=== PATIENT | male | born 1965 | race Caucasian/White ===

== ENCOUNTER 2019-02-03 20:39 | Emergency (ER) | payer BC ==
[2019-02-03] MEDS ORDERED: Nitroglycerin 2% Ointment 1 INCH/1 GM Packet ONE (21:01)
[2019-02-03] MEDS ORDERED: Aspirin Chewable 81 MG TAB ONE (21:01)
[2019-02-03] MEDS ORDERED: Famotidine/PF 20 mg/2ml Vial ONE (21:13)
[2019-02-03] MEDS ORDERED: Lidocaine Viscous Sol 2% 15 ml UD Cup ONE (21:13)
[2019-02-03] MEDS ORDERED: Mag-Al Plus 1200 MG/1200 MG/120 MG/30 ML UDCUP ONE (21:13)
[2019-02-03 21:15] LABS: #Basophils 0.1 thou/uL (0.0-0.2); #Eosinphils 0.1 thou/uL (0.0-0.7); #Lymphocytes 1.5 thou/uL (1.20-3.40); #Monocytes 0.8 thou/uL (0.11-0.59); #Neutrophils 5.4 thou/uL (1.40-6.50); %Basophils 1.7 % (0.0-1.0); %Eosinophils 1.6 % (0.0-10.0); %Lymphocytes 19.1 % (21.0-51.0); %Neutrophils 67.6 % (42.0-75.0); Hemoglobin 16.1 g/dL (14.0-18.0); Mean Corpuscular HGB CONC 34.8 g/dL (32.0-36.0); Mean Corpuscular Hemoglobin 32.8 pg (27.0-31.0); Mean Corpuscular Volume 94.3 fL (78.0-98.0); Mean Platelet Volume 6.6 fL (7.4-10.4); Platelet Count 243 thou/uL (130-400); RBC Distribution Width 11.1 % (11.5-14.5); Red Blood Cell (RBC) Count 4.91 mill/uL (4.70-6.10)
[2019-02-03 21:20] LABS: ALT (SGPT) 51 U/L (8-55); AST (SGOT) 41 U/L (5-34); Albumin 4.7 g/dL (3.5-5.0); Alkaline Phosphatase 74 U/L (40-150); Anion Gap 14 mmol/L (10-20); BUN (Urea Nitrogen) 12 mg/dL (8.4-25.7); Bilirubin, Total 1.1 mg/dL (0.2-1.2); CK (CPK) 229 U/L (30-200); Calc. Creatinine Clearance 0 mL/min (70-130); Calcium 10.4 mg/dL (7.8-10.44); Carbon Dioxide 29 mmol/L (22-29); Chloride 103 mmol/L (98-107); Estimated GFR-MDRD 87; Globulin 3.6 g/dL (2.4-3.5); Glucose 96 mg/dL (70-105); Potassium 3.6 mmol/L (3.5-5.1); Protein, Total 8.3 g/dL (6.0-8.3); Sodium 142 mmol/L (136-145)
--- NOTE | 2019-02-03 21:49 | RAD ---
EXAM: CHEST ONE VIEW HISTORY: Chest pain and shortness of breath for one day. COMPARISON: 04/11/2015 FINDINGS: Cardiac silhouette and bronchovascular markings are accentuated by shallow depth inspiration and port able technique. There is overlying soft tissue density as well as cardiac silhouette limiting evaluation of each lung base. However, the lungs are grossly clear. Multiple remote left-sided rib fr actures are seen. [place] screws overlie the right humeral head. No other interval change. IMPRESSION: 1. Limited exam due to shallow depth inspiration, but no acute cardiopulmonary process is appreciated . 2. Multiple remote left-sided rib fractures.
[2019-02-04 00:26] LABS: Troponin I 0.018 ng/mL (< 0.028)
== END 2019-02-04 00:30 | disposition home or self-care (01) ==
LOC: SCSER 20:39
DX: R07.89 Other chest pain (principal); I10 Essential (primary) hypertension
CPT/HCPCS: 71045; 80053; 82550; 84484; 85025; 85379; 93005; 96374; S0028

== ENCOUNTER 2019-06-22 09:40 | Inpatient (IN) | payer BC ==
[2019-06-22 10:16] LABS: Actual Bicarbonate (HCO3a) 15.1 mEq/L (22-28); Analyzer IN Cardio ER; Base Excess (BEa) -9.6 mEq/L (-2.0 to +3.0); Calcium, Ionized 0.69 mmol/L (1.12-1.30); Hemoglobin (Hb) 14.5 g/dL (14.0-18.0); O2 Tension (PaO2) 82.6 mmHg (80.0-100.0); Potassium - ABG Lab 3.47 mmol/L (3.70-5.30); pH, Arterial 7.32 (7.35-7.45)
[2019-06-22 10:18] LABS: Puncture Site RRA
[2019-06-22 10:21] LABS: Hemoglobin 14.7 g/dL (14.0-18.0); Mean Corpuscular HGB CONC 33.5 g/dL (32.0-36.0); Mean Corpuscular Hemoglobin 33.9 pg (27.0-31.0); Mean Platelet Volume 7.4 fL (7.4-10.4); Platelet Count 215 thou/uL (130-400); RBC Distribution Width 12.8 % (11.5-14.5); Red Blood Cell (RBC) Count 4.34 mill/uL (4.70-6.10); White Blood Cell (WBC) Count 16.4 thou/uL (4.8-10.8)
[2019-06-22 10:32] LABS: ALT (SGPT) 21 U/L (8-55); AST (SGOT) 28 U/L (5-34); Albumin 3.1 g/dL (3.5-5.0); Alkaline Phosphatase 48 U/L (40-110); Anion Gap 22 mmol/L (10-20); BUN (Urea Nitrogen) 76 mg/dL (8.4-25.7); Bilirubin, Total 1.1 mg/dL (0.2-1.2); CK (CPK) 447 U/L (30-200); Calc. Creatinine Clearance 0 mL/min (70-130); Carbon Dioxide 12 mmol/L (22-29); Chloride 102 mmol/L (98-107); Estimated GFR-MDRD 10; Globulin 3.5 g/dL (2.4-3.5); Glucose 104 mg/dL (70-105); Lipase 157 U/L (8-78); Potassium 3.6 mmol/L (3.5-5.1); Protein, Total 6.6 g/dL (6.0-8.3); Sodium 132 mmol/L (136-145)
[2019-06-22 10:47] LABS: Band 12 % (5-11); Lymphocytes 8 % (21-51); MDiff Complete? YES; Metamyelocyte 2 % (0-0); Monocytes 17 % (0-10); Neutrophil 61 % (42-75); Platelet Morphology Comment Appears Adequate
[2019-06-22] MEDS ORDERED: Calcium Gluconate 100 MG/ML 10 ML IVPB STA (15:19)
[2019-06-22] MEDS ORDERED: Calcium Gluconate 13.8 MEQ, Admixture Fee 1 EACH in Sodium Chloride 0.9% 100 ML IVPB SCH ×2 (15:30→15:45)
[2019-06-22] MEDS ORDERED: Morphine 2 MG/ML SYRINGE SLOW IVP PRN (15:54)
[2019-06-22] MEDS ORDERED: Lactated Ringer's 1,000 ML IV SCH ×2 (16:00→17:00)
[2019-06-22] MEDS ORDERED: Pantoprazole 40 MG VIAL IVP SCH (16:00)
[2019-06-22] MEDS ORDERED: Morphine 4 MG/ML VIAL SLOW IVP PRN (16:16)
--- NOTE | 2019-06-22 16:26 | HP ---
PRIMARY CARE PHYSICIAN: Alexis Jimenez MD CHIEF COMPLAINT: Worsening abdominal pain, intractable nausea, vomiting, and diarrhea. HISTORY OF PRESENT ILLNESS: A 54-year-old male with past medical history significant for gastroesophageal reflux disease and hypertension, who presents to the ER with worsening abdominal pain and distention as well as frequent loose stools. The patient had initially presented to the [facility], from where he was transferred over here. The patient reportedly developed nausea, vomiting, and frequent loose stools four days ago after a meal of shrimp soup as well as a hamburger. He has had multiple episodes of emesis with last one being two days ago. He has been having frequent loose stools about uncountable times every day since onset of symptoms with last BM being earlier on before my visit. The patient later developed abdominal distention as well as abdominal pain, for which he has taken multiple tablets of Aleve, totaling about 16 tablets since onset of symptoms. The patient also took about six tablets of ibuprofen PM due to insomnia. Of note, the patient is on lisinopril and hydrochlorothiazide, and he has continued to be on these medications since onset of symptoms. He reported generalized weakness as well as dizziness, but denied hematemesis, melena, or hematochezia. Of note, the patient reported that his last urine was 2 days ago and he has not made any urine since Sunday. Due to worsening symptoms, he presented to [facility], where an evaluation with CT scan of the abdomen showed edema of the pancreas consistent with acute pancreatitis. The patient also was found to have acute renal failure as well as severe hypocalcemia with serum calcium of 5.0. The patient was treated with IV fluid and calcium gluconate and had an NG tube inserted and was subsequently transferred over here. Despite treatment with IV fluid, the patient has not made any urine. In the ER here, the patient received normal saline and is being admitted for further evaluation and treatment. There is no history of fever, chills, leg swelling, chest pain, change in mental status, or headache. The patient also denied any fall. Prior to anuria, he denied dysuria. The patient reported that due to the frequency of diarrhea, nausea, and vomiting, he had poor oral intake and was only able to drink some water in the last few days since the vomiting subsided, but he, however, continued to have multiple episodes of frequent loose stools. PAST MEDICAL HISTORY: 1. Hypertension. 2. Gastroesophageal reflux disease. PAST SURGICAL HISTORY: Orthopedic surgery of left lower extremity and ankle. FAMILY HISTORY: Noncontributory. Reviewed. SOCIAL HISTORY: The patient is a former smoker. Last smoking was about 20 years ago. He, however, drinks daily with about 1 to 3 drinks. Denied prior withdrawal symptoms. Denied recreational drug use. ALLERGIES: NO KNOWN DRUG ALLERGY REPORTED. HOME MEDICATIONS: 1. Lisinopril/hydrochlorothiazide 10/12.5 one tablet p.o. daily. 2. Protonix 20 mg p.o. daily. REVIEW OF SYSTEMS: A 12-point review of system performed was negative other than pertinent positives and negatives included in the history of present illness. PHYSICAL EXAMINATION: VITAL SIGNS: Current vitals showed BP of 106/87, pulse 101, respiratory rate 30, SpO2 of 100% on room air. Of note, on presentation to [facility], initial vitals showed BP of 72/45, pulse of 120, respiratory rate of 28, temperature of 97.5, SpO2 of 99% on room air. GENERAL: Male patient, in mild distress. Afebrile. Anicteric. Acyanotic. HEENT: Normocephalic, atraumatic. Oral mucosa is dry. NECK: Supple and nontender with good range of motion. No obvious masses or lymphadenopathy appreciated. CARDIOVASCULAR: Regular rhythm and rate with normal heart sounds 1 and 2. Tachycardic. No obvious murmur was appreciated. RESPIRATORY: Good air entry bilaterally with no obvious crackle, rhonchi, or use of accessory muscles. GASTROINTESTINAL: Abdomen is distended and tympanitic. Bowel sound is noted, but seems hypoactive. Mild diffuse tenderness is appreciated. EXTREMITIES: Grossly normal, looking atraumatic with no obvious edema or erythema. SKIN: No obvious rash appreciated. CENTRAL NERVOUS SYSTEM: Conscious, alert, and oriented x3 with appropriate mental status. Cranial nerves 2 through 12 are grossly intact. The patient moves all extremities. LABORATORY DATA: Initial CBC performed today at [facility] showed WBC count of 16.3, hemoglobin of 15.3, MCV of 94.0, platelets of 223. Initial CMP performed at [facility] showed sodium 135, potassium 3.5, chloride 100, CO2 of 16, anion gap 23, BUN 80, creatinine 6.73, glucose 123, calcium 5.9, magnesium 2.9, total bilirubin 1.2, AST 28, ALT 25, alkaline phosphatase 66, total protein 7.5, albumin 3.7, globulin 3.8. Repeat CMP here 3 hours later showed sodium 132, potassium 3.6, chloride 102, CO2 of 12, anion gap 22, BUN 76, creatinine 5.96, glucose 104, calcium 5.0, total bilirubin 1.0, AST 28, ALT 21, alkaline phosphatase 48, total protein 6.6, albumin 3.1, globulin 3.5. Troponin x2 has been unremarkable. BNP is less than 10. CK is 447. Lipase is 175. Blood gas performed here showed pH of 7.32, pCO2 of 30, pO2 of 82.6, ionized calcium of 0.69. Plasma alcohol level was less than 10. Chest x-ray performed at [facility] showed no airspace density, pulmonary edema or pneumothorax. CT scan of the abdomen and pelvis without contrast showed somewhat severe retroperitoneal edema, evidence of acute pancreatitis as well as fluid collection within mckeon, broadly abutting the undersurface of the stomach. EKG showed sinus tachycardia with rate of 101. ASSESSMENT: 1. Acute pancreatitis with possible pseudocyst formation. 2. Acute severe gastroenteritis. 3. Hypovolemic shock from acute gastroenteritis and pancreatitis. 4. Acute renal failure: Due to hemodynamic factors related to volume depletion, lisinopril use as well as nonsteroidal anti-inflammatory drugs. Superimposed acute tubular necrosis cannot be ruled out. 5. Severe hypocalcemia: This is most likely due to acute pancreatitis. 6. Nonsteroidal anti-inflammatory drug abuse. 7. High anion gap metabolic acidosis. 8. Hyponatremia. 9. History of hypertension: Now hypotensive. 10. Gastroesophageal reflux disease. 11. Presumed food poisoning. 12. Frequent loose stools: Thought to be due to food poisoning and infectious acute gastroenteritis. 13. Nausea and vomiting: Subsided. 14. Abdominal distention. PLAN: 1. We will continue IV resuscitation with bicarb containing fluids and monitor vitals as well as urine output. 2. We will replete serum calcium level. 3. We will start the patient on broad-spectrum antibiotic therapy. 4. We will continue NG tube decompression. 5. We will consult GI. 6. We will monitor electrolytes closely and replete as needed. 7. N.p.o. for now to continue. 8. We will start the patient on Protonix for GI bleeding prophylaxis. 9. DVT prophylaxis with SCDs will be provided. 10. We will hold antihypertensives for now. 11. The patient will be admitted to IM as he is critically ill with guarded prognosis. 12. Further treatment to follow depending on hospital course. Job ID: [id number]
[2019-06-22 16:28] LABS: Albumin 3.2 g/dL (3.5-5.0); BUN (Urea Nitrogen) 77 mg/dL (8.4-25.7); BUN/Creatinine Ratio 12.73; Calc. Creatinine Clearance 0 mL/min (70-130); Chloride 105 mmol/L (98-107); Estimated GFR-MDRD 10; Glucose 104 mg/dL (70-105); Potassium 3.7 mmol/L (3.5-5.1); Sodium 136 mmol/L (136-145)
[2019-06-22 16:47] LABS: Calcium 5.2 mg/dL (7.8-10.44); Carbon Dioxide Less than 8 mmol/L (22-29); Phosphorus 1.8 mg/dL (2.3-4.7)
[2019-06-22] MEDS: Sodium Bicarbonate 150 MEQ in Dextrose 5% in Water 1,000 ML IV SCH ×2 (19:30→23:09)
[2019-06-22 19:37] LABS: Albumin 3.1 g/dL (3.5-5.0); Anion Gap 19 mmol/L (10-20); BUN (Urea Nitrogen) 82 mg/dL (8.4-25.7); BUN/Creatinine Ratio 14.44; Calc. Creatinine Clearance 21 mL/min (70-130); Calcium 4.7 mg/dL (7.8-10.44); Carbon Dioxide 20 mmol/L (22-29); Chloride 98 mmol/L (98-107); Estimated GFR-MDRD 10; Glucose 81 mg/dL (70-105); Phosphorus 3.3 mg/dL (2.3-4.7); Sodium 134 mmol/L (136-145)
--- NOTE | 2019-06-22 21:55 | CON ---
DATE OF CONSULTATION: 06/22/2019 REASON FOR CONSULTATION: Acute pancreatitis. CONSULTING PROVIDER: Dr. Jersey Nance. HISTORY OF PRESENT ILLNESS: The patient is a 54-year-old male with past medical history of GERD, hypertension, and alcohol abuse presenting with complaints of abdominal pain. He states that he was in his usual state of health until approximately 3 days ago when he experienced increased nausea and vomiting characterized as 12 discrete episodes over the course of 24 hours with nonbloody emesis. However, the following day, this resolved into more of a queasy like sensations throughout his entire body in addition to diarrhea, having approximately 4-5 liquid dark brown bowel movements over the last couple days. He did have some darker colored almost black stools, but this was associated with the ingestion of Pepto-Bismol at the same time. However, approximately 2 days ago, he began having increased periumbilical abdominal pain characterized as a pressure/sharp type sensation. It would radiate to the lower abdominal quadrants and right and left flanks. It was intermittent where it would occur for every 30 to 60 minutes and would last for seconds in duration and then resolve. The pain did not have any clear alleviating or exacerbating factors, although he did notice that his pain would sometimes get worse with bending over. This was associated with increased abdominal distention, subjective fevers and chills. However, he denies any hematemesis, melena, hematochezia, dysphagia, odynophagia. With worsening of his symptoms and worsening of his pain, it prompted him to seek healthcare assistance at [facility]. While in the ER, he was noted to have acute kidney injury in addition to CT findings consistent with acute pancreatitis. He was subsequently transferred to [facility] for further evaluation and management. REVIEW OF SYSTEMS: A 10-category review of systems was obtained with all responses negative except for the pertinent positives as listed in HPI. PAST MEDICAL HISTORY: As per HPI. PAST SURGICAL HISTORY: Left lower extremity fracture with internal fixation. FAMILY HISTORY: Denies any GI malignancies. SOCIAL HISTORY: Former tobacco use, but quit 20 years ago. Drinks approximately a six-pack daily along with vodka and water daily. Denies any illicit drug use. OUTPATIENT MEDICATIONS: 1. Lisinopril/hydrochlorothiazide 10/12.5 mg tablet daily. 2. Protonix 20 mg daily. ALLERGIES: NO KNOWN DRUG ALLERGIES. PHYSICAL EXAMINATION: VITAL SIGNS: Temperature 97.6, pulse 101, blood pressure 106/87, respiratory rate 30, saturating 100% on room air. GENERAL: The patient was lying in bed, in no acute distress. Alert and oriented x4. HEENT: Normocephalic, atraumatic. NECK: Supple. No JVD or scleral icterus noted. CARDIOVASCULAR: Tachycardic rate, but regular rhythm. No discernible murmurs, gallops, or rubs. RESPIRATORY: Clear to auscultation bilaterally with no discernible wheezes or rales. ABDOMEN: Hypoactive bowel sounds. Soft. Mild abdominal distention that is tympanic to percussion. Increased tenderness to palpation in the right flank, periumbilical, left flank and suprapubic regions. EXTREMITIES: No cyanosis, clubbing, or edema. LABORATORY DATA: CBC with a white blood cell count of 16.4, hemoglobin 14.7, hematocrit 43.9, platelets 215. Chemistry with a sodium of 132, potassium 3.6, chloride 102, CO2 12, BUN 76, creatinine 5.96, glucose 104, AST 28, ALT 21, alkaline phosphatase 48, total bilirubin 1.1, albumin 3.1, lipase 157, calcium 5. IMAGING DATA: CT of the abdomen and pelvis was obtained on June 22, 2019, which showed severe fat stranding surrounding the entire pancreas and spleen. The spleen did note an irregular contour and shape with indeterminate significance, heterogeneous features were seen in the liver consistent with fatty liver. However, there was also an increased amount of retroperitoneal edema and a 10 x 4 x 4 cm fluid collection abutting the caudal surface of the stomach consistent with a pseudocyst. ASSESSMENT AND PLAN: The patient is a 54-year-old male with past medical history of gastroesophageal reflux disease, hypertension, and alcohol abuse, presenting with acute pancreatitis. Acute pancreatitis. The patient is presenting with acute onset of nausea, vomiting, diarrhea, and periumbilical abdominal pain that has been progressively worsening over the last 3 or 4 days. Upon entry into the [facility], he was noted to have an elevated white blood cell count in addition to elevated BUN and creatinine concerning for acute kidney injury. However, CT scan also showed severe fat stranding surrounding the entire pancreas as well as a mildly elevated lipase consistent with acute pancreatitis. He is also exhibiting severe hypocalcemia most likely due to the onset of pancreatitis and has received 2 g of calcium gluconate thus far at the [facility]. At this time, I would characterize his pancreatitis as moderately severe with the formation of the pancreatic pseudocyst. At this time, he would benefit from aggressive IV fluid resuscitation in addition to n.p.o. and pain control. RECOMMENDATIONS: 1. We would start the patient on goal-directed therapy with aggressive IV fluid resuscitation with either normal saline or lactated Ringer's at approximately 3 mL/kg per hour. Given the patient's tenuous kidney function, he may have sustained acute tubular necrosis as result of increased NSAID use, so careful attention will need to be on his volume status to avoid hypervolemia. 2. Pain control per primary team. 3. We will keep the patient n.p.o. for now in light of acute pancreatitis. There was some concern about a possible small bowel obstruction, but based on imaging seems more of an ileus. Continuation of the NG tube to low intermittent wall suction is fine. 4. With aggressive IV fluid resuscitation, again careful attention should be paid to hypervolemia and may need serial bladder pressures in order to monitor for possible abdominal compartment syndrome. 5. We will continue to monitor electrolytes, specifically magnesium and calcium and replacement as needed. 6. We will continue to follow. Please call with any questions. Job ID: [id number]
[2019-06-22] MEDS: Lactated Ringer's 1,000 ML IV SCH (23:17)
[2019-06-23] MEDS: Lactated Ringer's 1,000 ML IV SCH ×8 (03:01→21:50)
--- NOTE | 2019-06-23 03:37 | CON ---
DATE OF CONSULTATION: 06/22/2019 CONSULTING PHYSICIAN: Dr. Nance from ER. REASON FOR CONSULT: Acute kidney injury. REASON FOR ADMISSION: Nausea, vomiting, and diarrhea. HISTORY OF PRESENT ILLNESS: A 54-year-old male with history of hypertension, GERD, alcohol use, came to the hospital with abdominal pain, nausea, vomiting. The patient was found to have elevated creatinine. His creatinine was found to be 6.05 with a bicarb of 8 and Nephrology consulted. The patient is feeling better. He was on IV fluids and is currently seen in IM. Denies any chest pain or palpitation. No fever or chills. PAST MEDICAL HISTORY: Positive for hypertension, GERD, and alcohol use. PAST SURGICAL HISTORY: Orthopedic surgery. HOME MEDICATIONS: Lisinopril, hydrochlorothiazide, Protonix. ALLERGIES: NO KNOWN DRUG ALLERGIES. SOCIAL HISTORY: He is a former smoker and drinks vodka daily. FAMILY HISTORY: No history of kidney disease. REVIEW OF SYSTEMS: CONSTITUTIONAL: Negative for weight loss or gain, ability to conduct usual activities. SKIN: Negative for rash, itching. EYES: Negative for double vision, pain. ENT/MOUTH: Negative for nose bleeding, neck stiffness, pain, tenderness. CARDIOVASCULAR: Negative for palpitations, dyspnea on exertion, orthopnea. RESPIRATORY: Negative for shortness of breath, wheezing, cough, hemoptysis, fever or night sweats. GASTROINTESTINAL: Negative for poor appetite, abdominal pain, heartburn, nausea, vomiting, constipation, or diarrhea. GENITOURINARY: Negative for urgency, frequency, dysuria, nocturia. MUSCULOSKELETAL: Negative for pain, swelling. NEUROLOGIC/PSYCHIATRIC: Negative for anxiety, depression. ALLERGY/IMMUNOLOGIC: Negative for skin rash, bleeding tendency. PHYSICAL EXAMINATION: GENERAL: Reveals a well-built male, in no apparent distress. VITAL SIGNS: Temperature 97.5, pulse 101, respiratory rate 28, blood pressure 106/87. HEENT: Atraumatic, normocephalic. Oral mucosa is moist. NECK: Supple. CV: S1, S2 heard. Rate and rhythm regular. RESPIRATORY: Clear to auscultation. GASTROINTESTINAL: Abdomen is soft. MUSCULOSKELETAL: 1+ edema. DERMATOLOGIC: No skin rash. NEUROLOGIC: Alert and awake. PSYCHOLOGIC: Mood and affect normal. LABORATORY DATA: Potassium 3.0, BUN is 82, creatinine is 5.6. ASSESSMENT AND PLAN: 1. Acute kidney injury, most likely from volume depletion. Agree with hydration. 2. Hypokalemia. Currently on LR. Monitor. 3. Metabolic acidosis. Bicarb level is better. 4. Hypocalcemia, on calcium supplement. 5. Hypoalbuminemia. 6. Leukocytosis and pancreatitis. 7. Continue supportive care and hold nephrotoxins including lisinopril, and avoid nephrotoxins. Renally dose medications. We will continue to follow. Thank you for the consult. Job ID: [id number]
[2019-06-23 05:25] LABS: ALT (SGPT) 19 U/L (8-55); AST (SGOT) 25 U/L (5-34); Albumin 2.9 g/dL (3.5-5.0); Alkaline Phosphatase 53 U/L (40-110); Anion Gap 18 mmol/L (10-20); BUN (Urea Nitrogen) 80 mg/dL (8.4-25.7); Bilirubin, Total 0.9 mg/dL (0.2-1.2); Calc. Creatinine Clearance 26 mL/min (70-130); Carbon Dioxide 20 mmol/L (22-29); Chloride 101 mmol/L (98-107); Estimated GFR-MDRD 13; Globulin 3.4 g/dL (2.4-3.5); Glucose 98 mg/dL (70-105); Potassium 3.6 mmol/L (3.5-5.1); Protein, Total 6.3 g/dL (6.0-8.3); Sodium 135 mmol/L (136-145)
[2019-06-23 05:29] LABS: Calcium 5.3 mg/dL (7.8-10.44)
[2019-06-23 05:32] LABS: Band 26 % (5-11); Eosinophils 1 % (0-10); Hemoglobin 12.8 g/dL (14.0-18.0); Hypochromia SLIGHT = 6-15 cells (100X) (0-5/hpf); Lymphocytes 6 % (21-51); MDiff Complete? YES; Mean Corpuscular HGB CONC 34.8 g/dL (32.0-36.0); Mean Corpuscular Hemoglobin 34.4 pg (27.0-31.0); Mean Corpuscular Volume 98.8 fL (78.0-98.0); Mean Platelet Volume 6.8 fL (7.4-10.4); Metamyelocyte 2 % (0-0); Monocytes 15 % (0-10); Neutrophil 50 % (42-75); Platelet Count 204 thou/uL (130-400); Platelet Morphology Comment Appears Adequate; RBC Distribution Width 12.5 % (11.5-14.5); Red Blood Cell (RBC) Count 3.73 mill/uL (4.70-6.10)
[2019-06-23] MEDS ORDERED: Calcium Gluconate 13.8 MEQ in Sodium Chloride 0.9% 100 ML IVPB SCH (07:00)
[2019-06-23] MEDS ORDERED: FLU VACC QS2019-20(6MOS UP)/PF 60 MCG/0.5 ML SYRINGE IM ONE (09:00)
[2019-06-23] MEDS: Pantoprazole 40 MG VIAL IVP SCH (10:07)
--- NOTE | 2019-06-23 10:26 | PRG ---
DATE OF SERVICE: 06/23/2019 SUBJECTIVE: This is a 54-year-old male being seen for acute kidney injury. The patient denied nausea, vomiting, or chest pain. OBJECTIVE: See above. The patient is awake and alert, in no acute distress. VITAL SIGNS: Pulse 80, breathing , blood pressure 128/84. GENERAL APPEARANCE AND MENTAL STATUS: Fair. HEAD/NECK: Normocephalic. Atraumatic. EYES: EOMI. No deformity. EARS: Clear. No ulcers. NOSE: Intact. No lesions. MOUTH: Clear. No discharge. THROAT: Clear. No exudate. LUNGS: Clear. No crackles. CARDIAC: S1, S2. No rub. ABDOMEN: Benign. Bowel sounds positive. GENITALIA/RECTUM: Clark absent. BACK/EXTREMITIES: Edema 0+. NEUROLOGICAL: Alert and motor intact. SKIN: LYMPHATICS: LABORATORY DATA: Labs reviewed. ASSESSMENT AND PLAN: 1. Stage 5 chronic kidney disease. No indication for dialysis. 2. Hypertension, stable. 3. Anemia, stable. Continue hydration. No indication for dialysis. 4. Hypocalcemia. Would recommend aggressive calcium replacement with vitamin D. Job ID: [id number]
[2019-06-23 13:41] LABS: Albumin 3.1 g/dL (3.5-5.0); Anion Gap 17 mmol/L (10-20); BUN (Urea Nitrogen) 71 mg/dL (8.4-25.7); BUN/Creatinine Ratio 19.35; Calc. Creatinine Clearance 34 mL/min (70-130); Carbon Dioxide 21 mmol/L (22-29); Chloride 102 mmol/L (98-107); Estimated GFR-MDRD 17; Glucose 87 mg/dL (70-105); Phosphorus 3.4 mg/dL (2.3-4.7); Sodium 137 mmol/L (136-145)
[2019-06-23 13:49] LABS: Calcium 5.8 mg/dL (7.8-10.44); Potassium 2.8 mmol/L (3.5-5.1)
[2019-06-23 14:45] VITALS: BMI 32.1
[2019-06-23 14:54] LABS: Bacteria/HPF None Seen HPF (None Seen); Bilirubin Negative (Negative); Blood, Urine 2+ (Negative); Clarity Clear (Clear); Glucose, Urine (Dipstick) Normal (Negative); Leukocyte Negative Leu/uL (Negative); Nitrite Negative (Negative); Protein, Urine (Dipstick) 50 mg/dL (Neg-Trace); RBC/HPF 0-3 HPF (0-3); Squamous Epithelial None Seen HPF (0-3); Urobilinogen Normal mg/dL (Less than 2); WBC/HPF 0-3 HPF (0-3)
--- NOTE | 2019-06-23 15:03 | PDOC.HOSPP ---
- Subjective Encounter Date: 06/23/19 Encounter Time: 15:03 Subjective: 54 y/o male with GERD and HTN admitted with worsening abdominal pain and distension associated with nausea, vomiting and diarrhea. Ct showed features of acute pancreatitis. patient also has acute renal failure associated with metabolic acidosis and severe hypocalcemia. feeling better but abdominal distension persists. No fever. Nausea and vomiting has subsided. Still having some loose stools though frequency has decreased - Objective Vital Signs & Weight: Vital Signs (12 hours) Temp Pulse Ox 06/23/19 11:22 97.8 F 06/23/19 08:00 100 06/23/19 07:13 98.2 F 06/23/19 03:47 98.4 F Weight Admit Weight 220 lb Weight 230 lb 12.8 oz Most Recent Monitor Data Heart Rate from ECG 100 NIBP 142/79 NIBP BP-Mean 100 Respiration from ECG 26 SpO2 100 I&O: 06/22/19 06/23/19 06/24/19 06:59 06:59 06:59 Intake Total 2692 Output Total 1000 500 Balance -1000 2192 Result Diagrams: 06/23/19 04:32 06/23/19 12:55 Hospitalist ROS - Medication Medications: Active Medications Generic Name Dose Route Start Last Admin Trade Name Freq PRN Reason Stop Dose Admin Lactated Ringer's 1,000 mls @ 300 mls/hr 06/23/19 11:32 06/23/19 12:05 Lactated Ringer's IV 1,000 mls .[id number] ARCHIE Administration Pantoprazole Sodium 40 mg 06/23/19 09:00 06/23/19 10:07 Protonix IVP 40 mg DAILY ARCHIE Administration Sodium Chloride 10 ml 06/22/19 21:00 06/23/19 10:07 Flush - Normal Saline IVF 10 ml Q12HR ARCHIE Administration - Exam General Appearance: awake alert Eye: PERRL, anicteric sclera ENT: normocephalic atraumatic Neck: supple, symmetric, no JVD Heart: RRR Heart - other findings: tachycardic Respiratory: no wheezes, no rales, no ronchi Respiratory - other findings: fair air entry bilaterally Gastrointestinal: tender to palpation, distended, diminished bowl sounds Extremities: no cyanosis, no edema Neurological: cranial nerve grossly intact, no focal deficits Musculoskeletal: normal tone, no muscle wasting Psychiatric: normal affect, A&O x 3 Hosp A/P (1) Acute pancreatitis Code(s): K85.90 - ACUTE PANCREATITIS WITHOUT NECROSIS OR INFECTION, UNSP Status: Acute (2) Acute renal failure Status: Acute (3) Adynamic ileus Code(s): K56.0 - PARALYTIC ILEUS Status: Acute (4) Metabolic acidosis Code(s): E87.2 - ACIDOSIS Status: Acute (5) Hypocalcemia Code(s): E83.51 - HYPOCALCEMIA Status: Acute (6) Hypokalemia Code(s): E87.6 - HYPOKALEMIA Status: Acute (7) Abdominal distension Code(s): R14.0 - ABDOMINAL DISTENSION (GASEOUS) Status: Acute (8) Acute infective gastroenteritis Code(s): A09 - INFECTIOUS GASTROENTERITIS AND COLITIS, UNSPECIFIED Status: Acute (9) Volume depletion Code(s): E86.9 - VOLUME DEPLETION, UNSPECIFIED Status: Acute (10) Shock circulatory Code(s): R57.9 - SHOCK, UNSPECIFIED Status: Acute - Plan Increase LR to 300 cc/hr. monitor closely for fluid overload. follow electrolytes and replete. patient has severe hypocalcemia from saponification. Will 19.4 meq of calcium gluconate as well as 40 meq of KCL. Continue NG decompression and NPO. Will place PICC to facilitate electrolyte correction. parenteral nutrition is contemplated in the next few days unless ileus resolves. Monitor for abdominal compartment syndrom. monitor renal function. Analgesic as needed. Appreciate GI and nephrology input
[2019-06-23] MEDS ORDERED: Potassium Chloride 40 MEQ in Sodium Chloride 0.9% 250 ML 250 ML IVPB SCH ×2 (15:45→21:30)
[2019-06-23 20:23] LABS: Albumin 3.3 g/dL (3.5-5.0); Anion Gap 16 mmol/L (10-20); BUN (Urea Nitrogen) 64 mg/dL (8.4-25.7); BUN/Creatinine Ratio 21.62; Calc. Creatinine Clearance 42 mL/min (70-130); Calcium 6.5 mg/dL (7.8-10.44); Carbon Dioxide 22 mmol/L (22-29); Chloride 105 mmol/L (98-107); Estimated GFR-MDRD 22; Glucose 78 mg/dL (70-105); Potassium 3.1 mmol/L (3.5-5.1); Sodium 140 mmol/L (136-145)
--- NOTE | 2019-06-23 20:25 | CON ---
DATE OF CONSULTATION: HISTORY OF PRESENT ILLNESS: Jersey Herbert is a very pleasant 54-year-old male, who has been experiencing abdominal discomfort, nausea, vomiting, and diarrhea for 4 to 5 days. He thinks he got food poisoning from a dive in [place]. Subsequently, he has been admitted here. He has an NG tube in place and says he feels much better. Never had a similar episode in the past. Not a daily drinker. PAST MEDICAL HISTORY: Remarkable for getting his right lower extremity trapped in farming hardware. It was so embedded in the hardware. They had to get cutting torch and cut a piece off the hardware behind the tractor to get his leg out to take him to the hospital. Apparently, he had a tendon translocation and a prolonged surgery to get his foot reattached. He then went to the [facility] in [place], spent 2-1/2 years in the hospital. He has had left lower extremity fracture when he was dancing with his daughter the night before the wedding. This required surgical repair with Dr. Ortega. FAMILY HISTORY: Negative for lung disease in early age. SOCIAL HISTORY: He quit smoking 20 years ago. He drinks on a daily basis, but denies heavy alcohol intake. 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 OUTPATIENT MEDICATIONS: 1. Lisinopril. 2. Hydrochlorothiazide. 3. Protonix. ALLERGIES: HE HAS NO DRUG ALLERGIES. REVIEW OF SYSTEMS: Otherwise, negative. He has never been told he had liver disease or pancreatitis in the past. PHYSICAL EXAMINATION: VITAL SIGNS: He is afebrile. Systolic blood pressure is in the 100 range, respiratory rates in the teens. GENERAL: He is comfortable, in no distress. HEENT: Pupils are equal. Sclerae anicteric. His NG tube with green liquid in the NG tube. NECK: Supple. No lymphadenopathy. LUNGS: Clear. HEART: Regular rhythm. S1 and S2 are normal. ABDOMEN: Nontender. EXTREMITIES: Without clubbing, cyanosis, or edema. NEUROLOGICAL: Nonfocal. LABORATORY DATA: White count 11, hemoglobin 12.8, platelets 204. Sodium 135, potassium 3.6, chloride 101, bicarb 20, BUN 80, creatinine 4.7, creatinine 6.05 when he arrived. AST and ALT are normal. Alkaline phosphatase is normal. Albumin was 2.9. Blood gas 7.32, CO2 30, pO2 82. IMPRESSION: Enteritis symptoms. He had fat stranding around his pancreas, but a minimal elevation of the lipase. On CT scanning, probably has fatty liver and probably does drink more than he admits to. Based on my review of the CT, I suspect he had pancreatitis that is resolving prior to his admission. We will continue with aggressive volume resuscitation per Gastroenterology. At this point in time, he appears to be clinically improving and he says he feels 100% better than he did on admission. TIME SPENT: This is a 70-minute consult, 50% of time spent on the unit coordinating care. Job ID: [id number]
--- NOTE | 2019-06-23 23:50 | PRG ---
DATE OF SERVICE: 06/23/2019 SUBJECTIVE: Mr. Herbert has been feeling better today. He has no significant abdominal pain. No nausea or vomiting. OBJECTIVE: VITAL SIGNS: Temperature 98.3, pulse 107, oxygen saturation 100%. GENERAL: He is in no acute distress. Alert and oriented x3. LUNGS: Clear to auscultation bilaterally. HEART: Regular rate and rhythm without murmur. ABDOMEN: Soft, nontender, nondistended. Bowel sounds are present. EXTREMITIES: No lower extremity edema. LABORATORY DATA: White blood cell count 11.0, hemoglobin is 12.8, down from 14.7 yesterday, platelets 204. Sodium 140, potassium 3.1, BUN 64, creatinine 2.96, calcium 6.5, albumin 3.3. IMPRESSION: 1. Severe acute pancreatitis complicated by acute renal failure. He has hypocalcemia concerning for saponification. He has a significant fluid collection adjacent to the stomach, which is not a mature pseudocyst at this point. RECOMMENDATIONS: 1. IV fluids. His creatinine is improving. His hemoglobin is decreased indicating rehydration. 2. Continue IV fluids. 3. Continue to follow the trend of his labs and clinical status. 4. Replace calcium as needed. Job ID: [id number]
[2019-06-24 04:12] LABS: Band 20 % (5-11); Hemoglobin 12.3 g/dL (14.0-18.0); Lymphocytes 7 % (21-51); MDiff Complete? YES; Mean Corpuscular HGB CONC 34.9 g/dL (32.0-36.0); Mean Corpuscular Hemoglobin 34.2 pg (27.0-31.0); Mean Corpuscular Volume 97.9 fL (78.0-98.0); Mean Platelet Volume 6.5 fL (7.4-10.4); Metamyelocyte 1 % (0-0); Monocytes 20 % (0-10); Neutrophil 52 % (42-75); Platelet Count 200 thou/uL (130-400); Platelet Morphology Comment Appears Adequate; RBC Distribution Width 12.6 % (11.5-14.5); White Blood Cell (WBC) Count 13.7 thou/uL (4.8-10.8)
[2019-06-24 04:17] LABS: ALT (SGPT) 19 U/L (8-55); AST (SGOT) 25 U/L (5-34); Albumin 2.9 g/dL (3.5-5.0); Alkaline Phosphatase 62 U/L (40-110); Anion Gap 17 mmol/L (10-20); BUN (Urea Nitrogen) 54 mg/dL (8.4-25.7); Calc. Creatinine Clearance 52 mL/min (70-130); Calcium 6.7 mg/dL (7.8-10.44); Carbon Dioxide 20 mmol/L (22-29); Chloride 108 mmol/L (98-107); Estimated GFR-MDRD 29; Globulin 3.2 g/dL (2.4-3.5); Glucose 94 mg/dL (70-105); Magnesium 2.2 mg/dL (1.6-2.6); Phosphorus 3.2 mg/dL (2.3-4.7); Potassium 3.2 mmol/L (3.5-5.1); Protein, Total 6.1 g/dL (6.0-8.3); Sodium 142 mmol/L (136-145)
[2019-06-24] MEDS: Lactated Ringer's 1,000 ML IV SCH ×7 (04:30→23:50)
[2019-06-24] MEDS ORDERED: Calcium Gluconate 13.8 MEQ in Sodium Chloride 0.9% 100 ML IVPB SCH (06:00)
[2019-06-24] MEDS: Pantoprazole 40 MG VIAL IVP SCH (10:13)
--- NOTE | 2019-06-24 10:44 | PRG ---
DATE OF SERVICE: 06/24/2019 SUBJECTIVE: This is a 54-year-old gentleman, being seen for acute kidney injury. The patient denied nausea, vomiting, or chest pain. OBJECTIVE: CONSTITUTIONAL: The patient is awake and alert. VITAL SIGNS: Pulse 100, breathing 16, blood pressure 150/95. GENERAL APPEARANCE AND MENTAL STATUS: Fair. HEAD/NECK: Normocephalic. Atraumatic. EYES: EOMI. No deformity. EARS: Clear. No ulcers. NOSE: Intact. No lesions. MOUTH: Clear. No discharge. THROAT: Clear. No exudate. LUNGS: Clear. No crackles. CARDIAC: S1, S2. No rub. ABDOMEN: Benign. Bowel sounds positive. GENITALIA/RECTUM: Clark absent. BACK/EXTREMITIES: Edema 0+. NEUROLOGICAL: Alert and motor intact. SKIN: LYMPHATICS: LABORATORY DATA: Reviewed. ASSESSMENT AND PLAN: 1. Acute kidney injury, improved. Acute tubular necrosis, improved. 2. Hypertension, stable. 3. Anemia, stable. 4. Medication based on GFR, appropriate. 5. Hypokalemia, recommend high potassium diet. 6. Hypocalcemia, continue aggressive replacement. No indication for dialysis. Job ID: [id number]
[2019-06-24] MEDS ORDERED: Lorazepam 2 MG/ML VIAL SLOW IVP PRN (11:04)
[2019-06-24] MEDS ORDERED: Potassium Chloride 40 MEQ in Sodium Chloride 0.9% 250 ML 250 ML IVPB SCH (11:30)
--- NOTE | 2019-06-24 15:16 | PDOC.HOSPP ---
- Subjective Encounter Date: 06/24/19 Encounter Time: 12:16 Subjective: 54 y/o male with GERD and HTN admitted with worsening abdominal pain and distension associated with nausea, vomiting and diarrhea. Ct showed features of acute pancreatitis. patient also has acute renal failure associated with metabolic acidosis and severe hypocalcemia. feeling better but abdominal distension persists. No fever. Nausea and vomiting has subsided. Still having frequent stools though consistency is improving. - Objective Vital Signs & Weight: Vital Signs (12 hours) Temp Pulse Ox 06/24/19 07:24 100 06/24/19 03:38 98.5 F Weight Admit Weight 220 lb Weight 230 lb 12.8 oz Most Recent Monitor Data Heart Rate from ECG 103 NIBP 162/106 NIBP BP-Mean 124 Respiration from ECG 30 SpO2 97 I&O: 06/23/19 06/24/19 06/25/19 06:59 06:59 06:59 Intake Total 9929 Output Total 1000 4475 Balance -1000 5454 Result Diagrams: 06/24/19 03:27 06/24/19 03:27 Hospitalist ROS - Medication Medications: Active Medications Generic Name Dose Route Start Last Admin Trade Name Freq PRN Reason Stop Dose Admin Lactated Ringer's 1,000 mls @ 300 mls/hr 06/23/19 11:32 06/24/19 10:12 Lactated Ringer's IV 1,000 mls .[id number] ARCHIE Administration Calcium Gluconate 18.4 meq/ 400 mls @ 100 mls/hr 06/24/19 15:30 06/23/19 17: 38 Sodium Chloride IVPB 06/24/19 19:29 400 mls 1530 ARCHIE Administration Pantoprazole Sodium 40 mg 06/23/19 09:00 06/24/19 10:13 Protonix IVP 40 mg DAILY ARCHIE Administration Sodium Chloride 10 ml 06/22/19 21:00 06/24/19 10:12 Flush - Normal Saline IVF 10 ml Q12HR ARCHIE Administration - Exam General Appearance: awake alert Eye: PERRL, anicteric sclera ENT: normocephalic atraumatic, moist mucosa Neck: supple, symmetric, no JVD Heart: RRR Heart - other findings: tachycardic Respiratory: no wheezes, no rales, no ronchi Respiratory - other findings: fair air entry bilaterally with no obvious crackles or rhonchi Gastrointestinal: non-tender, distended Gastrointestinal - other findings: bowel sound present Extremities: no cyanosis, no edema Neurological: cranial nerve grossly intact, no focal deficits Psychiatric: normal affect, A&O x 3 Hosp A/P (1) Acute pancreatitis Code(s): K85.90 - ACUTE PANCREATITIS WITHOUT NECROSIS OR INFECTION, UNSP Status: Acute (2) Acute renal failure Status: Acute (3) Adynamic ileus Code(s): K56.0 - PARALYTIC ILEUS Status: Acute (4) Metabolic acidosis Code(s): E87.2 - ACIDOSIS Status: Acute (5) Hypocalcemia Code(s): E83.51 - HYPOCALCEMIA Status: Acute (6) Hypokalemia Code(s): E87.6 - HYPOKALEMIA Status: Acute (7) Abdominal distension Code(s): R14.0 - ABDOMINAL DISTENSION (GASEOUS) Status: Acute (8) Acute infective gastroenteritis Code(s): A09 - INFECTIOUS GASTROENTERITIS AND COLITIS, UNSPECIFIED Status: Acute (9) Volume depletion Code(s): E86.9 - VOLUME DEPLETION, UNSPECIFIED Status: Acute (10) Shock circulatory Code(s): R57.9 - SHOCK, UNSPECIFIED Status: Acute - Plan Continue LR at 300 cc/hr. monitor closely for fluid overload. Replete serum potassium and calcium with calcium gluconate and potassium chloride Follow electrolytes and replete as needed. Start clear liquid diet Monitor for abdominal compartment syndrom. monitor renal function. Analgesic as needed. Appreciate GI and nephrology input
[2019-06-24] MEDS ORDERED: CALCIUM GLUCONATE IVPB SCH (15:30)
[2019-06-24] MEDS ORDERED: SODIUM CHLORIDE 0.9% IVPB SCH (15:30)
--- NOTE | 2019-06-24 16:53 | PRG ---
DATE OF SERVICE: 06/24/2019 SUBJECTIVE: Mr. Herbert is feeling better. His intake and output positive 5454. He had 9929 in. His NG output is actually not recorded. The nurse tells me it is about 100 mL over the last 24 hours. He is eating ice and says he has had a bowel movement. OBJECTIVE: Lungs: Clear. HEART: Regular rhythm. ABDOMEN: Nontender. EXTREMITIES: Without edema. LABORATORY DATA: White count 13.7, hemoglobin 12.3, and platelets 200. Sodium 142, potassium 3.2, chloride 108, bicarb 20, BUN 54, and creatinine 2.38. IMPRESSION: 1. Severe intravascular volume depletion, improving with improving renal function. 2. Pancreatitis, based mostly on clinical presentation and CT findings. PLAN: Continue supportive care. He is ready for the NG tube come out, I will defer to Gastroenterology. Job ID: [id number]
--- NOTE | 2019-06-24 20:02 | PRG ---
DATE OF SERVICE: 06/24/2019 SUBJECTIVE: Mr. Herbert is tolerating clear liquids well. He has no abdominal pain or nausea or vomiting. OBJECTIVE: VITAL SIGNS: Temperature is 99.1, pulse has been in the 100 teens, blood pressure 187/108. GENERAL: He is in no acute distress. Alert and oriented x3. LUNGS: Clear to auscultation bilaterally. HEART: Tachycardic. S1 and S2. ABDOMEN: Soft, nontender, nondistended. Bowel sounds are present. EXTREMITIES: No lower extremity edema. LABORATORY DATA: White blood cell count 13.7, hemoglobin 12.3, platelets 200. Potassium 3.2, BUN 54, creatinine 2.38, albumin 2.9. IMPRESSION: 1. Severe acute alcoholic pancreatitis. Complicated by acute renal failure and hypocalcemia and peripancreatic fluid collection. He treated himself at home prior to admission with nonsteroidal anti-inflammatory drugs and hydrocodone, which likely resulted in his lower lipase at the time of admission; however, he became severely dehydrated by the time he presented, and came in with acute tubular necrosis. 2. Acute renal failure. RECOMMENDATIONS: 1. He is clinically improving. Tolerating clear liquids well. We will advance his diet to a low fat diet as he tolerates. The NG tube has been discontinued. 2. Replace calcium as needed. 3. IV fluids. 4. Follow trend of the creatinine. Job ID: [id number]
[2019-06-24] MEDS ORDERED: Lidocaine Patch Removal 1 EACH TOP SCH (23:59)
[2019-06-25] MEDS ORDERED: hydrALAZINE 20 MG/ML VIAL SLOW IVP PRN (02:21)
--- NOTE | 2019-06-25 03:19 | PDOC.EVN ---
Event Note - Event Note Event Note: Nurse called, pt sob oxygen 96%RA but pt has rhonchi all over and mild exp wheezing. will give him a neb and decrease his rate to 150ml/hr and get cxr.
[2019-06-25] MEDS ORDERED: Ipratropium Bromide 2.5 ml Neb NEB SCH ×2 (03:30→06:30)
[2019-06-25] MEDS ORDERED: Lactated Ringer's 1,000 ML IV SCH (04:39)
[2019-06-25] MEDS ORDERED: Lorazepam 2 MG/ML VIAL SLOW IVP SCH ×2 (04:45→06:00)
[2019-06-25] MEDS ORDERED: Lorazepam 2 MG/ML VIAL SLOW IVP PRN (05:27)
[2019-06-25] MEDS ORDERED: Labetalol HCl 100 MG/20 ML VIAL SLOW IVP SCH (05:30)
[2019-06-25 05:40] LABS: Actual Bicarbonate (HCO3a) 23.9 mEq/L (22-28); Base Excess (BEa) 0.5 mEq/L (-2.0 to +3.0); CO2 Tension 34.8 mmHg (35.0-45.0); Calcium, Ionized 1.01 mmol/L (1.12-1.30); Carboxyhemoglobin (COHb) 0.9 gm% (0.0-3.0); Hemoglobin (Hb) 12.9 g/dL (14.0-18.0); O2 Tension (PaO2) 71.6 mmHg (80.0-100.0); Potassium - ABG Lab 2.76 mmol/L (3.70-5.30); pH, Arterial 7.46 (7.35-7.45)
[2019-06-25 05:42] LABS: Puncture Site RRADIAL
[2019-06-25] MEDS ORDERED: Furosemide 40 MG/4 ML VIAL SLOW IVP SCH (06:00)
[2019-06-25 06:33] VITALS: BP 183/93
[2019-06-25] MEDS: Lactated Ringer's 1,000 ML IV SCH (06:34)
[2019-06-25 07:22] VITALS: TEMP 98.6
--- NOTE | 2019-06-25 08:47 | PRG ---
DATE OF SERVICE: 06/25/2019 SUBJECTIVE: A 54-year-old gentleman being seen for acute kidney injury. The patient denied nausea, vomiting, or chest pain. OBJECTIVE: CONSTITUTIONAL: The patient is awake and alert. VITAL SIGNS: Afebrile, pulse 128, breathing 16, and blood pressure 187/91. GENERAL APPEARANCE AND MENTAL STATUS: Fair. HEAD/NECK: Normocephalic. Atraumatic. EYES: EOMI. No deformity. EARS: Clear. No ulcers. NOSE: Intact. No lesions. MOUTH: Clear. No discharge. THROAT: Clear. No exudate. LUNGS: Clear. No crackles. CARDIAC: S1, S2. No rub. ABDOMEN: Benign. Bowel sounds positive. GENITALIA/RECTUM: Clark absent. BACK/EXTREMITIES: Edema 0+. NEUROLOGICAL: Alert and motor intact. SKIN: LYMPHATICS: LABORATORY DATA: Labs reviewed show creatinine 2.3. ASSESSMENT AND PLAN: Acute kidney injury, improved. Chronic kidney disease stage 4, stable. Hypokalemia, recommend aggressive potassium replacement. Hypocalcemia, improved. I would recommend stopping IV fluids. Tachycardia management per primary team. Job ID: [id number]
--- NOTE | 2019-06-25 09:14 | RAD ---
SINGLE VIEW CHEST: HISTORY: Shortness of breath. COMPARISON: 06/22/2019 FINDINGS: Single view of the chest show normal sized cardiomediastinal silhouette. There is no evidence of cons olidation, mass, or pleural effusion. The bones are unremarkable. IMPRESSION: No evidence of acute cardiopulmonary disease. POS: C
[2019-06-25] MEDS ORDERED: Lidocaine 5% Patch TD SCH (12:00)
--- NOTE | 2019-06-26 14:33 | DIS ---
DATE OF ADMISSION: 06/22/2019 DATE OF DISCHARGE: 06/25/2019 PRIMARY CARE PHYSICIAN: Alexis Jimenez MD DISCHARGE DIAGNOSES: 1. Acute severe pancreatitis with pseudocyst. 2. Acute renal failure. 3. Adynamic ileus. 4. Metabolic acidosis. 5. Severe persistent hypocalcemia. 6. Hypokalemia. 7. Abdominal distention. 8. Suspected acute infective gastroenteritis. 9. Volume depletion. 10. Circulatory shock. 11. Chronic alcohol abuse. 12. Possible alcohol withdrawal. 13. Tachyarrhythmia. 14. Fluid overload. CONSULTS: 1. Gastroenterology. 2. Nephrology. 3. Pulmonary and Critical Care. HOSPITAL COURSE: A 54-year-old male patient with known history of gastroesophageal reflux disease, hypertension, and chronic alcohol use, admitted with worsening abdominal pain and distention associated with nausea, vomiting, and diarrhea. CT scan showed features of acute pancreatitis. The patient also was found to have acute renal failure associated with metabolic acidosis and severe hypocalcemia. The patient was admitted to the [facility] and started on aggressive IV fluid therapy with improvement in renal function. The patient also was started on NG decompression. Severe electrolyte derangements including persistent hypocalcemia and hypokalemia. We addressed. The patient was improving and was started on clear liquid diet. He however decided to leave against medical advice and subsequently went home with . Job ID: [id number]
== END 2019-06-25 09:10 | disposition left against medical advice (07) | DRG 438 ==
LOC: ERS 09:40 → ERHOLD 12:10 → IMCU/EMU 16:53
PROVIDERS: ADMIT Internal Medicine Nephrology; ATTEND Internal Medicine Nephrology
DX: K85.20 Alcohol induced acute pancreatitis without necrosis or infection (principal); R57.8 Other shock; N17.0 Acute kidney failure with tubular necrosis; E87.2 Acidosis; N18.5 Chronic kidney disease, stage 5; I12.0 Hypertensive chronic kidney disease with stage 5 chronic kidney disease or end stage renal disease; K56.0 Paralytic ileus; A09 Infectious gastroenteritis and colitis, unspecified; K86.3 Pseudocyst of pancreas; F10.188 Alcohol abuse with other alcohol-induced disorder; E87.1 Hypo-osmolality and hyponatremia; Z23 Encounter for immunization; K21.9 Gastro-esophageal reflux disease without esophagitis; E83.51 Hypocalcemia; E87.6 Hypokalemia; D72.829 Elevated white blood cell count, unspecified; E87.70 Fluid overload, unspecified; D63.1 Anemia in chronic kidney disease; Z79.899 Other long term (current) drug therapy; Z87.891 Personal history of nicotine dependence; F55.8 Abuse of other non-psychoactive substances
CPT/HCPCS: 36415; 71045; 80053; 81001; 82550; 82805; 83630; 83690; 83735; 84100; 85025; 86140; 87015; 87045; 87046; 87206; 87427; 87449; 90471; 90686; 93005; 94640; 96360; 96361; C9113; G0008; J0360; J1940; J2060; J3480; J3490; J7050; J7070

== ENCOUNTER 2019-06-28 04:48 | Inpatient (IN) | payer BC ==
[2019-06-28 05:36] LABS: Hemoglobin 13.6 g/dL (14.0-18.0); Mean Corpuscular HGB CONC 34.4 g/dL (32.0-36.0); Mean Corpuscular Hemoglobin 33.8 pg (27.0-31.0); Mean Corpuscular Volume 98.2 fL (78.0-98.0); Mean Platelet Volume 6.7 fL (7.4-10.4); Platelet Count 330 thou/uL (130-400); RBC Distribution Width 12.6 % (11.5-14.5); Red Blood Cell (RBC) Count 4.04 mill/uL (4.70-6.10); White Blood Cell (WBC) Count 23.5 thou/uL (4.8-10.8)
[2019-06-28 05:47] LABS: Anion Gap 13 mmol/L (10-20); BUN (Urea Nitrogen) 11 mg/dL (8.4-25.7); Calc. Creatinine Clearance 0 mL/min (70-130); Carbon Dioxide 31 mmol/L (22-29); Chloride 93 mmol/L (98-107); Estimated GFR-MDRD 90; Sodium 134 mmol/L (136-145)
[2019-06-28 05:48] LABS: ALT (SGPT) 17 U/L (8-55); AST (SGOT) 23 U/L (5-34); Albumin 3.1 g/dL (3.5-5.0); Alkaline Phosphatase 114 U/L (40-110); Bilirubin, Total 1.3 mg/dL (0.2-1.2); Calcium 8.3 mg/dL (7.8-10.44); Globulin 4.1 g/dL (2.4-3.5); Glucose 115 mg/dL (70-105); Lipase 9 U/L (8-78); Protein, Total 7.2 g/dL (6.0-8.3)
[2019-06-28 05:53] LABS: Potassium 2.6 mmol/L (3.5-5.1)
[2019-06-28 05:54] LABS: Band 7 % (5-11); Lymphocytes 8 % (21-51); MDiff Complete? YES; Monocytes 7 % (0-10); Neutrophil 78 % (42-75); Platelet Morphology Comment Appears Adequate; Toxic Granulation SLIGHT
[2019-06-28] MEDS ORDERED: Fentanyl 100 MCG/2 ML VIAL ONE (06:35)
[2019-06-28] MEDS ORDERED: cefTRIAXone\\ROCEPHIN 1 GM VIAL ONE (06:40)
[2019-06-28] MEDS ORDERED: Potassium Chloride 10 MEQ in Premix Bag 1 BAG IVPB SCH (07:30)
[2019-06-28 07:49] VITALS: BMI 30.7
--- NOTE | 2019-06-28 08:43 | RAD ---
Portable frontal chest radiograph: 06/28/2019 COMPARISON: 06/25/2019 HISTORY: Shortness of breath FINDINGS: Heart and mediastinal contours are stable. Mild increased linear density in the medial left lung base noted suggesting mild volume loss. No lobar consolidation or alveolar edema. Old left-sided rib fractures are present IMPRESSION: No acute findings.
[2019-06-28] MEDS: Sodium Chloride 0.9% 1,000 ML IV SCH ×2 (09:38→20:25)
--- NOTE | 2019-06-28 09:42 | CT ---
PRELIMINARY REPORT/[facility]/EMERGENCY AFTER HOURS PROCEDURE: PROCEDURE INFORMATION: Exam: CT Abdomen And Pelvis Without Contrast Exam date and time: 06/28/2019 5:32 AM Clinical history: 54 years old, male; Abdominal pain; Generalized; Patient HX: 54m presents for evalu ation of shortness of breath which has been ongoing since he left the hospital this past Sunday ag ainst medical advice. PT says he feels like there is excess fluid on his body. Was admitted to [facility] last week for pancreatitis and says he became scared and left because he couldn't br eathe TECHNIQUE: Imaging protocol: Computed tomography of the abdomen and pelvis without contrast. COMPARISON: No relevant prior studies available. FINDINGS: Lungs: Dependent subsegmental pulmonary atelectasis. Liver: Normal. No mass. Gallbladder and bile ducts: Normal. No calcified stones. No ductal dilation. Pancreas: Swollen pancreas with peripancreatic fluid and stranding. Spleen: Small amount of perisplenic fluid and calcification. Adrenals: Normal. No mass. Kidneys and ureters: Normal. No hydronephrosis. Stomach and bowel: Area of fluid below the stomach measures 13 cm. Focal thickening of the mid ascend ing colon, recommend GI followup to exclude mucosal neoplasm. Appendix: No evidence of appendicitis. Intraperitoneal space: Fluid in the paracolic gutters. Diffuse omental and mesenteric mild nodularity and stranding. Nodularity within the omentum and mesentery, uncertain if it is secondary to pancreati tis, or could represent peritoneal carcinomatosis, recommend followup. Vasculature: Unremarkable. No abdominal aortic aneurysm. Lymph nodes: Unremarkable. No enlarged lymph nodes. Bladder: Unremarkable as visualized. Reproductive: Prostate calcification. Bones/joints: Unremarkable. No acute fracture. Soft tissues: Right inguinal fat protruding hernia. Right inguinal fat protruding hernia. Small left inguinal hernia. Small fat protruding umbilical hernia. IMPRESSION: 1. Acute pancreatitis with inflammatory changes, free fluid, and loculated areas of fluid. 2. Swollen pancreas with peripancreatic fluid and stranding. Area of fluid below the stomach measures 13 cm. Fluid in the paracolic gutters. 3. Nodularity within the omentum and mesentery, uncertain if it is secondary to pancreatitis, or coul d represent peritoneal carcinomatosis, recommend followup. 4. Focal thickening of the mid ascending colon, recommend GI followup to exclude mucosal neoplasm. Thank you for allowing us to participate in the care of your patient. Dictated and Authenticated by: Dillon Watts MD 06/28/2019 6:19 AM Central Time ([place] & [place]) FINAL REPORT CT ABDOMEN AND PELVIS WITHOUT CONTRAST: I agree with the preliminary report given by [place]. The fluid collection is larger compared to the exam of 06/22/19. POS: [facility]
[2019-06-28] MEDS ORDERED: Ondansetron ODT 4 MG TAB PO PRN (09:53)
[2019-06-28] MEDS ORDERED: HYDROcodone/Acetaminophen 5/325 mg Tablet PO PRN (09:53)
[2019-06-28] MEDS ORDERED: HYDROcodone/Acetaminophen 7.5/325 mg Tablet PO PRN (09:53)
[2019-06-28] MEDS ORDERED: Ondansetron PF 4 MG/2 ML Vial IVP PRN (09:53)
[2019-06-28] MEDS ORDERED: Morphine 2 MG/ML SYRINGE SLOW IVP PRN (09:56)
[2019-06-28] MEDS ORDERED: Labetalol HCl 100 MG/20 ML VIAL SLOW IVP PRN (09:56)
[2019-06-28] MEDS ORDERED: diphenhydrAMINE 25 MG CAP PO PRN (09:56)
[2019-06-28] MEDS ORDERED: cefTRIAXone\\ROCEPHIN 2 GM in Sodium Chloride 0.9% 100 ML IVPB SCH (10:00)
[2019-06-28] MEDS ORDERED: Benzonatate 100 MG CAP PO PRN (10:00)
[2019-06-28] MEDS ORDERED: traMADol HCl 50 MG TAB PO PRN (10:29)
[2019-06-28] MEDS ORDERED: Nadolol 40 MG TAB PO SCH (11:00)
[2019-06-28] MEDS: hydrOXYzine 25 MG TAB PO PRN ×2 (11:11→20:25)
[2019-06-28] MEDS: Heparin 5,000 UNITS/ML VIAL SC SCH ×2 (15:03→20:25)
--- NOTE | 2019-06-28 15:26 | PDOC.HHP ---
Hospitalist HPI - History of Present Illness Abdominal distention and shortness of breath History of Present Illness: 54-year-old gentleman with past medical history of heavy alcohol abuse who has quit roughly one week ago presents with worsening abdominal distention and shortness of breath. Patient was recently admitted to [facility] for complications of alcohol use including acute renal failure and pancreatitis. Patient had maximal medical therapy from intensive care unit physician, nephrology, and internal medicine physician before he decided he was going to leave against medical advice. Patient on prior visit did have renal failure with creatinine as high as six, however this normalized with maximal medical therapy. Since patient left against medical advice he has been trying to stay hydrated and been drinking Gatorade and Pedialyte. Patient states that he has not had even a drop of alcohol since his last admission. Patient denies nausea, vomiting, or diarrhea. Patient is having no abdominal pain. Patient denies any black or blood in stool. Patient was CT scan of the abdomen demonstrating acute pancreatitis in addition to ascites and other changes please see full report for details. Gastroenterology consultation requested for further recommendations. Extensive counseling was had with the patient on not leaving against medical advice on this admission and the critical nature of his condition with family at bedside. All questions answered in detail. Hospitalist ROS - Review of Systems All other systems reviewed; all pertinent +/- noted in HPI/Subj - Medication Medications: Active Medications Generic Name Dose Route Start Last Admin Trade Name Freq PRN Reason Stop Dose Admin Albuterol/Ipratropium 3 ml 06/28/19 11:00 06/28/19 14:20 Duoneb IPPB 3 ml [id number] ARCHIE Administration Heparin Sodium (Porcine) 5,000 units 06/28/19 15:00 06/28/19 15:03 Heparin SC 5,000 units TID ARCHIE Administration Hydroxyzine HCl 25 mg 06/28/19 10:27 06/28/19 11:11 Atarax PO 25 mg Q4HR PRN Administration Anxiety Sodium Chloride 1,000 mls @ 100 mls/hr 06/28/19 09:45 06/28/19 09:38 Normal Saline 0.9% IV 1,000 mls .Q10H ARCHIE Administration Sertraline HCl 25 mg 06/28/19 09:00 06/28/19 11:11 Zoloft PO 25 mg DAILY ARCHIE Administration Hospitalist History - Past Medical History Source: patient, family - Social History Smoking Status: Former smoker Tobacco Type: cigarettes Alcohol: reports: Heavy Drugs: reports: none Living Situation: With Family Domestic Violence: Negative Activity level: independent ambulation - Exam General Appearance: NAD, awake alert Eye: PERRL, anicteric sclera ENT: normocephalic atraumatic, moist mucosa Neck: supple, symmetric, no lymphadenopathy Heart: no murmur, no gallops, no rubs Heart - other findings: Rapid regular rate Respiratory: no rales, normal chest expansion, no tachypnea, rhonchi, wheezes Gastrointestinal: soft, non-distended, normal bowel sounds, no palpable masses, no guarding, no rigidity, distended Extremities: 1+ LE edema Skin: no lesions, no rashes Neurological: cranial nerve grossly intact, no focal deficits Musculoskeletal: normal strength, no muscle wasting Psychiatric: normal affect, A&O x 3 Hospitalist Results - Labs Result Diagrams: 06/28/19 05:14 06/28/19 05:14 Lab results: WBC 23.5 thou/uL (4.8-10.8) H 06/28/19 05:14 Hgb 13.6 g/dL (14.0-18.0) L 06/28/19 05:14 Hct 39.7 % (42.0-52.0) L 06/28/19 05:14 MCV 98.2 fL (78.0-98.0) H 06/28/19 05:14 Plt Count 330 thou/uL (130-400) 06/28/19 05:14 Band Neuts % (Manual) 7 % (5-11) 06/28/19 05:14 Sodium 134 mmol/L (136-145) L 06/28/19 05:14 Potassium 2.6 mmol/L (3.5-5.1) L* 06/28/19 05:14 Chloride 93 mmol/L (98-107) L 06/28/19 05:14 Carbon Dioxide 31 mmol/L (22-29) H 06/28/19 05:14 BUN 11 mg/dL (8.4-25.7) 06/28/19 05:14 Creatinine 0.88 mg/dL (0.7-1.3) 06/28/19 05:14 Glucose 115 mg/dL (70-105) H 06/28/19 05:14 Calcium 8.3 mg/dL (7.8-10.44) 06/28/19 05:14 Total Bilirubin 1.3 mg/dL (0.2-1.2) H 06/28/19 05:14 AST 23 U/L (5-34) 06/28/19 05:14 ALT 17 U/L (8-55) 06/28/19 05:14 Alkaline Phosphatase 114 U/L (40-110) H 06/28/19 05:14 B-Natriuretic Peptide 58.3 pg/mL (0-100) 06/28/19 05:14 Serum Total Protein 7.2 g/dL (6.0-8.3) 06/28/19 05:14 Albumin 3.1 g/dL (3.5-5.0) L 06/28/19 05:14 Lipase 9 U/L (8-78) 06/28/19 05:14 - Radiology Interpretation CT scan - abdomen Status: image reviewed by wa Hospitalist H&P A/P - Problem (1) Alcoholism Code(s): F10.20 - ALCOHOL DEPENDENCE, UNCOMPLICATED Status: Acute (2) Spontaneous bacterial peritonitis Code(s): K65.2 - SPONTANEOUS BACTERIAL PERITONITIS Status: Acute (3) Sepsis Code(s): A41.9 - SEPSIS, UNSPECIFIED ORGANISM Status: Acute (4) Tachycardia Code(s): R00.0 - TACHYCARDIA, UNSPECIFIED Status: Acute (5) Abdominal distension Code(s): R14.0 - ABDOMINAL DISTENSION (GASEOUS) Status: Acute (6) Acute pancreatitis Code(s): K85.90 - ACUTE PANCREATITIS WITHOUT NECROSIS OR INFECTION, UNSP Status: Acute - Plan Plan: Plan: Admit to medical unit Gastroenterology consultation, recommendations appreciated GI related: -IV third-generation cephalosporin for coverage for spontaneous bacterial peritonitis and community acquired pneumonia -patient with ascites, consider paracentesis per GI - would be diagnostic and therapeutic -start nonspecific beta mitch nadolol to decrease portal hypertension -patient will need diuretic therapy with a combination of Lasix and spironolactone for volume overload, though he has acute pancreatitis now and IV fluids started -with acute pancreatitis continue IV fluids at this time -NPO except for medications -No N,V -No black/ blood in stool Pulmonary related: -sepsis with elevation in WBC count and tachycardia -Small-volume nebulizers scheduled and as needed for shortness of breath -acute respiratory failure requiring supplemental oxygen for hypoxia Psychiatric/ neurologic related: -patient has not had a drink of alcohol in greater than seven days and is no longer at risk for alcohol withdrawal complications -patient does endorse significant anxiety and self medicated with alcohol, will start medications -start Zoloft for long control of anxiety -start hydroxyzine for short acting control of anxiety
[2019-06-28] MEDS: Melatonin 3 MG TAB PO PRN (20:25)
[2019-06-29] MEDS: Sodium Chloride 0.9% 1,000 ML IV SCH (04:09)
[2019-06-29 05:55] LABS: #Eosinphils 0.1 thou/uL (0.0-0.7); #Lymphocytes 1.2 thou/uL (1.20-3.40); #Monocytes 1.2 thou/uL (0.11-0.59); #Neutrophils 14.7 thou/uL (1.40-6.50); %Basophils 0.1 % (0.0-1.0); %Eosinophils 0.5 % (0.0-10.0); %Lymphocytes 6.7 % (21.0-51.0); %Monocytes 6.9 % (0.0-10.0); %Neutrophils 85.8 % (42.0-75.0); Hemoglobin 12.2 g/dL (14.0-18.0); Mean Corpuscular HGB CONC 32.1 g/dL (32.0-36.0); Mean Corpuscular Hemoglobin 31.7 pg (27.0-31.0); Mean Corpuscular Volume 98.8 fL (78.0-98.0); Mean Platelet Volume 6.5 fL (7.4-10.4); Platelet Count 425 thou/uL (130-400); RBC Distribution Width 12.5 % (11.5-14.5); Red Blood Cell (RBC) Count 3.85 mill/uL (4.70-6.10); White Blood Cell (WBC) Count 17.2 thou/uL (4.8-10.8)
[2019-06-29] MEDS: Nadolol 40 MG TAB PO SCH (08:44)
[2019-06-29] MEDS: Heparin 5,000 UNITS/ML VIAL SC SCH ×3 (08:44→21:02)
[2019-06-29] MEDS: Pantoprazole 40 MG GRANULES PACKET PO SCH (08:44)
[2019-06-29] MEDS: cefTRIAXone\\ROCEPHIN 2 GM in Sodium Chloride 0.9% 100 ML IVPB SCH (09:32)
--- NOTE | 2019-06-29 10:10 | PRG ---
DATE OF SERVICE: 06/29/2019 SUBJECTIVE: This is a 54-year-old male with alcohol abuse, pancreatitis. The patient hospitalized because of abdominal distention and tightness and difficulty breathing. He did have some wheezing on physical exam yesterday. He is undergoing treatment. He is on clear liquid diet. He is doing well on clear liquid diet. No abdominal pain. No difficulty breathing. No nausea. No vomiting. PHYSICAL EXAMINATION: GENERAL: Appears very comfortable, in no acute distress. VITAL SIGNS: He is afebrile. Pulse is 95, blood pressure is 164/92. CARDIOVASCULAR: First and second heart sounds heard, normal. LUNGS: Clear to auscultation. ABDOMEN: Distended, but soft. Abdomen is nontender. He does have active bowel sounds. LABORATORY DATA: From today shows WBC dropping down to 17,200, hemoglobin 12.2, hematocrit 38, polymorphs 85, lymphocytes 6. IMPRESSION: 1. Pancreatitis, resolved. 2. Pancreatic cyst and fluid collection. 3. Hypertension. 4. Acid reflux. RECOMMENDATIONS: 1. Advance diet to a low-fat diet. 2. Correction of hypokalemia. 3. If he does well on low-fat diet, may consider discharge home hopefully tomorrow. Job ID: [id number]
[2019-06-29 12:17] LABS: Anion Gap 10 mmol/L (10-20); BUN (Urea Nitrogen) 13 mg/dL (8.4-25.7); Calc. Creatinine Clearance 135 mL/min (70-130); Calcium 8.6 mg/dL (7.8-10.44); Carbon Dioxide 29 mmol/L (22-29); Chloride 100 mmol/L (98-107); Estimated GFR-MDRD Greater than 90; Glucose 121 mg/dL (70-105); Potassium 3.4 mmol/L (3.5-5.1); Sodium 136 mmol/L (136-145)
--- NOTE | 2019-06-29 15:43 | PDOC.HOSPP ---
- Subjective Subjective: Seen and examined. Clinically improving. Tolerating diet. No abdominal pain, nausea, or vomiting. Patient's shortness of breath is significantly proved with breathing treatments and he is no longer wheezing and saturating well on room air. WBC down trending on antibiotics. Discuss case with Gastroenterology who recommended against endoscopic procedures and no paracentesis at this time. - Objective Vital Signs & Weight: Vital Signs (12 hours) Temp Pulse Resp BP Pulse Ox 06/29/19 11:40 98 F 83 16 144/79 H 96 06/29/19 10:28 76 16 97 06/29/19 08:45 96 06/29/19 08:38 98.1 F 95 16 164/92 H 96 06/29/19 07:22 98.1 F 95 16 164/92 H 96 06/29/19 06:59 81 16 97 06/29/19 04:09 98.5 F 92 18 163/93 H 95 Weight Weight 220 lb 1.6 oz I&O: 06/28/19 06/29/19 06/30/19 06:59 06:59 06:59 Intake Total 3050 Balance 3050 Result Diagrams: 06/29/19 05:22 06/29/19 11:46 Hospitalist ROS - Review of Systems All other systems reviewed; all pertinent +/- noted in HPI/Subj - Medication Medications: Active Medications Generic Name Dose Route Start Last Admin Trade Name Freq PRN Reason Stop Dose Admin Heparin Sodium (Porcine) 5,000 units 06/28/19 15:00 06/29/19 08:44 Heparin SC 5,000 units TID ARCHIE Administration Hydroxyzine HCl 25 mg 06/28/19 10:27 06/28/19 20:25 Atarax PO 25 mg Q4HR PRN Administration Anxiety Ceftriaxone Sodium 2 gm/ 100 mls @ 0 mls/hr 06/29/19 10:00 06/29/19 09:32 Sodium Chloride IVPB 100 mls Q24HR ARCHIE Administration Melatonin 3 mg 06/28/19 09:56 06/28/19 20:25 Melatonin PO 3 mg HS PRN Administration Insomnia Nadolol 40 mg 06/29/19 09:00 06/29/19 08:44 Corgard PO 40 mg DAILY ARCHIE Administration Pantoprazole Sodium 40 mg 06/29/19 09:00 06/29/19 08:44 Protonix PO 40 mg DAILY ARCHIE Administration Sertraline HCl 25 mg 06/28/19 09:00 06/29/19 08:44 Zoloft PO 25 mg DAILY ARCHIE Administration - Exam General Appearance: NAD, awake alert Eye: PERRL ENT: normocephalic atraumatic, moist mucosa Neck: supple, symmetric, no lymphadenopathy Heart: RRR, no murmur, no gallops, no rubs Respiratory: CTAB, no wheezes, no rales, no ronchi Gastrointestinal: soft, non-tender, non-distended, no guarding, no rigidity Extremities: 1+ LE edema Skin: no lesions, no rashes Neurological: cranial nerve grossly intact, no weakness Musculoskeletal: no muscle wasting Psychiatric: normal affect, A&O x 3 Hosp A/P (1) Alcoholism Code(s): F10.20 - ALCOHOL DEPENDENCE, UNCOMPLICATED Status: Acute (2) Spontaneous bacterial peritonitis Code(s): K65.2 - SPONTANEOUS BACTERIAL PERITONITIS Status: Acute (3) Sepsis Code(s): A41.9 - SEPSIS, UNSPECIFIED ORGANISM Status: Acute (4) Tachycardia Code(s): R00.0 - TACHYCARDIA, UNSPECIFIED Status: Acute (5) Abdominal distension Code(s): R14.0 - ABDOMINAL DISTENSION (GASEOUS) Status: Acute (6) Acute pancreatitis Code(s): K85.90 - ACUTE PANCREATITIS WITHOUT NECROSIS OR INFECTION, UNSP Status: Acute - Plan Plan: Medical unit with telemetry gastroenterology consultation, recommendations appreciated G.I. related: - continue IV third-generation cephalosporin for coverage of spontaneous bacterial peritonitis and pneumonia - WBC down trending from 23k to 17k on Ceftriaxone - patient with ascites, consider paracentesis per G.I. would be both diagnostic and therapeutic gastroenterology recommending against paracentesis at this time - start diuretic therapy with combination of Lasix and spironolactone - nonspecific beta mitch nadolol to decrease portal hypertension, ascites with significant distention - low-fat diet - no black/blood in stool pulmonary related: - sepsis with elevation in WBC count tachycardia - continue small-volume nebulizers scheduled and as needed for shortness of breath - ceftriaxone will have coverage for pulmonary organisms, patient's wheezing has dramatically improved since admission. Psychiatric/neurologic related: - patient has not had a drink of alcohol greater than seven days and is no longer at risk for alcohol withdrawal complications - patient does endorse significant anxiety and self medicate with alcohol the past - continue Zoloft for long-acting anxiety control - continue hydroxyzine for short acting control of anxiety, having good affect
[2019-06-29] MEDS: hydrOXYzine 25 MG TAB PO PRN (21:00)
[2019-06-29] MEDS: Melatonin 3 MG TAB PO PRN (21:01)
[2019-06-30 06:35] LABS: Hemoglobin 11.5 g/dL (14.0-18.0); Mean Corpuscular HGB CONC 32.2 g/dL (32.0-36.0); Mean Corpuscular Hemoglobin 31.6 pg (27.0-31.0); Mean Platelet Volume 6.4 fL (7.4-10.4); Platelet Count 446 thou/uL (130-400); RBC Distribution Width 12.4 % (11.5-14.5); Red Blood Cell (RBC) Count 3.65 mill/uL (4.70-6.10); White Blood Cell (WBC) Count 16.2 thou/uL (4.8-10.8)
[2019-06-30 07:29] LABS: Band 8 % (5-11); Eosinophils 1 % (0-10); Lymphocytes 6 % (21-51); MDiff Complete? YES; Monocytes 5 % (0-10); Neutrophil 78 % (42-75); Platelet Morphology Comment Appears Increased; Polychromasia SLIGHT = 2-3 cells (100X) (0-2/hpf); Promyelocytes 1 % (0-0)
[2019-06-30] MEDS: Nadolol 40 MG TAB PO SCH (08:01)
[2019-06-30] MEDS: Furosemide 40 MG TAB PO SCH (08:01)
[2019-06-30] MEDS: cefTRIAXone\\ROCEPHIN 2 GM in Sodium Chloride 0.9% 100 ML IVPB SCH (08:02)
[2019-06-30] MEDS: Heparin 5,000 UNITS/ML VIAL SC SCH ×3 (08:02→20:29)
[2019-06-30] MEDS: Spironolactone 25 MG TAB PO SCH (08:02)
[2019-06-30] MEDS: Pantoprazole 40 MG GRANULES PACKET PO SCH (08:02)
[2019-06-30] MEDS ORDERED: Nadolol 40 MG TAB PO SCH ×2 (09:00→09:30)
--- NOTE | 2019-06-30 09:03 | CON ---
DATE OF CONSULTATION: 06/28/2019 REASON FOR CONSULTATION: Abdominal bloating, abdominal swelling, and also history of pancreatitis. HISTORY OF PRESENT ILLNESS: Mr. Jersey Herbert is a very pleasant 54-year-old male with past history of pancreatitis due to alcohol abuse. The patient was hospitalized here in 2017 with abdominal pain, nausea, vomiting, and was found to have evidence of pancreatitis. He had abdominal CAT scan done at that time. This revealed a inflammation and some free fluid in the belly. He was treated with antibiotics, IV fluids, and at that time. The patient drinks alcohol heavily. He was drinking one 6-pack of beer every day and also few shots of vodka. The patient tells me he stopped drinking 6 months after the last episode of pancreatitis in 2017. Then, he started drinking back again. The patient had no problem until probably a week ago. He developed severe diarrhea, multiple watery stools, and he felt dehydrated. He came to [facility] and was given IV fluids. He had lab tests done at that time, his lytes were slightly elevated. However, he tells me he had no abdominal pain whatsoever. The patient , started having some abdominal bloating, and distention and thought the bloating got somewhat better. At rest, he has no problem. When he starts to move around, he starts feeling short of breath. Because of the above reason, he came back to the hospital and hospitalized. The patient has been taking full liquid diet over the last several days. He had no nausea. No vomiting. No complaints of fever. The patient's diarrhea has resolved at the present time. Bowel movements are back to normal. At the time of the consultation, appears very comfortable, in no acute distress. He is not short winded. He states he feels hungry and he will like to eat. No relevant history. MEDICAL ILLNESSES: 1. Hypertension. 2. Chronic acid reflux. 3. Alcohol abuse. 4. History of pancreatitis in 2017. 5. Colonoscopy and polypectomy by Dr. Tj Roberts in 2017. Two rectal polyps. SURGERIES: 1. Left lower extremity fracture surgery. 2. Colonoscopy with polypectomy. MEDICATIONS LIST: Reviewed. FAMILY HISTORY: Maternal uncle had colon cancer. There is strong family history of hypertension, heart disease on the mother's side. SOCIAL HISTORY: The patient quit smoking more than 20 years ago. He drinks alcohol one 6-pack of beer every day. Also couple of shots of vodka. No history of drug abuse. ALLERGIES: NONE. SYSTEM REVIEW: 10-point system reviewed. CONSTITUTIONAL: No history of any fever. No weight loss. Has good energy level. HEENT: Head; no chronic headache. No dizziness. Eyes; no impaired vision or diplopia. Ears; no bleeding, discharge, pain. Nose; no nose bleeding. Throat; no sore throat. No dysphagia. NECK: No stiffness or limitation. LUNGS: He is feeling short winded because of abdominal bloating, and distention. CARDIOVASCULAR SYSTEM: No chest pain. No palpitation, but did have mild dyspnea. No orthopnea or PND. GI: No abdominal pain. No nausea or vomiting. Diarrhea positive 10 days ago, but now the stool was back to normal. abdominal bloating, distention. : No dysuria, hematuria, or frequency of urination. MUSCULOSKELETAL: Unremarkable. NEUROLOGIC: Unremarkable. ENDOCRINE: Unremarkable. HEMATOLOGICAL: Unremarkable. NEUROPSYCHIATRY: Unremarkable. PHYSICAL EXAMINATION: GENERAL: The patient appears very comfortable, in no distress. He is not short winded. Denies abdominal pain. VITAL SIGNS: Very stable. Afebrile, pulse is 90, blood pressure 151/88. HEENT: Conjunctivae clear. NECK: Supple. No adenitis or thyromegaly noted. CARDIOVASCULAR SYSTEM: First and second heart sounds heard. LUNGS: Clear to auscultation. ABDOMEN: Distended, but soft to palpate. Abdomen is actually nontender. Still he has fullness over the abdomen diffusely. There is no rebound or guarding. No organomegaly. Bowel sounds normal. EXTREMITIES: Reveal no edema. LABORATORY DATA: WBC 23,500, hemoglobin is 13.6, hematocrit 39.7, MCV 98.2, platelet count 330,000, polymorphs 78, bands 11, lymphocytes 8. Has normal chemistry panel except low potassium level of 2.6, BUN is 11, creatinine 0.88, glucose is 115, calcium 8.3, bilirubin 1.3, AST 23, ALT 17, alkaline phosphatase 114, albumin 3.1. An abdominal CAT scan done shows peripancreatic edema and fat stranding and also what appears to be large fluid collection, possible pseudocyst. There is also free fluid. CLINICAL IMPRESSION: 1. Pancreatitis completely resolved as his lipase is actually back to normal. 2. Pancreatic fluid collection - cirrhosis causing dyspnea. He also has some wheezing on physical exam. 3. Hypokalemia needs to be addressed. 4. Hypertension. 5. Chronic acid reflux. 6. Past history of pancreatitis. RECOMMENDATION: 1. Clear liquid diet. 2. Potassium supplement. 3. Follow up labs. His diet could be a liquid diet, advance diet to a low-fiber diet hopefully tomorrow. If he does well, hopefully can get to go home. His blood pressure was back to normal. Job ID: [id number]
[2019-06-30] MEDS ORDERED: Temazepam 15 MG CAP PO PRN (14:25)
--- NOTE | 2019-06-30 14:26 | PDOC.HOSPP ---
- Subjective Subjective: Seen and examined. Blood pressure still not controlled. White blood cell count down trending though not normalized. He is feeling well. He does get short of breath at rest and with ambulation, though improved since admission. Patient's abdomen is still very distended, though he does not say to this tender he has not been vomiting and he is not nauseous. - Objective Vital Signs & Weight: Vital Signs (12 hours) Temp Pulse Resp BP BP Pulse Ox 06/30/19 12:50 18 06/30/19 12:47 97.8 F 81 24 H 145/87 H 94 L 06/30/19 10:22 134/86 06/30/19 08:00 99 18 160/87 H 96 06/30/19 07:45 98.3 F 99 20 174/97 H 97 Weight Weight 220 lb 1.6 oz I&O: 06/29/19 06/30/19 07/01/19 06:59 06:59 06:59 Intake Total 3050 1500 Balance 3050 1500 Result Diagrams: 06/30/19 06:09 06/29/19 11:46 Hospitalist ROS - Review of Systems All other systems reviewed; all pertinent +/- noted in HPI/Subj - Medication Medications: Active Medications Generic Name Dose Route Start Last Admin Trade Name Freq PRN Reason Stop Dose Admin Albuterol/Ipratropium 3 ml 06/29/19 19:00 06/30/19 12:41 Duoneb IPPB Not Given [id number] ARCHIE Furosemide 40 mg 06/30/19 07:30 06/30/19 08:01 Lasix PO 40 mg DAILY-AC ARCHIE Administration Heparin Sodium (Porcine) 5,000 units 06/28/19 15:00 06/30/19 08:02 Heparin SC 5,000 units TID ARCHIE Administration Hydroxyzine HCl 25 mg 06/28/19 10:27 06/29/19 21:00 Atarax PO 25 mg Q4HR PRN Administration Anxiety Ceftriaxone Sodium 2 gm/ 100 mls @ 0 mls/hr 06/29/19 10:00 06/30/19 08:02 Sodium Chloride IVPB 100 mls Q24HR ARCHIE Administration Melatonin 3 mg 06/28/19 09:56 06/29/19 21:01 Melatonin PO 3 mg HS PRN Administration Insomnia Pantoprazole Sodium 40 mg 06/29/19 09:00 06/30/19 08:02 Protonix PO 40 mg DAILY ARCHIE Administration Sertraline HCl 25 mg 06/28/19 09:00 06/30/19 08:01 Zoloft PO 25 mg DAILY ARCHIE Administration Spironolactone 25 mg 06/30/19 08:00 06/30/19 08:02 Aldactone PO 25 mg QAM-WM ARCHIE Administration - Exam General Appearance: NAD, awake alert Eye: anicteric sclera ENT: normocephalic atraumatic, moist mucosa Neck: supple, symmetric, no lymphadenopathy Heart: no murmur, no gallops, no rubs Heart - other findings: Rapid regular rate Respiratory: no rales, no ronchi, normal chest expansion, wheezes Gastrointestinal: soft, non-tender, normal bowel sounds, no guarding, no rigidity, distended Extremities: 1+ LE edema Skin: no lesions, no rashes Neurological: cranial nerve grossly intact, no weakness Musculoskeletal: normal tone, normal strength Psychiatric: normal affect, A&O x 3 Hosp A/P (1) Alcoholism Code(s): F10.20 - ALCOHOL DEPENDENCE, UNCOMPLICATED Status: Acute (2) Spontaneous bacterial peritonitis Code(s): K65.2 - SPONTANEOUS BACTERIAL PERITONITIS Status: Acute (3) Sepsis Code(s): A41.9 - SEPSIS, UNSPECIFIED ORGANISM Status: Acute (4) Tachycardia Code(s): R00.0 - TACHYCARDIA, UNSPECIFIED Status: Acute (5) Abdominal distension Code(s): R14.0 - ABDOMINAL DISTENSION (GASEOUS) Status: Acute (6) Acute pancreatitis Code(s): K85.90 - ACUTE PANCREATITIS WITHOUT NECROSIS OR INFECTION, UNSP Status: Acute - Plan Plan: Medical unit with telemetry gastroenterology consultation, recommendations appreciated G.I. related: - continue IV third-generation cephalosporin for coverage of spontaneous bacterial peritonitis and pneumonia - WBC down trending from 23k -> 17k -> 16k on Ceftriaxone - patient with ascites, consider paracentesis per G.I. would be both diagnostic and therapeutic. gastroenterology recommending against paracentesis at this time - Continue diuretic therapy with combination of Lasix and spironolactone - Increase nonspecific beta mitch nadolol to decrease portal hypertension, ascites with significant distention - BP not controlled - low-fat diet - no black/blood in stool pulmonary related: - sepsis with elevation in WBC count tachycardia - continue small-volume nebulizers scheduled and as needed for shortness of breath - ceftriaxone will have coverage for pulmonary organisms, patient's wheezing improved since admission. Psychiatric/neurologic related: - patient has not had a drink of alcohol greater than seven days and is no longer at risk for alcohol withdrawal complications - patient does endorse significant anxiety and self medicate with alcohol the past - continue Zoloft for long-acting anxiety control, increase dose - continue hydroxyzine for short acting control of anxiety, having good affect - Add Temazepam for insomnia
[2019-06-30] MEDS: Docusate 100 MG CAP PO PRN ×2 (15:08→20:31)
[2019-06-30] MEDS: hydrOXYzine 25 MG TAB PO PRN (20:29)
[2019-07-01 05:27] LABS: #Basophils 0.1 thou/uL (0.0-0.2); #Eosinphils 0.1 thou/uL (0.0-0.7); #Lymphocytes 1.4 thou/uL (1.20-3.40); #Monocytes 1.5 thou/uL (0.11-0.59); #Neutrophils 14.3 thou/uL (1.40-6.50); %Basophils 0.3 % (0.0-1.0); %Eosinophils 0.5 % (0.0-10.0); %Lymphocytes 7.9 % (21.0-51.0); %Monocytes 8.6 % (0.0-10.0); %Neutrophils 82.7 % (42.0-75.0); Hemoglobin 11.7 g/dL (14.0-18.0); Mean Corpuscular HGB CONC 32.4 g/dL (32.0-36.0); Mean Corpuscular Volume 98.8 fL (78.0-98.0); Mean Platelet Volume 6.4 fL (7.4-10.4); Platelet Count 517 thou/uL (130-400); RBC Distribution Width 12.3 % (11.5-14.5); Red Blood Cell (RBC) Count 3.65 mill/uL (4.70-6.10); White Blood Cell (WBC) Count 17.3 thou/uL (4.8-10.8)
[2019-07-01 05:54] LABS: Anion Gap 11 mmol/L (10-20); BUN (Urea Nitrogen) 14 mg/dL (8.4-25.7); Calc. Creatinine Clearance 147 mL/min (70-130); Calcium 8.7 mg/dL (7.8-10.44); Carbon Dioxide 29 mmol/L (22-29); Chloride 100 mmol/L (98-107); Estimated GFR-MDRD Greater than 90; Glucose 93 mg/dL (70-105); Potassium 3.3 mmol/L (3.5-5.1); Sodium 137 mmol/L (136-145)
[2019-07-01] MEDS: Heparin 5,000 UNITS/ML VIAL SC SCH (08:17)
[2019-07-01] MEDS: Pantoprazole 40 MG GRANULES PACKET PO SCH (08:17)
[2019-07-01] MEDS: Furosemide 40 MG TAB PO SCH (08:18)
[2019-07-01] MEDS: Spironolactone 25 MG TAB PO SCH (08:18)
[2019-07-01] MEDS: Docusate 100 MG CAP PO PRN (08:28)
[2019-07-01] MEDS ORDERED: Nadolol 40 MG TAB PO SCH (09:00)
[2019-07-01] MEDS: cefTRIAXone\\ROCEPHIN 2 GM in Sodium Chloride 0.9% 100 ML IVPB SCH (10:03)
[2019-07-01] MEDS ORDERED: Glycerin Adult Supp. (12 ct jar) PR SCH (10:15)
[2019-07-01] MEDS ORDERED: Polyethylene Glycol 3350 17 GM Packet PO SCH (10:15)
[2019-07-01 11:26] VITALS: BP 157/93; TEMP 98.1
--- NOTE | 2019-07-02 03:24 | DIS ---
DATE OF ADMISSION: 06/28/2019 DATE OF DISCHARGE: 07/01/2019 REASON FOR HOSPITALIZATION: Abdominal distention. SIGNIFICANT FINDINGS: The patient found to have acute on chronic pancreatitis with abdominal distention in addition to sepsis. PROCEDURES PERFORMED/TREATMENTS RENDERED: The patient was admitted to medical unit. He was seen and evaluated by Gastroenterology and his diet was advanced with his pancreatitis. The patient had IV fluid resuscitation and was recommended no further inpatient workup by Gastroenterology. The patient had starting of antibiotic therapy and diuretic therapy to aid in abdominal distention. CONDITION ON DISCHARGE: Stable. SPECIFIC INSTRUCTIONS FOR THE PATIENT/FAMILY: 1. The patient is recommended to take all medications as directed, to be re-evaluated by primary care physician and Gastroenterology in the next 1 to 2 weeks. 2. The patient is recommended to follow up with primary care physician in the next 5 to 7 days. 3. The patient is recommended to follow up with Gastroenterology in the next 1 to 2 weeks. 4. The patient is recommended to have blood work including a CBC and a basic metabolic panel in the next 1 week by his primary care physician. 5. The patient is recommended to return to acute care hospital if he has any of the following symptoms or any new symptoms: Worsening abdominal pain, abdominal distention, diarrhea, fever, chills, shortness of breath, or any other new symptoms. DISCHARGE MEDICATIONS: 1. Atarax 25 mg one tablet p.o. q.4 hours p.r.n. anxiety. 2. Spironolactone 25 mg one tablet p.o. daily. 3. Sertraline 50 mg one tablet p.o. daily. 4. Protonix 40 mg one tablet p.o. daily. 5. Nadolol 80 mg one tablet p.o. daily. 6. Furosemide 40 mg one tablet p.o. daily. 7. Docusate 100 mg one tablet p.o. b.i.d. p.r.n. constipation. 8. Cefpodoxime 200 mg one tablet p.o. q.12 hours for an additional 7 days, 14 tablets. 9. Albuterol sulfate 2 puffs p.o. q.4 hours p.r.n. shortness of breath. HOSPITAL COURSE: Mr. Herbert is a very pleasant 54-year-old gentleman who presents to the [facility] 06/28/2019, with worsening abdominal distention. The patient was recently admitted to [facility] on 06/22/2019, with renal failure and he was found to have acute on chronic pancreatitis from alcoholism. Please see full admission H and P, discharge summary, and progress notes for details. The patient was recommended to stay and cooperate with his care; however, after maximum efforts by nursing staff, the patient could not be convinced to stay and participate with his care on the hospitalization. I went through extensive counseling and discussed with the patient not leaving against medical advice on this hospitalization and the patient was willing to stay and cooperate with care. The patient had aggressive IV fluid resuscitation on last admission and this resulted in his renal function stabilizing and normalizing. When I evaluated the patient on 06/28/2019, I requested gastroenterology consultation, please see full consultation and progress notes for details. Gastroenterology recommended no further acute inpatient workup or treatment and they recommended against endoscopic procedures and abdominal paracentesis for this patient. The patient with significant abdominal distention and CT scan and imaging suggestive of loculated pockets of fluid versus possible infection and the patient was started on 3rd generation cephalosporin for the possibility of spontaneous bacterial peritonitis by myself. The patient had improvement of his white blood cell count and downtrending from 23,000 down to a level of 17,000 on day of discharge. The patient is breathing well. He has been afebrile since admission. The patient was advanced on his diet by Gastroenterology and he tolerated this without complications. The patient has no abdominal pain. The patient's abdominal distention did not significantly change throughout his hospitalization and I started him on diuretic therapy. The patient was also started on nonspecific beta-mitch therapy to decrease portal hypertension. I explicitly went over the results of the patient's CAT scan with the patient and his and daughter in the room. I gave extra time for questions and all questions were answered in detail. I explicitly informed the patient and family that he must have further outpatient treatment by a edge worker. The patient with fluid accumulation around the pancreas that is possibility for pseudocyst versus infection will need to be monitored over time. The patient also with omental thickening with nodular appearance that is concerning for malignancy, I told the patient that this will need followup and he should have a CT scan of his abdomen performed at the discretion of Gastroenterology and primary care physician, but likely in the next 1 to 2 months. I also informed the patient that there is a focal thickening in the mid ascending colon and this may need to be further evaluated with direct visualization from endoscopy. The patient understands all of these conditions and he states that he will follow up with primary care physician and Gastroenterology in the outpatient setting. The patient tolerating diet, breathing well on room air and having been cleared for discharge by Gastroenterology was recommended safe for discharge with close followup in the outpatient setting. I sent the patient's medications to his preferred pharmacy to ensure compliance. I explicitly informed the patient to follow up with primary care physician and Gastroenterology in the next 1 to 2 weeks. I explicitly informed the patient that he must take all medications as directed, or return to acute care hospital immediately. If the patient is unable to be seen by primary care physician or Gastroenterology within the next 1 to 2 weeks, he is to return to acute care hospital immediately for re-evaluation. I explicitly informed the patient that if any new symptoms or original symptoms return including, but not limited to abdominal pain, abdominal distention, nausea, vomiting, diarrhea, shortness of breath, chest pain, or any other new symptoms, he is to return to acute care hospital immediately for re-evaluation. Greater than 45 minutes spent coordinating care and discharge process for this patient. Job ID: [id number]
== END 2019-07-01 14:32 | disposition home or self-care (01) | DRG 871 ==
LOC: ERS 04:48 → T4-A 07:44
PROVIDERS: ADMIT Internal Medicine; ATTEND Internal Medicine
DX: A41.9 Sepsis, unspecified organism (principal); K85.20 Alcohol induced acute pancreatitis without necrosis or infection; J96.01 Acute respiratory failure with hypoxia; K65.2 Spontaneous bacterial peritonitis; F10.288 Alcohol dependence with other alcohol-induced disorder; K86.2 Cyst of pancreas; R18.8 Other ascites; K86.0 Alcohol-induced chronic pancreatitis; K21.9 Gastro-esophageal reflux disease without esophagitis; I10 Essential (primary) hypertension; E87.6 Hypokalemia; Z87.891 Personal history of nicotine dependence; Z79.899 Other long term (current) drug therapy
CPT/HCPCS: 36415; 71045; 74176; 80048; 80053; 83690; 83880; 84443; 85025; 93005; 94640; J0696; J1644; J3010; J3480; J3490; J7620

== ENCOUNTER 2019-07-15 04:46 | Inpatient (IN) | payer BC ==
[2019-07-15 05:31] LABS: Hemoglobin 11.8 g/dL (14.0-18.0); Mean Corpuscular HGB CONC 33.3 g/dL (32.0-36.0); Mean Corpuscular Hemoglobin 31.9 pg (27.0-31.0); Mean Corpuscular Volume 95.9 fL (78.0-98.0); Mean Platelet Volume 5.6 fL (7.4-10.4); Platelet Count 744 thou/uL (130-400); RBC Distribution Width 12.8 % (11.5-14.5); White Blood Cell (WBC) Count 29.6 thou/uL (4.8-10.8)
[2019-07-15 05:49] LABS: ALT (SGPT) 19 U/L (8-55); AST (SGOT) 26 U/L (5-34); Albumin 3.3 g/dL (3.5-5.0); Alkaline Phosphatase 103 U/L (40-110); Anion Gap 17 mmol/L (10-20); BUN (Urea Nitrogen) 15 mg/dL (8.4-25.7); Bilirubin, Total 0.9 mg/dL (0.2-1.2); Calc. Creatinine Clearance 0 mL/min (70-130); Calcium 9.7 mg/dL (7.8-10.44); Carbon Dioxide 24 mmol/L (22-29); Chloride 98 mmol/L (98-107); Estimated GFR-MDRD 77; Globulin 5.4 g/dL (2.4-3.5); Glucose 120 mg/dL (70-105); Potassium 4.4 mmol/L (3.5-5.1); Protein, Total 8.7 g/dL (6.0-8.3); Sodium 135 mmol/L (136-145)
[2019-07-15 05:58] LABS: Band 7 % (5-11); Lymphocytes 4 % (21-51); MDiff Complete? YES; Monocytes 7 % (0-10); Neutrophil 82 % (42-75); Platelet Morphology Comment Appears Increased
[2019-07-15 07:40] LABS: Bilirubin Negative (Negative); Blood, Urine Negative (Negative); Clarity Clear (Clear); Glucose, Urine (Dipstick) Normal (Negative); Leukocyte Negative Leu/uL (Negative); Nitrite Negative (Negative); Protein, Urine (Dipstick) Negative (Neg-Trace); Urobilinogen Normal mg/dL (Less than 2)
[2019-07-15] MEDS ORDERED: Ondansetron PF 4 MG/2 ML Vial ONE (07:47)
[2019-07-15] MEDS ORDERED: Morphine 4 MG/ML VIAL ONE (07:47)
--- NOTE | 2019-07-15 08:11 | CT ---
PRELIMINARY REPORT/[facility]/EMERGENCY AFTER HOURS PROCEDURE: PROCEDURE INFORMATION: Exam: CT Abdomen And Pelvis With Contrast Exam date and time: 07/15/2019 6:07 AM Clinical history: 54 years old, male; Abdominal tenderness; Patient HX: [id number] presents to ED for left g roin pain. PT reports initially having constant diffuse abdominal pain that began after hospitalizati on for diverticulitis last month, resolved on Sunday. PT then woke suddenly Sunday night with pain, f elt like he pulled a groin muscle. Different pain than before. Reports pain has gotten progressively worse, migrated up and to left side, left testicle. Unable to walk now due to pain severity. No HX of similar SX, no HX of kidney stones or UTI. Denies n/v/d, pain or difficulty w urination, or any other complaints. Reports he has been drinking plenty of fluids TECHNIQUE: Imaging protocol: Computed tomography of the abdomen and pelvis with intravenous contrast. Radiation optimization: All CT scans at this facility use at least one of these dose optimization kris hniques: automated exposure control; mA and/or kV adjustment per patient size (includes targeted exam s where dose is matched to clinical indication); or iterative reconstruction. Contrast material: ISOVUE 370; Contrast volume: 100 ml; Contrast route: IV; COMPARISON: CT Abdomen Pelvis WO Con 06/28/2019 5:32 AM FINDINGS: Lungs: The visualized portions of the lung bases are normal. Liver: There is nonspecific hypoattenuation within the gallbladder fossa possibly fatty infiltration. Liver is otherwise unremarkable Gallbladder and bile ducts: The gallbladder is normal. There is no evidence of biliary ductal dilatio n. Pancreas: There is marked abdominal fluid collection anterior to the pancreas which measures at least 24 x 10 x 16 cm compatible with pancreatic pseudocyst which appears larger from prior. Given the nod ularity at the periphery mucinous mass is also a consideration. There appears to be compression of the subjacent pancreas which is increased from prior. Spleen: Fluid is seen surrounding the spleen which is somewhat lobulated. Adrenals: The adrenal glands are normal. Kidneys and ureters: The kidneys appear normal. No hydronephrosis. Stomach and bowel: Unremarkable. No obstruction. No mucosal thickening. Appendix: No evidence of appendicitis. Intraperitoneal space: See pancreas finding. Retroperitoneal space: There is hyperdense collection involving the LEFT iliopsoas muscle with surrou nding stranding which measures about 8.4 x 4.8 x 13 cm which is suspicious for retroperitoneal hemato ma. Vasculature: Unremarkable. No abdominal aortic aneurysm. Lymph nodes: Unremarkable. No enlarged lymph nodes. Bladder: Unremarkable as visualized. Reproductive: Unremarkable as visualized. Bones/joints: There are old healed fractures of the ninth and 10th posterior LEFT ribs. There is a melissa cency seen on the coronal views involving the lateral aspect of L5 vertebral body/transverse process which is probably unit support representative of a nutrient foramen and is stable from prior. Soft tissues: Fat-containing RIGHT inguinal hernia is noted. IMPRESSION: 1. Large pancreatic pseudocyst versus mucinous mass as above, increase from prior. 2. New LEFT iliopsoas retroperitoneal hematoma. COMMENT: THIS REPORT CONTAINS FINDINGS THAT MAY BE CRITICAL TO PATIENT CARE. The findings were verbally commun icated via telephone conference with Dr. Perry at 7:11 AM COMMUNICATION COORDINATOR on 07/15/2019. The findings were acknowledged and understood. Thank you for allowing us to participate in the care of your patient. Dictated and Authenticated by: Dillon Gan MD 07/15/2019 7:16 AM Central Time ([place] & [place]) FINAL REPORT EMERGENT AFTER HOURS CT OF THE ABDOMEN AND PELVIS WITH CONTRAST: FINDINGS/IMPRESSION: I agree with the findings given in the preliminary report per [facility] physician. However, I disagree w ith one of the impression comments. 1. There is a large fluid collection surrounding the pancreas which represents developing pseudocyst and phlegmonous change. 2. The preliminary report mentions an iliopsoas hematoma. I disagree with this impression. There i s enlargement of the left iliopsoas muscle, but this likely represents inflammatory change secondary to an inflammatory change surrounding the pancreas extending down towards the left iliopsoas muscle. POS: [facility]
[2019-07-15] MEDS ORDERED: cefTRIAXone\\ROCEPHIN 2 GM VIAL ONE (08:19)
[2019-07-15 08:46] LABS: INR-International Normal Ratio 1.3; PTT 35.3 SEC (22.9-36.1)
[2019-07-15 10:15] VITALS: BMI 27.6
[2019-07-15] MEDS ORDERED: Morphine 4 MG/ML VIAL SLOW IVP PRN (12:15)
[2019-07-15] MEDS ORDERED: Iopamidol-370 76% 500 ML 1 ML ONE (13:16)
[2019-07-15] MEDS ORDERED: Ondansetron PF 4 MG/2 ML Vial IVP PRN ×2 (14:03→14:15)
[2019-07-15] MEDS ORDERED: Ondansetron ODT 4 MG TAB SL PRN (14:15)
[2019-07-15] MEDS: Sodium Chloride 0.9% 1,000 ML IV SCH ×2 (15:09→19:40)
[2019-07-15] MEDS ORDERED: Heparin 1,000 UNITS/ML VIAL ONE (16:27)
--- NOTE | 2019-07-15 17:44 | CON ---
DATE OF CONSULTATION: 07/15/2019 CHIEF COMPLAINT: Pain in the left groin. HISTORY OF PRESENT ILLNESS: Mr. Herbert is a 54-year-old man, who was recently admitted on 06/22/2019 with severe acute pancreatitis complicated by hypocalcemia and acute tubular necrosis. He developed pancreatic fluid collection associated with that. He was discharged on 06/26 and then readmitted on 06/28 with ongoing recurrent pain and elevated white blood cell count. He was started on antibiotics and discharged with a course of cefpodoxime 200 mg q.12 hours for 7 days. He finished that course of antibiotics about a week ago. Two days ago, he had sudden onset of sharp pain in the left groin, left inner thigh around the left testicle in the left lower quadrant of his abdomen. Hard to walk. He ultimately came to the emergency room last night and had a CT scan of the abdomen and pelvis performed. This showed new inflammatory changes tracking down the iliopsoas muscles all the way down to the left hip. His white count was noted to be elevated at 29,000. He has had no nausea or vomiting. He has no abdominal pain above the level of his umbilicus. He does have early satiety and feels full after eating only a small amount. He has had no diarrhea or constipation or blood in the stool. No fever. PAST MEDICAL HISTORY: Recent severe acute alcoholic pancreatitis with past history of alcoholic pancreatitis prior to that. Recent acute tubular necrosis, which resolved. He has a history of hypertension and gastroesophageal reflux disease. PAST SURGICAL HISTORY: Colonoscopy and orthopedic surgery. SOCIAL HISTORY: He had a prior history of heavy alcohol abuse. He quit alcohol for quite some time and then started drinking again. Since his last hospitalization on 06/22/2019, he has had no alcohol. He quit smoking 20 years ago. No drugs. FAMILY HISTORY: Negative for GI malignancy. ALLERGIES: NO KNOWN DRUG ALLERGIES. MEDICATIONS: Prior to admission: 1. Spironolactone 25 mg daily. 2. Sertraline. 3. Pantoprazole 40 mg daily. 4. Atarax. 5. daily. 6. Furosemide 40 mg daily. 7. Docusate. 8. Albuterol. REVIEW OF SYSTEMS: Negative x10 systems reviewed, except as stated in the history of present illness. PHYSICAL EXAMINATION: VITAL SIGNS: Temperature 99.7, pulse 90, and blood pressure 121/84. GENERAL: He is in no acute distress. Alert and oriented x3. HEENT: Eyes have no scleral icterus. Oropharynx is clear without lesions. No cervical or supraclavicular lymphadenopathy. LUNGS: Clear to auscultation bilaterally. HEART: Regular rate and rhythm without murmur. ABDOMEN: Soft and nontender in the upper abdomen. He has significant tenderness in the left lower quadrant. Bowel sounds are present. EXTREMITIES: No lower extremity edema. LABORATORY DATA: White blood cell count 29.6, hemoglobin 11.8, platelets 744. INR 1.3. Creatinine 1.01. Bilirubin 0.9, AST 26, ALT 19, alkaline phosphatase 103, albumin 3.3, and lipase 11. IMPRESSION: 1. Recent acute severe pancreatitis complicated by renal failure and hypocalcemia secondary to alcohol abuse. This acute pancreatitis is since resolved, but he has had a progressively enlarging pseudocyst which is in the process of developing a , but is still only 3 to 4 weeks old and not ready for endoscopic cyst gastrostomy. He has symptoms from this with early satiety, but it is not causing pain for him. Eventually, this will need to be addressed with endoscopic ultrasound and likely cyst gastrostomy via EUS. The pseudocyst wall will have to mature for 4 to 6 weeks prior to that procedure being possible. 2. Inflammatory process of the iliopsoas muscle causing severe pain in the left groin and left lower quadrant, requiring IV morphine. This is really the primary issue for which he is admitted now. He has associated leukocytosis, which could indicate that this is an infectious process. It is also possible that this pseudocyst could be infected or he could have infected pancreatic necrosis that he does not appear septic and he appears very comfortable. He has no epigastric discomfort. Primarily, his only symptom is pain in the left groin and left lower quadrant. His white count is significantly elevated at 29,000. Primary treatment at this point will be antibiotics and allowing this process time to develop. I do not know that fine-needle aspiration would really change over at this point as he has already been on Zosyn and prior to that was on cephalosporin. If he starts showing significant signs of worsening infectious process, then radiologically guided FNA can be performed for purpose of culture from either the pancreatic pseudocyst or if this psoas process develops further, then that may also need to be sampled. I would be interested here in my opinion from Infectious Disease regarding this as well and Dr. Ortiz has been consulted. RECOMMENDATIONS: 1. Zosyn. 2. We will need to allow time for this pseudocyst to mature, so that he can be referred for endoscopic ultrasound and if this pseudocyst remains symptomatic, he will likely require cyst gastrostomy. 3. Infectious disease opinion. 4. Alcohol abstinence. Job ID: [id number]
--- NOTE | 2019-07-15 17:46 | HP ---
CHIEF COMPLAINT: Left groin pain. HISTORY OF PRESENT ILLNESS: The patient is a very pleasant 54-year-old male with past medical history of hypertension and pancreatitis x2, who presents to the hospital with complaints of left groin pain. The patient stated that on Sunday, he started noticing significant sudden onset pain to his left groin radiating to his left testicle. The patient denies any fevers or chills, however. The patient stated that his pain improved a little bit with some [id number] medications with Tylenol. Then, his pain improved from around his testicle and started trending upwards to his left inguinal area and left lower abdomen. The patient also states that he has been feeling very full and has been feeling early satiety. He has not been able to eat very much. He denies any nausea, vomiting, or diarrhea. He stated that, initially, he did have some loose stools, but that was because he was taking a stool softener, which he has stopped. He denies any recent significant weight loss. He states that he has been taking his diuretics. He denies any recent alcohol use either. His initial admission was in 06/22. He was in the ICU for pancreatitis. However, after getting out of the ICU, on the floor, the patient stated that he felt so swollen all over, just wanted to go home and take a break, so he actually left against medical advice, this was on 06/26. He came back to the hospital on 06/28 for pancreatitis and at this time, he was seen again by GI and was found to have leukocytosis and was treated with antibiotics on discharge. At that time, he did have a CT of abdomen and pelvis, which had mentioned that he did have acute pancreatitis with inflammatory changes and also a loculated area of fluid. This was mentioned during his previous pancreatitis. The patient states that he was supposed to follow up with GI on this coming up . PAST MEDICAL HISTORY: 1. GERD. 2. Hypertension. 3. Pancreatitis. PAST SURGICAL HISTORY: He has had a right rotator cuff repair and left lower extremity ankle repair. ALLERGIES: HE HAS NO KNOWN DRUG ALLERGIES. MEDICATIONS: He takes, 1. Pantoprazole 20 mg q.a.m. 2. Spironolactone 25 mg daily. 3. Nadolol 80 mg daily. 4. Lasix 40 mg daily. 5. daily. SOCIAL HISTORY: He was a former alcohol drinker, however, has not been drinking since his last admission, which was in June. No smoking history. No recreational drug use. He is a full code. Lives with his . REVIEW OF SYSTEMS: All negative except for the ones mentioned above in the HPI. PHYSICAL EXAMINATION: VITAL SIGNS: Temperature of 97.9, pulse 92, respiratory rate 20, oxygen saturation 96% on room air, and blood pressure 120/84. GENERAL: He is awake, alert, oriented x3, and does not appear in distress. HEENT: Normocephalic, atraumatic. No lymphadenopathy noted. Pupils equal and reactive to light. CV: S1 and S2 present. No murmurs, rubs, or gallops. ABDOMEN: Soft. Bowel sounds are present x2. He does have pain upon palpation to his left lower groin area. SKIN: No cuts, lesions, or bruises noted. : Left testicle does not appear to have any redness or pain upon palpation. NEUROVASCULAR: No focal deficits noted. LABORATORY RESULTS: WBCs of 29.6, hemoglobin of 11.8, hematocrit of 35.5, and platelets of 744. His chemistry; sodium of 135, potassium of 4.4, BUN of 15, creatinine of 1.01, glucose of 120, and lactic acid of 1.3. Lipase of 11. He did have a CT of abdomen and pelvis, which indicated a large fluid collection surrounding the pancreas, which representing developing pseudocyst and a phlegmonous change, also enlargement of the left iliopsoas, but this most likely is inflammatory changes due to the inflammatory changes around the pancreas, which is extending down toward the iliopsoas muscle. ASSESSMENT AND PLAN: The patient is a very pleasant 54-year-old male, who presents to the hospital with complaints of left inguinal pain. 1. Left inguinal pain, most likely from the pseudocyst with phlegmonous changes and also causing inflammatory changes to his iliopsoas muscle. I will get GI and also Infectious Disease. The patient does have a significant white count, however, he does not have any fevers or chills and his vitals have been stable. Blood cultures have been drawn. I will start him on prophylactic antibiotic. He did have a CAT scan done about a couple of weeks ago that did show that he did have a pseudocyst, however, this has currently increased in size and also the patient has a very profound leukocytosis. I also spoke with IR, however, given the organ of the pancreas, it is a little bit concerning if this needs to be aspirated versus conservative treatment, and I will wait for GI's input on this. 2. Leukocytosis, most likely secondary to his pseudocyst. We will continue to monitor. We will start antibiotics and watch him. 3. Recurrent pancreatitis. His lipase is normal, however, he does not have any abdominal pain or nausea or vomiting. He does feel full. 4. Early satiety. I did speak with Radiology, who stated that due to his pseudocyst which is pushing against his stomach, which most likely is causing him to have early satiety. 5. Hypertension. We will continue his home medications. 6. Deep venous thrombosis prophylaxis. We will put the patient on subcu heparin and/or SCDs. Job ID: [id number]
[2019-07-15] MEDS: Piperacillin/Tazobactam 3.375 GM in Sodium Chloride 0.9% 100 ML IVPB SCH ×2 (18:18→23:17)
[2019-07-15] MEDS: oxyCODONE 5 MG TAB PO PRN (18:24)
[2019-07-15] MEDS: Famotidine/PF 20 mg/2ml Vial SLOW IVP SCH (19:37)
[2019-07-15] MEDS: Morphine 4 MG/ML VIAL SLOW IVP PRN (23:22)
[2019-07-16] MEDS: Zolpidem Tartrate 5 MG TAB PO PRN (01:44)
[2019-07-16] MEDS: Piperacillin/Tazobactam 3.375 GM in Sodium Chloride 0.9% 100 ML IVPB SCH ×2 (05:51→12:31)
[2019-07-16 07:29] LABS: #Basophils 0.1 thou/uL (0.0-0.2); #Eosinphils 0.1 thou/uL (0.0-0.7); #Lymphocytes 1.8 thou/uL (1.20-3.40); #Monocytes 2.2 thou/uL (0.11-0.59); #Neutrophils 21.5 thou/uL (1.40-6.50); %Basophils 0.3 % (0.0-1.0); %Eosinophils 0.5 % (0.0-10.0); %Monocytes 8.5 % (0.0-10.0); %Neutrophils 83.8 % (42.0-75.0); Hemoglobin 10.4 g/dL (14.0-18.0); Mean Corpuscular Hemoglobin 32.5 pg (27.0-31.0); Mean Corpuscular Volume 98.5 fL (78.0-98.0); Mean Platelet Volume 5.8 fL (7.4-10.4); Platelet Count 642 thou/uL (130-400); RBC Distribution Width 12.7 % (11.5-14.5); Red Blood Cell (RBC) Count 3.19 mill/uL (4.70-6.10); White Blood Cell (WBC) Count 25.6 thou/uL (4.8-10.8)
[2019-07-16 07:43] LABS: Anion Gap 13 mmol/L (10-20); BUN (Urea Nitrogen) 17 mg/dL (8.4-25.7); Calc. Creatinine Clearance 99 mL/min (70-130); Calcium 9.4 mg/dL (7.8-10.44); Carbon Dioxide 28 mmol/L (22-29); Chloride 95 mmol/L (98-107); Estimated GFR-MDRD 72; Glucose 111 mg/dL (70-105); Potassium 4.3 mmol/L (3.5-5.1); Sodium 132 mmol/L (136-145)
[2019-07-16] MEDS: Nadolol 40 MG TAB PO SCH (08:26)
[2019-07-16] MEDS: Famotidine/PF 20 mg/2ml Vial SLOW IVP SCH ×2 (08:26→20:32)
[2019-07-16] MEDS: Enoxaparin Sodium 40 MG/0.4 ML SYRINGE SC SCH (08:26)
[2019-07-16] MEDS: Morphine 4 MG/ML VIAL SLOW IVP PRN ×4 (08:35→21:57)
--- NOTE | 2019-07-16 11:59 | ULT ---
EXAM: Bilateral lower extremity venous Doppler US HISTORY: Left leg pain FINDINGS: Grayscale, color-flow, Doppler evaluation, spectral analysis of the bilateral lower extremities venou s structures is performed with 2-D imaging. The bilateral common femoral, superficial femoral, popliteal, posterior tibial, proximal greater saphenous and profunda femoral veins are imaged. There is normal luminal compressibility, flow, and augmentation in the visualized deep venous structu res of the bilateral lower extremities. IMPRESSION: No evidence of a deep vein thrombosis in either lower extremity.
[2019-07-16] MEDS: Sodium Chloride 0.9% 1,000 ML IV SCH ×2 (12:31→20:32)
[2019-07-16] MEDS: MEROPENEM 1 GM/50 ML 1 GM in Premix Bag 1 BAG IVPB SCH ×2 (14:29→20:32)
--- NOTE | 2019-07-16 14:54 | PDOC.HOSPP ---
- Subjective Encounter Date: 07/16/19 Encounter Time: 10:30 Subjective: pt up in bed still has pain to his left groin area - Objective Vital Signs & Weight: Vital Signs (12 hours) Temp Pulse Resp BP Pulse Ox 07/16/19 08:30 97 07/16/19 07:44 98.8 F 92 16 122/74 97 07/16/19 04:27 98.0 F 93 18 125/82 95 Weight Weight 198 lb 5 oz I&O: 07/15/19 07/16/19 07/17/19 06:59 06:59 06:59 Intake Total 1397 Balance 1397 Result Diagrams: 07/16/19 07:09 07/16/19 07:09 Hospitalist ROS - Review of Systems Respiratory: denies: cough, dry, shortness of breath, hemoptysis, SOB with excertion, pleuritic pain, sputum, wheezing, other Cardiovascular: denies: chest pain, palpitations, orthopnea, paroxysmal noc. dyspnea, edema, light headedness, other Gastrointestinal: reports: abdominal pain - Medication Medications: Active Medications Generic Name Dose Route Start Last Admin Trade Name Freq PRN Reason Stop Dose Admin Enoxaparin Sodium 40 mg 07/16/19 09:00 07/16/19 08:26 Lovenox SC 40 mg 0900 ARCHIE Administration Famotidine 20 mg 07/15/19 21:00 07/16/19 08:26 Pepcid SLOW IVP 20 mg BID ARCHIE Administration Sodium Chloride 1,000 mls @ 50 mls/hr 07/15/19 14:45 07/16/19 12:31 Normal Saline 0.9% IV 1,000 mls .Q20H ARCHIE Administration Meropenem 1 gm/ Device 50 mls @ 100 mls/hr 07/16/19 14:00 07/16/19 14:29 IVPB 50 mls Q8HR ARCHIE Administration Morphine Sulfate 4 mg 07/15/19 14:03 07/16/19 12:33 Morphine SLOW IVP 4 mg Q4H PRN Administration Mild-Moderate Pain (1-5) Nadolol 40 mg 07/16/19 09:00 07/16/19 08:26 Corgard PO 40 mg DAILY ARCHIE Administration Oxycodone HCl 5 mg 07/15/19 14:34 07/15/19 18:24 Oxycodone Ir PO 5 mg Q6H PRN Administration Pain Zolpidem Tartrate 10 mg 07/16/19 01:40 07/16/19 01:44 Ambien PO 10 mg HS PRN Administration Insomnia - Exam Neck: negative: supple, symmetric, no JVD, no thyromegaly, no lymphadenopathy, no carotid bruit, JVD Heart: negative: RRR, no murmur, no gallops, no rubs, normal peripheral pulses, irregular, diminshed peripheral pulses, murmur present, II/IV, III/IV Gastrointestinal: soft Gastrointestinal - other findings: pain on palpation of left lower abd area Hosp A/P (1) Left inguinal pain Code(s): R10.32 - LEFT LOWER QUADRANT PAIN Status: Acute (2) Leukocytosis Code(s): D72.829 - ELEVATED WHITE BLOOD CELL COUNT, UNSPECIFIED Status: Acute (3) Pseudocyst of pancreas Code(s): K86.3 - PSEUDOCYST OF PANCREAS Status: Acute (4) Pancreatitis Code(s): K85.90 - ACUTE PANCREATITIS WITHOUT NECROSIS OR INFECTION, UNSP Status: Acute (5) Alcoholism Code(s): F10.20 - ALCOHOL DEPENDENCE, UNCOMPLICATED Status: Acute - Plan spoke with ID will change abx to meropenam for now. will monitor. may consider getting cx from pseudocyst. will continue iv fluids. He has been eating well.
--- NOTE | 2019-07-16 15:24 | CON ---
DATE OF CONSULTATION: 07/16/2019 REASON FOR CONSULTATION: Groin pain, pancreatic pseudocyst. HISTORY OF PRESENT ILLNESS: The patient is a 54-year-old gentleman who has a history of alcoholism and a recent admission for acute severe pancreatitis with pseudocyst formation. He had multiorgan dysfunction with acute renal failure and other complications. He was given IV fluids. A nasogastric tube was placed. Electrolyte replacement. Unfortunately, he left against medical advice and came back a few days later and was readmitted. This time, he had IV fluid resuscitation, was given antimicrobial therapy for unclear indication. He was discharged on Atarax, spironolactone, sertraline, Protonix, cefpodoxime, albuterol, docusate, furosemide. He had a CT scan which showed possible loculated pockets of fluid versus infection. He was given cephalosporin for the possibility of spontaneous bacterial peritonitis. His white cell count improved down to 17,000. No sampling of peritoneal fluid was accomplished. He had three CT scan done including the one that was done this time and the first one showed severe fat stranding with edema , fluid surrounding the entire pancreas extending into the bilateral anterior pararenal fascia and the paracolic gutters. Some calcifications were noted in the spleen. There was edema in the presacral perirectal space. There was a 10 x 4 x 4 cm fluid collection without mckeon next to the stoma, and there was high-density liquid in the right and left colon and rectosigmoid. The next CT was done on June 28 and it showed again acute pancreatitis, inflammatory changes, loculated areas of fluid, swollen peripancreatic fluid with stranding area fluid below the stomach measuring 13 cm nodularity within the omentum and mesentery, and the radiologist was concerned with the possibility of peritoneal carcinomatosis as a focal thickening of the mid-ascending colon, and they felt it was not needed to rule out malignancy, and now he presents with what he describes as a fairly sudden onset of pain in the left groin and left medial thigh area, which appeared overnight when he was sleeping. Now, the pain is radiating toward the left side of his abdomen. Did not have any fever or chills. No headaches. No vomiting. No dyspnea or cough. No sputum production. No genitourinary symptoms. No diarrhea or bleeding. The CT scan this time demonstrated a large pancreatic pseudocyst, possibility of mucinous mass, and then the left iliopsoas collection. The final reading by the radiologist states that the enlargement of the iliopsoas muscle likely represents inflammatory change secondary to inflammatory process surrounding the pancreas extending down toward the left iliopsoas muscle. Currently, Mr. Herbert is again concerned with the pain. Now, it is not so much in the left medial groin and thigh and toward the abdomen, left lower quadrant flank and upper quadrant, left side. It is quite intense pain and it barely tolerates touching. PAST MEDICAL HISTORY: Includes alcoholism, acute pancreatitis, hypertension, GERD. PAST SURGICAL HISTORY: Rotator cuff repair, ankle repair. ALLERGIES: NONE. CURRENT MEDICATIONS: Include, 1. Lovenox. 2. Pepcid. 3. Meropenem. 4. Morphine. 5. Corgard. 6. Zofran. 7. Oxycodone. 8. Zolpidem. FAMILY HISTORY: Noncontributory. SOCIAL HISTORY: He used to drink, but quit just a month ago approximately. Never smoker. He is , lives with . No other drug use. PHYSICAL EXAMINATION: VITAL SIGNS: Essentially normal temperature. T-max 99.7, blood pressure 120/70 , pulse 92, respirations 16, and O2 saturation 97. SKIN: No areas of skin breakdown. The patient has peripheral IV access. He is voiding in the toilet. No lymphadenopathy. HEENT: Ocular movements conjugate. Oral cavity normal. NECK: Supple. LUNGS: Symmetric. Clear breath sounds. HEART: S1 and S2 regular rate. ABDOMEN: With marked tenderness in the left side with guarding and rebound extending from the upper to the lower quadrant. The tenderness in the groin is still there but less. The medial aspect of the left thigh tenderness has resolved. No genital abnormalities. No joint inflammatory activity. NEUROLOGIC: Nonfocal including cognitive function. LABORATORY DATA: White cell count is up to 29.6, now is 25.6, hemoglobin 11.8, platelets 744, 82% neutrophils, 7% bands. INR 1.3. Sodium 135, creatinine 1.01. Liver profile normal. Albumin 3.3, protein 8.7. Urinalysis was normal. Two sets of blood cultures pending thus far and the imaging studies noted above. ASSESSMENT: Acute pancreatitis secondary to alcoholism with pseudocyst formation and now what appears to be ruptured pseudocyst with peritonitis on the left side and extension into the groin with iliopsoas muscle inflammatory changes. Although bland peritonitis and iliopsoas involvement is possible. I cannot rule out that he has had infection of this pseudocyst by a bacterial pathogen due to translocation and will be going to have to cover this empirically with meropenem until proven otherwise. Looks like radiologist feels it is dangerous to perform percutaneous aspirate, which would be the ideal approach to determine if infection is present or not. Continue monitoring on clinical course. The endpoint will be improvement of pain and resolution of neutrophilia. May monitor C-reactive protein as well. May need follow up imaging studies. Gastrocystostomy might be required down the road depending on the progress and consolidation of the cyst. Job ID: [id number] [facility]
[2019-07-16] MEDS: oxyCODONE 5 MG TAB PO PRN (18:40)
[2019-07-17] MEDS: oxyCODONE 5 MG TAB PO PRN ×3 (00:25→20:39)
[2019-07-17] MEDS: Zolpidem Tartrate 5 MG TAB PO PRN ×2 (01:00→21:39)
[2019-07-17] MEDS: MEROPENEM 1 GM/50 ML 1 GM in Premix Bag 1 BAG IVPB SCH ×3 (05:35→20:38)
[2019-07-17 07:30] LABS: INR-International Normal Ratio 1.3; Prothrombin Time 15.7 SEC (12.0-14.7)
[2019-07-17 07:31] LABS: PTT 36.2 SEC (22.9-36.1)
[2019-07-17] MEDS: Nadolol 40 MG TAB PO SCH (07:49)
[2019-07-17] MEDS: Famotidine/PF 20 mg/2ml Vial SLOW IVP SCH ×2 (07:49→20:38)
[2019-07-17] MEDS: Morphine 4 MG/ML VIAL SLOW IVP PRN ×3 (07:49→17:39)
[2019-07-17] MEDS ORDERED: Sodium Bicarbonate 2.5 MEQ/5 ML VIAL ONE (08:00)
[2019-07-17] MEDS ORDERED: Fentanyl 100 MCG/2 ML VIAL ONE (08:00)
[2019-07-17] MEDS ORDERED: Midazolam HCl 2 mg/2 ml Vial ONE (08:00)
--- NOTE | 2019-07-17 09:29 | CT ---
CT-guided needle aspiration aspiration of a left retroperitoneal pseudocyst INDICATION: Suspected infected retroperitoneal pseudocyst TECHNIQUE: Informed consent was obtained. Preprocedure CT from 07/15/[address] images was performed today for guidance purposes only. Site overlying the large collection within the left anterior pararenal space, posterior to the descending left hemicolon, was localized. Site was prepped and draped in usual sterile fashion. Buffered 1% lidocaine was measured overlying subcutaneous tissues. Under CT fluoroscopic guidance, 18-gauge spinal needle was guided down to the c ollection. 20 cc of a greenish-yellow fluid was removed from the collection. Pressure was held at the sample site until hemostasis was obtained. Patient tolerated the aspiration without difficulty. IMPRESSION: Successful CT-guided aspiration of left retroperitoneal pseudocyst
--- NOTE | 2019-07-17 09:39 | PRG ---
DATE OF SERVICE: 07/16/2019 SUBJECTIVE: Mr. Herbert reports that he is feeling somewhat better today. He ambulated to the bathroom and back. He has not been able to walk further distances. He has pain still in the left groin but it seems to have settled more into the left lower quadrant. Still no upper abdominal pain or nausea or vomiting. OBJECTIVE: VITAL SIGNS: Temperature is 98.2, pulse 98, blood pressure 113/75. GENERAL: He is in no acute distress. Alert and oriented x3. LUNGS: Clear to auscultation bilaterally. HEART: Regular rate and rhythm without murmur. ABDOMEN: Soft. The upper abdomen without guarding. Bowel sounds are present. This is significant tenderness in the left lower quadrant. EXTREMITIES: No lower extremity edema. LABORATORY DATA: White blood cell count 25.6, hemoglobin 11.4, platelets 642. IMPRESSION: 1. Pancreatitis. Acute alcohol-induced pancreatitis presenting in mid June. This was complicated by renal failure. He now has developed a significant pseudocyst that is causing early satiety. 2. Inflammatory process of the iliopsoas muscle. The pseudocyst process related iliopsoas muscle question whether or not this is infectious. He is being covered with antibiotics and has been changed from Zosyn to meropenem. RECOMMENDATIONS: 1. We will plan to follow through with CT-guided fine needle aspiration of the pancreatic pseudocyst to evaluate for Gram stain and culture. 2. . Job ID: [id number]
[2019-07-17 10:01] LABS: Hemoglobin 10.4 g/dL (14.0-18.0); Mean Corpuscular Hemoglobin 32.3 pg (27.0-31.0); Mean Corpuscular Volume 97.8 fL (78.0-98.0); Mean Platelet Volume 5.6 fL (7.4-10.4); Platelet Count 694 thou/uL (130-400); RBC Distribution Width 12.8 % (11.5-14.5); Red Blood Cell (RBC) Count 3.21 mill/uL (4.70-6.10); White Blood Cell (WBC) Count 28.2 thou/uL (4.8-10.8)
[2019-07-17 10:22] LABS: Anion Gap 14 mmol/L (10-20); BUN (Urea Nitrogen) 12 mg/dL (8.4-25.7); Calc. Creatinine Clearance 131 mL/min (70-130); Calcium 9.4 mg/dL (7.8-10.44); Carbon Dioxide 27 mmol/L (22-29); Chloride 97 mmol/L (98-107); Estimated GFR-MDRD Greater than 90; Glucose 102 mg/dL (70-105); Potassium 4.5 mmol/L (3.5-5.1); Sodium 133 mmol/L (136-145)
[2019-07-17 10:41] LABS: Band 3 % (5-11); Lymphocytes 5 % (21-51); MDiff Complete? YES; Metamyelocyte 1 % (0-0); Monocytes 11 % (0-10); Neutrophil 80 % (42-75); Platelet Morphology Comment Appears Increased; Toxic Granulation SLIGHT
[2019-07-17] MEDS: Sodium Chloride 0.9% 1,000 ML IV SCH ×2 (13:44→20:38)
--- NOTE | 2019-07-17 16:30 | PRG ---
DATE OF SERVICE: 07/17/2019 SUBJECTIVE: The patient still with pain in the left groin area in the left side of the abdomen. No vomiting. No shortness of breath. No back pain. No joint symptoms. OBJECTIVE: VITAL SIGNS: T-max 99.9, BP 125/78, pulse 104, respirations 18, and O2 saturation 95%. GENERAL: Does not appear in any acute distress. LUNGS: Clear. ABDOMEN: Tender left abdomen moderately so. No guarding. Left groin is less tender. EXTREMITIES: No joint inflammatory activity. LABORATORY DATA: White cell count is up to 28.2, hemoglobin 10.2, and platelets 694. Sodium 133 and creatinine 0.81. The aspirate was completed by Dr. Mirza and 20 mL of greenish yellow fluid removed from the collection. Gram-positive cocci and clusters have been identified in the Gram-stain. ASSESSMENT AND DISCUSSION: Acute pancreatitis associated with alcoholism, pseudocyst formation, and now superimposed infection of the pseudocyst and maybe rupture or peritonitis and left psoas muscle inflammatory changes. Continue meropenem and vancomycin. Awaiting on the culture results. It may vehicle return associate to be Staphylococcus aureus/methicillin-resistant Staphylococcus aureus, in that case we will simplify regimen. We will likely need PICC line placement and protracted IV antimicrobial therapy administration. Job ID: [id number]
[2019-07-17] MEDS: Vancomycin HCl 1.75 GM in Sodium Chloride 0.9% 500 ML IVPB SCH (17:39)
[2019-07-17] MEDS ORDERED: Vancomycin HCl 1.25 GM in Sodium Chloride 0.9% 250 ML 300 ML IVPB SCH (21:00)
[2019-07-18] MEDS: Morphine 4 MG/ML VIAL SLOW IVP PRN ×2 (00:36→05:43)
[2019-07-18 04:46] LABS: INR-International Normal Ratio 1.3; PTT 36.3 SEC (22.9-36.1); Prothrombin Time 15.7 SEC (12.0-14.7)
[2019-07-18 04:56] LABS: Hemoglobin 9.9 g/dL (14.0-18.0); Mean Corpuscular HGB CONC 33.6 g/dL (32.0-36.0); Mean Corpuscular Hemoglobin 32.3 pg (27.0-31.0); Mean Corpuscular Volume 96.1 fL (78.0-98.0); Mean Platelet Volume 5.6 fL (7.4-10.4); Platelet Count 612 thou/uL (130-400); RBC Distribution Width 12.8 % (11.5-14.5); Red Blood Cell (RBC) Count 3.06 mill/uL (4.70-6.10); White Blood Cell (WBC) Count 29.3 thou/uL (4.8-10.8)
[2019-07-18 04:57] LABS: Band 6 % (5-11); Lymphocytes 5 % (21-51); MDiff Complete? YES; Monocytes 6 % (0-10); Neutrophil 83 % (42-75); Platelet Morphology Comment Appears Increased
[2019-07-18 05:03] LABS: Anion Gap 11 mmol/L (10-20); BUN (Urea Nitrogen) 10 mg/dL (8.4-25.7); Calc. Creatinine Clearance 145 mL/min (70-130); Carbon Dioxide 27 mmol/L (22-29); Chloride 97 mmol/L (98-107); Estimated GFR-MDRD Greater than 90; Glucose 107 mg/dL (70-105); Potassium 3.9 mmol/L (3.5-5.1); Sodium 131 mmol/L (136-145)
[2019-07-18] MEDS: MEROPENEM 1 GM/50 ML 1 GM in Premix Bag 1 BAG IVPB SCH ×3 (05:42→22:45)
[2019-07-18] MEDS: Vancomycin HCl 1.75 GM in Sodium Chloride 0.9% 500 ML IVPB SCH ×2 (06:14→17:18)
[2019-07-18] MEDS: oxyCODONE 5 MG TAB PO PRN ×3 (08:19→22:33)
[2019-07-18] MEDS: Furosemide 40 MG TAB PO SCH (08:21)
[2019-07-18] MEDS: Spironolactone 25 MG TAB PO SCH (08:21)
[2019-07-18] MEDS: Nadolol 40 MG TAB PO SCH (08:21)
[2019-07-18] MEDS: Enoxaparin Sodium 40 MG/0.4 ML SYRINGE SC SCH (08:22)
[2019-07-18] MEDS: Famotidine/PF 20 mg/2ml Vial SLOW IVP SCH ×2 (08:22→20:42)
--- NOTE | 2019-07-18 09:07 | PDOC.HOSPP ---
- Subjective Encounter Date: 07/17/19 Encounter Time: 10:30 Subjective: pt up in bed bed still has pain to his left groin - Objective Vital Signs & Weight: Vital Signs (12 hours) Temp Pulse Resp BP Pulse Ox 07/18/19 07:29 98.4 F 94 22 H 126/78 95 Weight Admit Weight 198 lb 5 oz Weight 198 lb 5 oz I&O: 07/17/19 07/18/19 07/19/19 06:59 06:59 06:59 Intake Total 1873 2297 Balance 1873 2297 Result Diagrams: 07/18/19 04:29 07/18/19 04:29 Hospitalist ROS - Review of Systems Cardiovascular: denies: chest pain, palpitations, orthopnea, paroxysmal noc. dyspnea, edema, light headedness, other Gastrointestinal: denies: nausea, vomiting, abdominal pain, diarrhea, constipation, melena, hematochezia, other Musculoskeletal: reports: other (groin pain) - Medication Medications: Active Medications Generic Name Dose Route Start Last Admin Trade Name Freq PRN Reason Stop Dose Admin Enoxaparin Sodium 40 mg 07/16/19 09:00 07/18/19 08:22 Lovenox SC Not Given 0900 ARCHIE Famotidine 20 mg 07/15/19 21:00 07/18/19 08:22 Pepcid SLOW IVP Not Given BID ARCHIE Furosemide 40 mg 07/18/19 07:30 07/18/19 08:21 Lasix PO 40 mg DAILY-AC ARCHIE Administration Meropenem 1 gm/ Device 50 mls @ 100 mls/hr 07/16/19 14:00 07/18/19 05:42 IVPB 50 mls Q8HR ARCHIE Administration Vancomycin HCl 1.75 gm/ Sodium 500 mls @ 250 mls/hr 07/17/19 17:00 07/18/19 06:14 Chloride IVPB 500 mls 0500,1700 ARCHIE Administration Morphine Sulfate 4 mg 07/15/19 14:03 07/18/19 05:43 Morphine SLOW IVP 4 mg Q4H PRN Administration Mild-Moderate Pain (1-5) Nadolol 40 mg 07/16/19 09:00 07/18/19 08:21 Corgard PO 40 mg DAILY ARCHIE Administration Oxycodone HCl 5 mg 07/15/19 14:34 07/18/19 08:19 Oxycodone Ir PO 5 mg Q6H PRN Administration Pain Spironolactone 25 mg 07/18/19 08:00 07/18/19 08:21 Aldactone PO 25 mg QAM-WM ARCHIE Administration Zolpidem Tartrate 10 mg 07/16/19 01:40 07/17/19 21:39 Ambien PO 10 mg HS PRN Administration Insomnia - Exam Neck: negative: supple, symmetric, no JVD, no thyromegaly, no lymphadenopathy, no carotid bruit, JVD Heart: negative: RRR, no murmur, no gallops, no rubs, normal peripheral pulses, irregular, diminshed peripheral pulses, murmur present, II/IV, III/IV Respiratory: negative: CTAB, no wheezes, no rales, no ronchi, normal chest expansion, no tachypnea, normal percussion, rales, rhonchi, tachypneic, wheezes Hosp A/P (1) Left inguinal pain Code(s): R10.32 - LEFT LOWER QUADRANT PAIN Status: Acute (2) Leukocytosis Code(s): D72.829 - ELEVATED WHITE BLOOD CELL COUNT, UNSPECIFIED Status: Acute (3) Pseudocyst of pancreas Code(s): K86.3 - PSEUDOCYST OF PANCREAS Status: Acute (4) Pancreatitis Code(s): K85.90 - ACUTE PANCREATITIS WITHOUT NECROSIS OR INFECTION, UNSP Status: Acute (5) Alcoholism Code(s): F10.20 - ALCOHOL DEPENDENCE, UNCOMPLICATED Status: Acute - Plan spoke with ID will change abx to meropenam for now. will monitor. may consider getting cx from pseudocyst. will continue iv fluids. He has been eating well. 07/[address] guided draining of pseudocyst. will await cx. he still has leukocytosis. ? need vanco. will add id.
--- NOTE | 2019-07-18 10:44 | PQF ---
JOVITA KAHN, GRESHAM [id number] CLINICAL DOCUMENTATION IMPROVEMENT CLARIFICATION FORM: ICD-10 Updated PLEASE DO AN ADDENDUM TO THE PROGRESS NOTE WITH ANY DOCUMENTATION UPDATES OR ADDITIONS AND CARRY THROUGH TO DC SUMMARY. THANK YOU. DATE: 07/22/19 ATTN: Dr. Godoy Please exercise your independent, professional judgment in responding to the clarification form. Clinical indicators are provided on the bottom of this form for your review Please check appropriate box(es): [ ] Sepsis due to: pseudocyst of pancreas [ ] Sepsis due to pseudocyst with perionitits [x ] Localized infection without sepsis [ ] Other diagnosis [ ] Unable to determine In addition, please specify: Present on Admission (POA): [ x ] Yes [ ] No [ ] Unable to determine For continuity of documentation, please document condition throughout progress notes and discharge summary. Thank You. CLINICAL INDICATORS - SIGNS / SYMPTOMS / LABS / RESULTS AND LOCATION IN MR 07/15 VS: HR 92-102 07/15 WBC 29.6, % NEUTROS 82 per lab RISK FACTORS / RESULTS AND LOCATION IN MR Infection/Bacteremia--> 07/16 ID(Angel): "now what appears to be ruptured pseudocyst with perionitits on the left side and extension into the groin with iliopsoas muscle inflammatory changes" TREATMENTS / RESULTS AND LOCATION IN MR Daily CBC 07/15 orders Blood cultures 07/15 per orders Aspiration cx pseudocyst with culture 07/17 per orders IV antibiotics: 07/15 Rocephin 2gm IV x1; 07/15-07/16 Zosyn 3.375 gm IV G8F--01/ 13 change to 07/16 Meropenem 1gm IV Q8H-to date; 07/17 Vancomycin 1.75 gm Q12H IV fluids--NS at 50 07/15 to date per orders ID Consult 07/15 per orders (This form is maintained as a part of the permanent medical record) 2014 [employer]. All Rights Reserved Angy Felton RN, BSN, CCDS [email or web address]
[2019-07-18] MEDS: Ketorolac Tromethamine 30 MG/ML VIAL IVP SCH ×2 (12:15→20:41)
--- NOTE | 2019-07-18 14:23 | SPC ---
Sonographic guided left upper extremity PICC placement HISTORY: Infection. Need for long-term antibiotics. FINDINGS: After explaining the procedure and answering all questions, the left upper extremity was pr epped and draped in usual sterile fashion. Sterile technique, buffered local anesthesia, sonographic guidance, and a 22-gauge needle were used to carefully access the left basilic vein. Gaudencio dard technique was used to place the tip of a 5 Sudanese single lumen PICC so that the tip lies at the level of the right atrium. Catheter was flushed and secured externally. Patient tolerated the pro cedure well and was returned in unchanged condition. Fluoroscopy time 0 seconds. IMPRESSION: Left upper extremity PICC is ready for use.
--- NOTE | 2019-07-18 14:30 | ULT ---
SCROTAL ULTRASOUND INDICATION: Scrotal swelling, left testicular pain and erythema TECHNIQUE: Grayscale, color Doppler spectral Doppler images were obtained of the scrotum. COMPARISON: CT of the abdomen and pelvis dated 07/15/2019 FINDINGS: Right Testicle: Size: 4.8 x 2.2 x 3.2. Flow: There is normal vascular flow to the right testicle Hydrocele: Small Epididymis: The right epididymis appears within normal limits. Left Testicle: Size: 4.6 x 2.4 x 2.95 cm. Flow: There is normal vascular flow to left testicle. Hydrocele: Moderate sized left-sided hydrocele Epididymis: Enlarged and heterogeneous with increased vascular flow Additional findings: There is a nonvascular mixed echogenicity fluid type collection seen within the posterior left hemiscrotal wall suspicious for abscess.This measures approximately 4.7 x 2.6 cm in size. There is marked wall thickening involving the scrotum suspicious for cellulitis. Impression: 1. Left-sided epididymitis with moderate left hydrocele. 2. Scrotal cellulitis with left posterior hemiscrotal wall abscess measuring 4.7 x 2.6 cm.
--- NOTE | 2019-07-18 17:01 | PDOC.HOSPP ---
- Subjective Encounter Date: 07/18/19 Encounter Time: 11:30 Subjective: pt up in bed complains of pain to his left scrotum. - Objective Vital Signs & Weight: Vital Signs (12 hours) Temp Pulse Resp BP Pulse Ox 07/18/19 15:49 98 F 110 H 18 103/66 95 07/18/19 11:09 97.5 F L 94 18 128/83 96 07/18/19 07:29 98.4 F 94 22 H 126/78 95 Weight Admit Weight 198 lb 5 oz Weight 198 lb 5 oz I&O: 07/17/19 07/18/19 07/19/19 06:59 06:59 06:59 Intake Total 1873 2297 Balance 1873 2297 Result Diagrams: 07/18/19 04:29 07/18/19 04:29 Hospitalist ROS - Review of Systems Cardiovascular: denies: chest pain, palpitations, orthopnea, paroxysmal noc. dyspnea, edema, light headedness, other Gastrointestinal: denies: nausea, vomiting, abdominal pain, diarrhea, constipation, melena, hematochezia, other Genitourinary: reports: other (testicular pain) - Medication Medications: Active Medications Generic Name Dose Route Start Last Admin Trade Name Freq PRN Reason Stop Dose Admin Enoxaparin Sodium 40 mg 07/16/19 09:00 07/18/19 08:22 Lovenox SC Not Given 0900 ARCHIE Famotidine 20 mg 07/15/19 21:00 07/18/19 08:22 Pepcid SLOW IVP Not Given BID ARCHIE Furosemide 40 mg 07/18/19 07:30 07/18/19 08:21 Lasix PO 40 mg DAILY-AC ARCHIE Administration Meropenem 1 gm/ Device 50 mls @ 100 mls/hr 07/16/19 14:00 07/18/19 15:34 IVPB 50 mls Q8HR ARCHIE Administration Vancomycin HCl 1.75 gm/ Sodium 500 mls @ 250 mls/hr 07/17/19 17:00 07/18/19 06:14 Chloride IVPB 500 mls 0500,1700 ARCHIE Administration Ketorolac Tromethamine 15 mg 07/18/19 11:00 07/18/19 12:15 Toradol IVP 07/19/19 03:01 15 mg Q8H ARCHIE Administration Morphine Sulfate 4 mg 07/15/19 14:03 07/18/19 05:43 Morphine SLOW IVP 4 mg Q4H PRN Administration Mild-Moderate Pain (1-5) Nadolol 40 mg 07/16/19 09:00 07/18/19 08:21 Corgard PO 40 mg DAILY ARCHIE Administration Oxycodone HCl 5 mg 07/15/19 14:34 07/18/19 15:33 Oxycodone Ir PO 5 mg Q6H PRN Administration Pain Spironolactone 25 mg 07/18/19 08:00 07/18/19 08:21 Aldactone PO 25 mg QAM-WM ARCHIE Administration Zolpidem Tartrate 10 mg 07/16/19 01:40 07/17/19 21:39 Ambien PO 10 mg HS PRN Administration Insomnia - Exam ENT: negative: normocephalic atraumatic, no oropharyngeal lesions, moist mucosa , dry oral mucosa Neck: negative: supple, symmetric, no JVD, no thyromegaly, no lymphadenopathy, no carotid bruit, JVD Heart: negative: RRR, no murmur, no gallops, no rubs, normal peripheral pulses, irregular, diminshed peripheral pulses, murmur present, II/IV, III/IV Respiratory: negative: CTAB, no wheezes, no rales, no ronchi, normal chest expansion, no tachypnea, normal percussion, rales, rhonchi, tachypneic, wheezes Gastrointestinal: negative: soft, non-tender, non-distended, normal bowel sounds , no palpable masses (mild erythema noted to left testicule and some erythema to suprapubic area which is new from the past couple days.), no hepatomegaly, no splenomegaly, no bruit, no guarding, no rigidity, tender to palpation, distended, diminished bowl sounds, voluntary guarding Hosp A/P (1) Left inguinal pain Code(s): R10.32 - LEFT LOWER QUADRANT PAIN Status: Acute (2) Leukocytosis Code(s): D72.829 - ELEVATED WHITE BLOOD CELL COUNT, UNSPECIFIED Status: Acute (3) Pseudocyst of pancreas Code(s): K86.3 - PSEUDOCYST OF PANCREAS Status: Acute (4) Pancreatitis Code(s): K85.90 - ACUTE PANCREATITIS WITHOUT NECROSIS OR INFECTION, UNSP Status: Acute (5) Alcoholism Code(s): F10.20 - ALCOHOL DEPENDENCE, UNCOMPLICATED Status: Acute (6) Testicle tenderness Code(s): N50.9 - DISORDER OF MALE GENITAL ORGANS, UNSPECIFIED Status: Acute - Plan spoke with ID will change abx to meropenam for now. will monitor. may consider getting cx from pseudocyst. will continue iv fluids. He has been eating well. 07/[address] guided draining of pseudocyst. will await cx. he still has leukocytosis. ? need vanco. will add id. 07/18 will get testicular ultrasound since i have been examining his scrotum for the past couple days and no erythema noted but he has significant erythema.
--- NOTE | 2019-07-18 21:07 | PRG ---
DATE OF SERVICE: 07/18/2019 SUBJECTIVE: Mr. Herbert continues to have pain in the left groin area. Today, he woke up with increased scrotal edema and swelling and redness. This was a new change today compared to yesterday. He states that he is actually tolerating his meals better and having less postprandial fullness and early satiety. OBJECTIVE: VITAL SIGNS: Temperature 97.9, pulse 100, blood pressure 112/69. GENERAL: He is in no acute distress. He is alert and oriented x3. LUNGS: Clear to auscultation bilaterally. HEART: Regular rate and rhythm without murmur. ABDOMEN: Soft. He is completely nontender in the upper abdomen; however, he has significant tenderness in the left lower quadrant. He has scrotal swelling and erythema. LABORATORY DATA: White blood cell count is 29.3, hemoglobin 9.9, platelets 612. INR 1.3. Creatinine 0.73. IMPRESSION: 1. Pancreatic pseudocyst. CT-guided aspiration showed gram positive cocci on the Gram stain; however, the culture has not grown anything as of yet. His antibiotics were adjusted to include vancomycin in addition to the meropenem. 2. Recent severe pancreatitis with acute tubular necrosis, which has since resolved. 3. Iliopsoas inflammation, now scrotal involvement with fluid collection related to the pseudocyst and pancreatitis. RECOMMENDATIONS: 1. Has had a PICC line in place for anticipated need for longer-term antibiotics. 2. I did discuss his case with interventional Gastroenterology at [facility] in [place]. It is possible that his pseudocyst is mature enough at this point to proceed with endoscopic ultrasound with pseudocyst gastrostomy. It is unclear if the iliopsoas process is directly communicating with the pseudocyst, but I suspect that it is. Either way, the large pseudocyst also is causing early satiety and will require drainage. We would want to avoid percutaneous drain as this is likely to introduce high risk for infection to the pseudocyst. 3. At this point with IV antibiotics and fluids and symptomatic support, I think we have reached, although, we can do locally. Given that his white count remains elevated, he is having significant pain and has been unable to walk due to the inflammatory process in the iliopsoas and now apparent worsening with new development of scrotal involvement. I have recommend to transfer on down to [facility] in [place] to proceed with pseudocyst gastrostomy. The patient declined transfer as of yet and would like to wait and see how he does with the change in antibiotics before agrees to transferring down and would rather try to go down and get that procedure done as an outpatient. Ultimately, I think this would be better performed now as an inpatient procedure giving the progressive worsening and failure to improve with the symptoms. Job ID: [id number]
[2019-07-18] MEDS: Zolpidem Tartrate 5 MG TAB PO PRN (23:47)
[2019-07-19] MEDS: Ketorolac Tromethamine 30 MG/ML VIAL IVP SCH (03:31)
[2019-07-19] MEDS: MEROPENEM 1 GM/50 ML 1 GM in Premix Bag 1 BAG IVPB SCH ×3 (05:31→22:23)
[2019-07-19] MEDS: Vancomycin HCl 1.75 GM in Sodium Chloride 0.9% 500 ML IVPB SCH ×2 (06:11→16:14)
[2019-07-19 06:24] LABS: Vancomycin, Trough 17.7 ug/mL
[2019-07-19] MEDS: Enoxaparin Sodium 40 MG/0.4 ML SYRINGE SC SCH (08:15)
[2019-07-19] MEDS: Nadolol 40 MG TAB PO SCH (08:15)
[2019-07-19] MEDS: Furosemide 40 MG TAB PO SCH (08:15)
[2019-07-19] MEDS: Spironolactone 25 MG TAB PO SCH (08:15)
[2019-07-19] MEDS: Famotidine/PF 20 mg/2ml Vial SLOW IVP SCH ×2 (08:16→19:44)
[2019-07-19] MEDS ORDERED: Ondansetron PF 4 MG/2 ML Vial ONE (10:08)
[2019-07-19] MEDS ORDERED: PROPOFOL 200 MG/20 ML VIAL ONE (10:08)
[2019-07-19 10:40] LABS: Hemoglobin 9.8 g/dL (14.0-18.0); Mean Corpuscular HGB CONC 33.6 g/dL (32.0-36.0); Mean Corpuscular Hemoglobin 32.1 pg (27.0-31.0); Mean Corpuscular Volume 95.7 fL (78.0-98.0); Mean Platelet Volume 5.5 fL (7.4-10.4); Platelet Count 645 thou/uL (130-400); RBC Distribution Width 12.9 % (11.5-14.5); Red Blood Cell (RBC) Count 3.04 mill/uL (4.70-6.10)
[2019-07-19 11:02] LABS: Lymphocytes 3 % (21-51); MDiff Complete? YES; Monocytes 6 % (0-10); Neutrophil 91 % (42-75); Platelet Morphology Comment Appears Increased; Small Platelets MODERATE
--- NOTE | 2019-07-19 14:03 | PRG ---
DATE OF SERVICE: 07/19/2019 REASON FOR CONSULTATION: Pancreatitis with complications including pancreatic pseudocyst, iliopsoas inflammation. SUBJECTIVE: The patient states that he was able to tolerate his diet yesterday without any additional problems. He states that his abdominal fullness and early satiety have resolved. However, he still continues to have significant scrotal edema, swelling, and redness that is limiting his ability to move and ambulate effectively. He currently denies any nausea, vomiting, fevers, chills, abdominal pain, dysphagia, odynophagia, or GI bleeding. OBJECTIVE: VITAL SIGNS: Temperature 98.3, pulse 95, blood pressure 129/81, respiratory rate 24, saturating 95% on room air. GENERAL: The patient is lying in bed, in no acute distress. Alert and oriented x4. CARDIOVASCULAR: Regular rate and rhythm. RESPIRATORY: Clear to auscultation bilaterally. ABDOMEN: Normoactive bowel sounds. Soft, nontender, nondistended. Mild tenderness to palpation along the pubic bone. He has increased his scrotal swelling and erythema. LABORATORY DATA: CBC with a white blood cell count of 26, hemoglobin 9.8, hematocrit 29.1, platelets 645. IMAGING DATA: Testicular ultrasound obtained on July 18, 2019, showed normal vascular flow and normal-appearing epididymis in the right side. On the left testicle, there was moderate-sized left-sided hydrocele. There was also a mixed echogenicity fluid type collection seen within the posterior left hemiscrotal wall suspicious for abscess measuring 4.7 x 2.6 cm in size. There was also marked wall thickening involving the scrotum suspicious for associated cellulitis. ASSESSMENT AND PLAN: 1. Pancreatic pseudocyst. The patient is presenting with a fairly large pancreatic pseudocyst extending down into the mid abdomen with possible involvement of the iliopsoas muscle. CT-guided aspiration showed gram-positive cocci in a Gram stain; however, the culture has not grown anything as of yet, raising concern for possible skin contaminant. We will continue current antibiotics. 2. Severe pancreatitis, which has resolved with no further abdominal pain. 3. Iliopsoas inflammation. The patient is presenting with CT findings consistent with possible extension of the pancreatic pseudocyst into the iliopsoas region, but it is unclear if this is contributing to his current abdominal pain/scrotal pain. The initial plan was to transfer the patient to [place] for endoscopic ultrasound and possible cystogastrostomy; however, with the quaker of a possible scrotal abscess, this maybe contributing to the pain in the lower abdomen and maybe amenable to treatment here. We will hold on transferring the patient for EUS with cystogastrostomy for now given improvement of his oral intake. 4. Scrotal abscess. The patient was evaluated by Urology earlier today with diagnosis of a scrotal abscess contributing to possible cellulitis. The patient will possibly be taken to the OR today for irrigation and drainage. We will continue to monitor the patient's pain in the postprocedure period, and if he continues to have lower abdominal pain, we still consider possible transfer to [place] for drainage of this pancreatic pseudocyst. Job ID: [id number]
--- NOTE | 2019-07-19 14:46 | PDOC.HOSPP ---
- Subjective Encounter Date: 07/19/19 Encounter Time: 11:45 Subjective: pt complains of pain on ambulation. According to him his pain has not worsen neither has it improved. - Objective Vital Signs & Weight: Vital Signs (12 hours) Temp Pulse Resp BP BP Pulse Ox 07/19/19 08:00 98.3 F 95 24 H 129/81 95 07/19/19 05:03 98.9 F 98 19 130/82 95 Weight Admit Weight 198 lb 5 oz Weight 198 lb 5 oz I&O: 07/18/19 07/19/19 07/20/19 06:59 06:59 06:59 Intake Total 2297 Balance 2297 Result Diagrams: 07/19/19 10:22 07/18/19 04:29 Hospitalist ROS - Review of Systems Cardiovascular: denies: chest pain, palpitations, orthopnea, paroxysmal noc. dyspnea, edema, light headedness, other Gastrointestinal: denies: nausea, vomiting, abdominal pain, diarrhea, constipation, melena, hematochezia, other Other: left groin pain - Medication Medications: Active Medications Generic Name Dose Route Start Last Admin Trade Name Freq PRN Reason Stop Dose Admin Enoxaparin Sodium 40 mg 07/16/19 09:00 07/19/19 08:15 Lovenox SC 40 mg 0900 ARCHIE Administration Famotidine 20 mg 07/15/19 21:00 07/19/19 08:16 Pepcid SLOW IVP 20 mg BID ARCHIE Administration Furosemide 40 mg 07/18/19 07:30 07/19/19 08:15 Lasix PO 40 mg DAILY-AC ARCHIE Administration Meropenem 1 gm/ Device 50 mls @ 100 mls/hr 07/16/19 14:00 07/19/19 05:31 IVPB 50 mls Q8HR ARCHIE Administration Vancomycin HCl 1.75 gm/ Sodium 500 mls @ 250 mls/hr 07/17/19 17:00 07/19/19 06:11 Chloride IVPB 500 mls 0500,1700 ARCHIE Administration Morphine Sulfate 4 mg 07/15/19 14:03 07/18/19 05:43 Morphine SLOW IVP 4 mg Q4H PRN Administration Mild-Moderate Pain (1-5) Nadolol 40 mg 07/16/19 09:00 07/19/19 08:15 Corgard PO 40 mg DAILY ARCHIE Administration Oxycodone HCl 5 mg 07/15/19 14:34 07/18/19 22:33 Oxycodone Ir PO 5 mg Q6H PRN Administration Pain Spironolactone 25 mg 07/18/19 08:00 07/19/19 08:15 Aldactone PO 25 mg QAM-WM ARCHIE Administration Zolpidem Tartrate 10 mg 07/16/19 01:40 07/18/19 23:47 Ambien PO 10 mg HS PRN Administration Insomnia - Exam Heart: negative: RRR, no murmur, no gallops, no rubs, normal peripheral pulses, irregular, diminshed peripheral pulses, murmur present, II/IV, III/IV Respiratory: negative: CTAB, no wheezes, no rales, no ronchi, normal chest expansion, no tachypnea, normal percussion, rales, rhonchi, tachypneic, wheezes Gastrointestinal: negative: soft, non-tender, non-distended, normal bowel sounds , no palpable masses, no hepatomegaly, no splenomegaly, no bruit (: he has erythema to his pubic area and left testicular area.), no guarding, no rigidity , tender to palpation, distended, diminished bowl sounds, voluntary guarding Hosp A/P (1) Left inguinal pain Code(s): R10.32 - LEFT LOWER QUADRANT PAIN Status: Acute (2) Leukocytosis Code(s): D72.829 - ELEVATED WHITE BLOOD CELL COUNT, UNSPECIFIED Status: Acute (3) Pseudocyst of pancreas Code(s): K86.3 - PSEUDOCYST OF PANCREAS Status: Acute (4) Pancreatitis Code(s): K85.90 - ACUTE PANCREATITIS WITHOUT NECROSIS OR INFECTION, UNSP Status: Acute (5) Alcoholism Code(s): F10.20 - ALCOHOL DEPENDENCE, UNCOMPLICATED Status: Acute (6) Testicle tenderness Code(s): N50.9 - DISORDER OF MALE GENITAL ORGANS, UNSPECIFIED Status: Acute - Plan spoke with ID will change abx to meropenam for now. will monitor. may consider getting cx from pseudocyst. will continue iv fluids. He has been eating well. 07/[address] guided draining of pseudocyst. will await cx. he still has leukocytosis. ? need vanco. will add id. 07/18 will get testicular ultrasound since i have been examining his scrotum for the past couple days and no erythema noted but he has significant erythema. 07/19 spoke with gi and we will see how he does after his procedure. If his wbc does not improve we will transfer him. will continue abx. He did have some hematuria today. will monitor.
[2019-07-19] MEDS: oxyCODONE 5 MG TAB PO PRN ×2 (15:03→19:45)
[2019-07-19] MEDS ORDERED: Bupivacaine 0.25% HCL 30 ML VIAL ONE (15:30)
[2019-07-19] MEDS ORDERED: Fentanyl 100 MCG/2 ML VIAL ONE (16:02)
--- NOTE | 2019-07-19 18:01 | PRG ---
DATE OF SERVICE: 07/19/2019 SUBJECTIVE: The patient developed worsening swelling of the left scrotal sac and is in the OR right now having a drain by Dr. Escobar. They were considering transfer to [place]. OBJECTIVE: VITAL SIGNS: Have been stable. He is afebrile. LABORATORY DATA: The white cell count is at 26,000, hemoglobin 9.8, platelets up to 645, 91% neutrophils. Sodium 131, creatinine 0.73. Cultures with gram-positive cocci in rare growth, subculture in progress from the pseudocyst aspirate. ASSESSMENT AND DISCUSSION: Acute pancreatitis with alcoholism, pseudocyst formation, now superimposed infection, and then extension into the retroperitoneum towards the left psoas muscle all the way to the scrotum along the fascial planes, on meropenem and vancomycin with sluggish improvement. Going for drainage of the scrotum and see if he is going to need transfer or not depending on clinical and laboratory response in next few days. Continue current regimen. Job ID: [id number]
[2019-07-19] MEDS ORDERED: PACU-Morphine 4MG/ML VIAL SLOW IVP PRN (18:10)
[2019-07-19] MEDS ORDERED: Promethazine HCl 25 MG/ML VIAL SLOW IVP PRN (18:10)
[2019-07-19] MEDS ORDERED: HYDROmorphone 2 MG/ML VIAL SLOW IVP PRN (18:10)
[2019-07-19] MEDS ORDERED: Promethazine HCl 25 MG/ML VIAL IM PRN (18:10)
[2019-07-19] MEDS ORDERED: Ondansetron HCl/PF 4 MG/2 ML Vial IVP PRN (18:10)
--- NOTE | 2019-07-19 19:25 | CON ---
DATE OF CONSULTATION: 07/19/2019 REASON FOR CONSULTATION: Left scrotal wall abscess. HISTORY OF PRESENT ILLNESS: Mr. Herbert is a 54-year-old gentleman admitted to the hospital on 07/15/2019 for followup and management of a pancreatic pseudocyst. The patient had been admitted previously in June 2019 for pancreatitis. He was treated in the ICU at that time and left AMA on 06/26/2019. He had followup on 06/28/2019, and a CT scan that demonstrated acute pancreatitis. He was treated as an outpatient and then more recently returned to the hospital on 07/15/2019 with complaints of left groin pain, anorexia with early satiety. Since admission, he has been receiving IV antibiotic therapy and has had repeat imaging demonstrating a large pancreatic pseudocyst, which is not new and some iliopsoas inflammatory changes, which are new. He underwent percutaneous drainage on 07/17/2019 with drainage of 20 mL of greenish yellow fluid from the large collection posterior to the descending left hemicolon. He underwent scrotal ultrasonography yesterday on 07/18/2019. It demonstrated a scrotal wall abscess. The patient says that overall he has improved. He states the swelling and pain and tenderness in the suprapubic and inguinal region have improved since yesterday. He denies any fevers. He has been hemodynamically stable. PAST MEDICAL HISTORY: Hypertension, history of pancreatitis, gastroesophageal reflux disease. PAST SURGICAL HISTORY: Rotator cuff repair, left ankle repair. ALLERGIES: NO KNOWN DRUG ALLERGIES. CHRONIC MEDICATIONS: Include: 1. Pantoprazole. 2. Spironolactone. 3. Nadolol. 4. Lasix. SOCIAL HISTORY: He does have a history of alcohol use. Denies smoking or recreational drug use. He is and lives with his . REVIEW OF SYSTEMS: RESPIRATORY: Denies shortness of breath. CARDIOVASCULAR: Denies chest pain or palpitations. GASTROINTESTINAL: Please see history of present illness. GENITOURINARY: Denies any voiding difficulties or prior urologic history. NEUROLOGIC: Denies any focal neurologic changes. PHYSICAL EXAMINATION: GENERAL: He is awake, alert. He is in no distress at this time. HEENT: Normocephalic, atraumatic. NECK: Supple without masses. CHEST: Clear to auscultation. CARDIOVASCULAR: Regular rate and rhythm. ABDOMEN: Soft, nontender. No palpable masses. No peritoneal signs. Suprapubic region demonstrates some erythema and some mild discomfort on palpation. GENITOURINARY: Scrotum is normal other than posteriorly near the perineum where there is an indurated mass which is tender. LABORATORY DATA: Most recent CBC; white blood cell count 26,000, hemoglobin 9.8, hematocrit 29. Blood cultures negative. Aspiration from CT-guided procedure negative today other than a few gram-positive cocci. IMPRESSION: Mr. Herbert is a 54-year-old gentleman with what appears to be a pancreatic pseudocyst and iliopsoas abscess or inflammation and scrotal abscess. Whether these are related or unrelated, it is unclear. There has been talk of transferring him to [place] for drainage of the abscess in fear that it is the source of his scrotal complaints. It is unclear to me whether there is a communication between the intra-abdominal pathology including pseudocyst and iliopsoas abscess and the scrotal pathology. I have recommended scrotal abscess drainage and reassessment. If things improve after drainage, then perhaps transfer can be avoided. Otherwise, if he does not improve, then he may require transfer for procedure recommended by Gastroenterology. I have discussed this plan with the patient. He is interested in proceeding with scrotal wall abscess drainage and reassessment. I have discussed the procedure, potential limitation, and complications with him. PLAN: Drainage of scrotal abscess. Job ID: [id number]
--- NOTE | 2019-07-19 20:41 | OP ---
DATE OF PROCEDURE: 07/19/2019 PREOPERATIVE DIAGNOSIS: Scrotal abscess. POSTOPERATIVE DIAGNOSIS: Periscrotal abscess. PROCEDURE: Incision and drainage. ANESTHESIA: General. INDICATION: Mr. Herbert is a 54-year-old gentleman who has been having left inguinal pain for approximately the last week. He has additional problems including a large pancreatic pseudocyst and possible iliopsoas abscess. Recent scrotal ultrasound demonstrated a scrotal abscess. Examination reveals the abscess to be periscrotal and not involving the scrotum itself. He is brought to the operating room for incision and drainage. DETAILS OF PROCEDURE: Patient was given general anesthesia and IV antibiotics have been in place since admission to the hospital. He was sterilely prepped and draped in the lithotomy position. An incision was made in the periscrotal region on the left side. Purulent material drained from the incision. The probing incision demonstrated communicated with a left inguinal area. After all purulent material had been drained, copious irrigation was performed of the wound. The wound was then packed. There is no communication noted to be superior to the inguinal region and it did not appear to communicate with any intraabdominal region. COMPLICATION: None. ESTIMATED BLOOD LOSS: Minimal. DISPOSITION: To postanesthesia care unit. PLAN: Wound packing by wound care team until healed. Culture sent to laboratory. Job ID: [id number]
[2019-07-19] MEDS: Zolpidem Tartrate 5 MG TAB PO PRN (22:46)
[2019-07-20] MEDS: oxyCODONE 5 MG TAB PO PRN ×3 (02:05→18:05)
[2019-07-20 05:42] LABS: Anion Gap 11 mmol/L (10-20); BUN (Urea Nitrogen) 11 mg/dL (8.4-25.7); Calc. Creatinine Clearance 128 mL/min (70-130); Calcium 8.8 mg/dL (7.8-10.44); Carbon Dioxide 31 mmol/L (22-29); Chloride 98 mmol/L (98-107); Estimated GFR-MDRD Greater than 90; Glucose 116 mg/dL (70-105); Sodium 136 mmol/L (136-145)
[2019-07-20] MEDS: MEROPENEM 1 GM/50 ML 1 GM in Premix Bag 1 BAG IVPB SCH ×3 (06:08→21:50)
[2019-07-20 06:11] LABS: Band 5 % (5-11); Hemoglobin 9.3 g/dL (14.0-18.0); Lymphocytes 7 % (21-51); MDiff Complete? YES; Mean Corpuscular HGB CONC 33.5 g/dL (32.0-36.0); Mean Corpuscular Hemoglobin 32.3 pg (27.0-31.0); Mean Corpuscular Volume 96.5 fL (78.0-98.0); Mean Platelet Volume 5.7 fL (7.4-10.4); Monocytes 9 % (0-10); Neutrophil 79 % (42-75); Platelet Count 642 thou/uL (130-400); Platelet Morphology Comment Appears Increased; RBC Morphology Normal; Red Blood Cell (RBC) Count 2.88 mill/uL (4.70-6.10); White Blood Cell (WBC) Count 22.8 thou/uL (4.8-10.8)
[2019-07-20] MEDS: Vancomycin HCl 1.75 GM in Sodium Chloride 0.9% 500 ML IVPB SCH (06:22)
[2019-07-20] MEDS: Nadolol 40 MG TAB PO SCH (07:40)
[2019-07-20] MEDS: Enoxaparin Sodium 40 MG/0.4 ML SYRINGE SC SCH (08:19)
[2019-07-20] MEDS: Furosemide 40 MG TAB PO SCH (08:21)
[2019-07-20] MEDS: Spironolactone 25 MG TAB PO SCH (08:22)
[2019-07-20] MEDS: Famotidine/PF 20 mg/2ml Vial SLOW IVP SCH ×2 (08:23→20:09)
[2019-07-20] MEDS: Morphine 4 MG/ML VIAL SLOW IVP PRN (10:38)
--- NOTE | 2019-07-20 11:14 | PDOC.HOSPP ---
- Subjective Encounter Date: 07/20/19 Encounter Time: 10:15 Subjective: pt up in bed no complains - Objective Vital Signs & Weight: Vital Signs (12 hours) Temp Pulse Resp BP BP Pulse Ox 07/20/19 07:39 98.8 F 90 20 110/75 98 07/20/19 04:00 98.0 F 94 18 124/81 94 L 07/20/19 00:00 98.4 F 97 18 119/74 94 L Weight Admit Weight 198 lb 5 oz Weight 198 lb 5 oz I&O: 07/19/19 07/20/19 07/21/19 06:59 06:59 06:59 Intake Total 600 Balance 600 Result Diagrams: 07/20/19 04:51 07/20/19 04:51 Hospitalist ROS - Review of Systems Respiratory: denies: cough, dry, shortness of breath, hemoptysis, SOB with excertion, pleuritic pain, sputum, wheezing, other Cardiovascular: denies: chest pain, palpitations, orthopnea, paroxysmal noc. dyspnea, edema, light headedness, other Gastrointestinal: denies: nausea, vomiting, abdominal pain, diarrhea, constipation, melena, hematochezia, other - Medication Medications: Active Medications Generic Name Dose Route Start Last Admin Trade Name Freq PRN Reason Stop Dose Admin Enoxaparin Sodium 40 mg 07/16/19 09:00 07/20/19 08:19 Lovenox SC Not Given 0900 ARCHIE Famotidine 20 mg 07/15/19 21:00 07/20/19 08:23 Pepcid SLOW IVP 20 mg BID ARCHIE Administration Furosemide 40 mg 07/18/19 07:30 07/20/19 08:21 Lasix PO 40 mg DAILY-AC ARCHIE Administration Meropenem 1 gm/ Device 50 mls @ 100 mls/hr 07/16/19 14:00 07/20/19 06:08 IVPB 50 mls Q8HR ARCHIE Administration Vancomycin HCl 1.75 gm/ Sodium 500 mls @ 250 mls/hr 07/17/19 17:00 07/20/19 06:22 Chloride IVPB 500 mls 0500,1700 ARCHIE Administration Morphine Sulfate 4 mg 07/15/19 14:03 07/20/19 10:38 Morphine SLOW IVP 4 mg Q4H PRN Administration Mild-Moderate Pain (1-5) Nadolol 40 mg 07/16/19 09:00 07/20/19 07:40 Corgard PO Not Given DAILY ARCHIE Oxycodone HCl 5 mg 07/15/19 14:34 07/20/19 08:21 Oxycodone Ir PO 5 mg Q6H PRN Administration Pain Sodium Chloride 10 ml 07/19/19 21:00 07/20/19 07:40 Flush - Normal Saline IVF Not Given Q12HR ARCHIE Spironolactone 25 mg 07/18/19 08:00 07/20/19 08:22 Aldactone PO 25 mg QAM-WM ARCHIE Administration Zolpidem Tartrate 10 mg 07/16/19 01:40 07/19/19 22:46 Ambien PO 10 mg HS PRN Administration Insomnia - Exam Neck: negative: supple, symmetric, no JVD, no thyromegaly, no lymphadenopathy, no carotid bruit, JVD Heart: negative: RRR, no murmur, no gallops, no rubs, normal peripheral pulses, irregular, diminshed peripheral pulses, murmur present, II/IV, III/IV Respiratory: negative: CTAB, no wheezes, no rales, no ronchi, normal chest expansion, no tachypnea, normal percussion, rales, rhonchi, tachypneic, wheezes Hosp A/P (1) Left inguinal pain Code(s): R10.32 - LEFT LOWER QUADRANT PAIN Status: Acute (2) Leukocytosis Code(s): D72.829 - ELEVATED WHITE BLOOD CELL COUNT, UNSPECIFIED Status: Acute (3) Pseudocyst of pancreas Code(s): K86.3 - PSEUDOCYST OF PANCREAS Status: Acute (4) Pancreatitis Code(s): K85.90 - ACUTE PANCREATITIS WITHOUT NECROSIS OR INFECTION, UNSP Status: Acute (5) Alcoholism Code(s): F10.20 - ALCOHOL DEPENDENCE, UNCOMPLICATED Status: Acute (6) Testicle tenderness Code(s): N50.9 - DISORDER OF MALE GENITAL ORGANS, UNSPECIFIED Status: Acute - Plan spoke with ID will change abx to meropenam for now. will monitor. may consider getting cx from pseudocyst. will continue iv fluids. He has been eating well. 07/[address] guided draining of pseudocyst. will await cx. he still has leukocytosis. ? need vanco. will add id. 07/18 will get testicular ultrasound since i have been examining his scrotum for the past couple days and no erythema noted but he has significant erythema. 07/19 spoke with gi and we will see how he does after his procedure. If his wbc does not improve we will transfer him. will continue abx. He did have some hematuria today. will monitor. 07/20 s/p drainage from left testicular abscess. cx pending. wound care consulted for dressing. his wbc have improved.
--- NOTE | 2019-07-20 15:24 | PRG ---
DATE OF SERVICE: 07/20/2019 REASON FOR CONSULTATION: Pancreatitis with complications including pancreatic pseudocyst extending to the iliopsoas muscle. SUBJECTIVE: The patient underwent scrotal abscess irrigation and drainage yesterday and has had a significant improvement in his lower abdominal pain/perineal symptoms. He has been able to get out of bed today and ambulate with some increased pain, but much improved when compared to previous. Otherwise, he states that he is able to tolerate oral intake well with no problems or complaints. He no longer has any symptoms of early satiety as well. Currently, he denies any nausea, vomiting, fevers, chills, abdominal pain, dysphagia, odynophagia, or GI bleeding. OBJECTIVE: VITAL SIGNS: Temperature 98.1, pulse 100, blood pressure 115/74, respiratory rate 16, saturating 96% on room air. GENERAL: The patient was sitting up in bed, in no acute distress. Alert and oriented x4. CARDIOVASCULAR: Regular rate and rhythm. RESPIRATORY: Clear to auscultation bilaterally. ABDOMEN: Normoactive bowel sounds. Soft, nontender, nondistended. Mild tenderness to palpation along the pubic bone. EXTREMITIES: No cyanosis, clubbing, or edema. LABORATORY DATA: CBC with a white blood cell count of 22.8, hemoglobin 9.3, hematocrit 27.8, platelets 642. Chemistry with a sodium of 136, potassium 4, chloride 98, CO2 of 31, BUN 11, creatinine 0.83, glucose 116. IMAGING DATA: The patient underwent periscrotal abscess incision and drainage on July 19, 2019, with purulent material drained from this abscess. Probing incision demonstrated communication with the left inguinal area, but there was no communication noted to be superior to the inguinal region and did not appear to communicate with any intraabdominal region. ASSESSMENT AND PLAN: 1. Pancreatic pseudocyst. The patient is presenting with a recent bout of acute pancreatitis, that was complicated by pseudocyst formation. This seems to be extending down into the mid abdomen with possible involvement of the iliopsoas muscle. Per periscrotal abscess drainage yesterday, the pseudocyst does not appear to be in continuity with the scrotum or inguinal region that would contribute to his perineal symptoms at this time. CT-guided aspiration of the pseudocyst fluid has been positive for coag-negative staph with an extremely low colony count, making the likelihood of skin contamination more likely. 2. Severe pancreatitis, resolved with no further abdominal pain. 3. Iliopsoas inflammation. The patient initially presented with CT findings consistent with inflammation of the iliopsoas muscle secondary to extension of the pancreatic pseudocyst. However, the patient is clinically doing better after drainage of the scrotal abscess with significant symptoms from iliopsoas involvement unclear at this time. I would continue to treat the patient here and would have the patient follow up in the GI Clinic as an outpatient prior to transferring the patient down to [place] for endoscopic ultrasound with cystogastrostomy. 4. Scrotal abscess. The patient underwent incision and drainage of the scrotal abscess yesterday and has had significant improvement in his symptoms with no appearance of continuity with the intraabdominal cavity. At this time, the extension of the pancreatic pseudocyst to the scrotum is highly unlikely and would further lend credence to the fact that the pseudocyst is not currently causing any symptoms. We will sign off at this time. I would recommend having the patient followup in the GI clinic in 2 weeks after discharge for further evaluation of this pancreatic pseudocyst and possible outpatient evaluation with endoscopic ultrasound at that time. Please call with any additional questions. Job ID: [id number]
[2019-07-20 16:20] LABS: Vancomycin, Trough 25.7 ug/mL
--- NOTE | 2019-07-20 18:53 | PRG ---
DATE OF SERVICE: 07/20/2019 SUBJECTIVE: Mr. Herbert is doing well. Wound care changed his dressing this morning. The patient has ambulated some and his dressing actually came out. He was somewhat concerned about this. No fever or chills. Overall, he is feeling better. No complaints. OBJECTIVE: VITAL SIGNS: Temperature is 98.1, pulse 90 to 100, respirations 16, blood pressure 115/74, oxygen saturation 96% on room air. GENERAL: He is awake and alert, in no apparent distress. CARDIOVASCULAR: Regular rate and rhythm. PULMONARY: Breathing unlabored. ABDOMEN: Soft, nontender/nondistended. No masses or organomegaly. No suprapubic tenderness to palpation. No CVA tenderness. GENITOURINARY: Left periscrotal incision, open, with minimal surrounding erythema and induration. No fluctuance. Small amount of purulent drainage from the wound. 1+ penoscrotal edema. LABORATORY DATA: White blood cell count 26.0, hemoglobin 9.8, hematocrit 29.1, platelets 645. Sodium 136, potassium 4.0, chloride 98, bicarb 31, BUN 11, creatinine 0.83. ASSESSMENT: A 54-year-old male, postop day #1, status post incision and drainage of left periscrotal abscess. PLAN: He is doing well. Continue b.i.d. dressing changes. Wound care to perform dressing change in the morning and nursing can perform evening dressing change with gauze packing. The patient will need to be educated on dressing changes to be performed at home. Job ID: [id number]
[2019-07-20] MEDS: Zolpidem Tartrate 5 MG TAB PO PRN (22:25)
[2019-07-21] MEDS: oxyCODONE 5 MG TAB PO PRN ×2 (04:35→20:34)
[2019-07-21] MEDS: MEROPENEM 1 GM/50 ML 1 GM in Premix Bag 1 BAG IVPB SCH ×3 (05:42→21:25)
[2019-07-21] MEDS: Furosemide 40 MG TAB PO SCH (08:42)
[2019-07-21] MEDS: Spironolactone 25 MG TAB PO SCH (08:42)
[2019-07-21] MEDS: Nadolol 40 MG TAB PO SCH (08:43)
[2019-07-21] MEDS: Enoxaparin Sodium 40 MG/0.4 ML SYRINGE SC SCH (08:43)
[2019-07-21] MEDS: Famotidine/PF 20 mg/2ml Vial SLOW IVP SCH ×2 (08:43→20:35)
--- NOTE | 2019-07-21 10:51 | PDOC.HOSPP ---
- Subjective Encounter Date: 07/21/19 Encounter Time: 10:48 - Objective Vital Signs & Weight: Vital Signs (12 hours) Temp Pulse Resp BP Pulse Ox 07/21/19 08:20 95 07/21/19 07:39 98.2 F 95 18 128/85 07/21/19 07:36 98.1 F 83 16 108/73 95 07/21/19 03:47 97.7 F 105 H 16 130/81 93 L 07/21/19 00:00 98.8 F 100 16 110/75 96 Weight Admit Weight 198 lb 5 oz Weight 198 lb 5 oz I&O: 07/20/19 07/21/19 07/22/19 06:59 06:59 06:59 Intake Total 600 2450 Balance 600 2450 Result Diagrams: 07/20/19 04:51 07/20/19 04:51 Additional Labs: much improved, some residual L groin pain Hospitalist ROS - Medication Medications: Active Medications Generic Name Dose Route Start Last Admin Trade Name Freq PRN Reason Stop Dose Admin Enoxaparin Sodium 40 mg 07/16/19 09:00 07/21/19 08:43 Lovenox SC Not Given 0900 ARCHIE Famotidine 20 mg 07/15/19 21:00 07/21/19 08:43 Pepcid SLOW IVP 20 mg BID ARCHIE Administration Furosemide 40 mg 07/18/19 07:30 07/21/19 08:42 Lasix PO 40 mg DAILY-AC ARCHIE Administration Meropenem 1 gm/ Device 50 mls @ 100 mls/hr 07/16/19 14:00 07/21/19 05:42 IVPB 50 mls Q8HR ARCHIE Administration Morphine Sulfate 4 mg 07/15/19 14:03 07/20/19 10:38 Morphine SLOW IVP 4 mg Q4H PRN Administration Mild-Moderate Pain (1-5) Nadolol 40 mg 07/16/19 09:00 07/21/19 08:43 Corgard PO 40 mg DAILY ARCHIE Administration Oxycodone HCl 5 mg 07/15/19 14:34 07/21/19 04:35 Oxycodone Ir PO 5 mg Q6H PRN Administration Pain Sodium Chloride 10 ml 07/19/19 21:00 07/21/19 08:43 Flush - Normal Saline IVF 10 ml Q12HR ARCHIE Administration Spironolactone 25 mg 07/18/19 08:00 07/21/19 08:42 Aldactone PO 25 mg QAM-WM ARCHIE Administration Zolpidem Tartrate 10 mg 07/16/19 01:40 07/20/19 22:25 Ambien PO 10 mg HS PRN Administration Insomnia - Exam General Appearance: awake alert Neck: no JVD Heart: RRR Respiratory: CTAB Gastrointestinal: soft, normal bowel sounds Extremities: no edema Hosp A/P (1) Scrotal abscess Code(s): N49.2 - INFLAMMATORY DISORDERS OF SCROTUM Status: Acute (2) Pseudocyst of pancreas Code(s): K86.3 - PSEUDOCYST OF PANCREAS Status: Acute (3) Alcoholism Code(s): F10.20 - ALCOHOL DEPENDENCE, UNCOMPLICATED Status: Acute - Plan cont wound care cont iv antibx cont analgesics
[2019-07-21 16:41] LABS: Vancomycin, Random 6.9 ug/mL (See Comment)
[2019-07-21] MEDS: Vancomycin HCl 1.25 GM in Sodium Chloride 0.9% 250 ML 250 ML IVPB SCH (18:24)
[2019-07-22] MEDS: Morphine 4 MG/ML VIAL SLOW IVP PRN ×2 (02:11→16:34)
[2019-07-22] MEDS: Vancomycin HCl 1.25 GM in Sodium Chloride 0.9% 250 ML 250 ML IVPB SCH ×2 (04:28→16:30)
[2019-07-22] MEDS: MEROPENEM 1 GM/50 ML 1 GM in Premix Bag 1 BAG IVPB SCH ×3 (06:34→21:34)
[2019-07-22] MEDS: Nadolol 40 MG TAB PO SCH (08:18)
[2019-07-22] MEDS: Spironolactone 25 MG TAB PO SCH (08:18)
[2019-07-22] MEDS: Furosemide 40 MG TAB PO SCH (08:19)
[2019-07-22] MEDS: Famotidine/PF 20 mg/2ml Vial SLOW IVP SCH ×2 (08:20→20:06)
[2019-07-22] MEDS: Enoxaparin Sodium 40 MG/0.4 ML SYRINGE SC SCH (08:25)
--- NOTE | 2019-07-22 09:31 | PDOC.HOSPP ---
- Subjective Encounter Date: 07/22/19 Encounter Time: 09:22 Subjective: no fever, etc - Objective Vital Signs & Weight: Vital Signs (12 hours) Temp Pulse Resp BP Pulse Ox 07/22/19 07:20 97.8 F 83 16 120/78 95 Weight Admit Weight 198 lb 5 oz Weight 198 lb 5 oz I&O: 07/21/19 07/22/19 07/23/19 06:59 06:59 06:59 Intake Total 2450 2970 Balance 2450 2970 Result Diagrams: 07/20/19 04:51 07/20/19 04:51 Hospitalist ROS - Medication Medications: Active Medications Generic Name Dose Route Start Last Admin Trade Name Freq PRN Reason Stop Dose Admin Enoxaparin Sodium 40 mg 07/16/19 09:00 07/22/19 08:25 Lovenox SC Not Given 0900 ARCHIE Famotidine 20 mg 07/15/19 21:00 07/22/19 08:20 Pepcid SLOW IVP 20 mg BID ARCHIE Administration Furosemide 40 mg 07/18/19 07:30 07/22/19 08:19 Lasix PO 40 mg DAILY-AC ARCHIE Administration Meropenem 1 gm/ Device 50 mls @ 100 mls/hr 07/16/19 14:00 07/22/19 06:34 IVPB 50 mls Q8HR ARCHIE Administration Vancomycin HCl 1.25 gm/ Sodium 250 mls @ 166.667 mls/hr 07/21/19 17:00 04:28 Chloride IVPB 250 mls 0500,1700 ARCHIE Administration Morphine Sulfate 4 mg 07/15/19 14:03 07/22/19 02:11 Morphine SLOW IVP 4 mg Q4H PRN Administration Mild-Moderate Pain (1-5) Nadolol 40 mg 07/16/19 09:00 07/22/19 08:18 Corgard PO 40 mg DAILY ARCHIE Administration Oxycodone HCl 5 mg 07/15/19 14:34 07/21/19 20:34 Oxycodone Ir PO 5 mg Q6H PRN Administration Pain Sodium Chloride 10 ml 07/19/19 21:00 07/21/19 20:35 Flush - Normal Saline IVF 10 ml Q12HR ARCHIE Administration Spironolactone 25 mg 07/18/19 08:00 07/22/19 08:18 Aldactone PO 25 mg QAM-WM ARCHIE Administration Zolpidem Tartrate 10 mg 07/16/19 01:40 07/20/19 22:25 Ambien PO 10 mg HS PRN Administration Insomnia - Exam Neck: no JVD Heart: RRR, no murmur Respiratory: CTAB, no wheezes Gastrointestinal: soft, normal bowel sounds Gastrointestinal - other findings: R scrotal incision draining copious pus Extremities: no edema Hosp A/P (1) Scrotal abscess Code(s): N49.2 - INFLAMMATORY DISORDERS OF SCROTUM Status: Acute (2) Pseudocyst of pancreas Code(s): K86.3 - PSEUDOCYST OF PANCREAS Status: Acute (3) Alcoholism Code(s): F10.20 - ALCOHOL DEPENDENCE, UNCOMPLICATED Status: Acute (4) Leukocytosis Code(s): D72.829 - ELEVATED WHITE BLOOD CELL COUNT, UNSPECIFIED Status: Acute - Plan cont wound care, to refer for wound vac cont iv antibx, discuss with ID cont analgesiccbc- path to review
[2019-07-22 10:02] LABS: Hemoglobin 9.9 g/dL (14.0-18.0); Mean Corpuscular HGB CONC 33.4 g/dL (32.0-36.0); Mean Corpuscular Hemoglobin 32.5 pg (27.0-31.0); Mean Corpuscular Volume 97.2 fL (78.0-98.0); Mean Platelet Volume 5.5 fL (7.4-10.4); Platelet Count 741 thou/uL (130-400); Red Blood Cell (RBC) Count 3.04 mill/uL (4.70-6.10); White Blood Cell (WBC) Count 17.7 thou/uL (4.8-10.8)
[2019-07-22 10:48] LABS: Band 6 % (5-11); Eosinophils 1 % (0-10); Lymphocytes 9 % (21-51); MDiff Complete? YES; Monocytes 9 % (0-10); Myelocyte 1 % (0-0); Neutrophil 74 % (42-75); Platelet Morphology Comment Appears Increased; Polychromasia SLIGHT = 2-3 cells (100X) (0-2/hpf)
--- NOTE | 2019-07-22 10:54 | PRG ---
DATE OF SERVICE: 07/22/2019 SUBJECTIVE: Patient overall is doing well. They are performing b.i.d. wet-to-dry dressing changes. No fevers. Minimal pain. He continues to have significant leukocytosis. He has no other complaints. OBJECTIVE: VITAL SIGNS: Temperature is 97.8, pulse 83, respirations 16, oxygen saturation 95% on room air, blood pressure 120/70. GENERAL: He is awake and alert, no apparent distress. CARDIOVASCULAR: Regular rate and rhythm. PULMONARY: Breathing unlabored. ABDOMEN: Soft, nontender/nondistended. No masses or organomegaly. No suprapubic tenderness to palpation. No CVA tenderness. GENITOURINARY: Minimal penoscrotal edema. No erythema/induration/fluctuance. Left periscrotal wound with copious amount of purulent drainage. Examination of the wound with wound packing removal demonstrates a cephalad tracking but no communication with the abdominal cavity. NEUROLOGIC: No focal deficits. EXTREMITIES: Warm and well perfused. No edema. LABORATORY DATA: White blood cell count 17.7, hemoglobin 9.9, hematocrit 29.5, platelets 741. Microbiology, cultures negative other than coag negative Staph from the pancreatic pseudocyst fluid. ASSESSMENT: A 54-year-old male with pancreatic pseudocyst and scrotal abscess status post incision and drainage. PLAN: The patient's dressing was changed today. He continues to have a very large amount of purulent drainage from this wound. This was irrigated out. The wound was examined. It does not appear to communicate. There is complete resolution of erythema and induration surrounding the wound. We will discuss wound VAC with Wound Care as this may be more effective than his current wet-to-dry dressing changes. Job ID: [id number]
[2019-07-22] MEDS: oxyCODONE 5 MG TAB PO PRN ×2 (11:10→20:06)
[2019-07-22] MEDS: Zolpidem Tartrate 5 MG TAB PO PRN (21:40)
[2019-07-23 05:22] LABS: Vancomycin, Trough 14.6 ug/mL
[2019-07-23] MEDS: Vancomycin HCl 1.25 GM in Sodium Chloride 0.9% 250 ML 250 ML IVPB SCH ×2 (05:28→16:39)
[2019-07-23] MEDS: MEROPENEM 1 GM/50 ML 1 GM in Premix Bag 1 BAG IVPB SCH ×3 (07:15→22:05)
[2019-07-23] MEDS: Famotidine/PF 20 mg/2ml Vial SLOW IVP SCH ×2 (08:24→20:19)
[2019-07-23] MEDS: Furosemide 40 MG TAB PO SCH (08:24)
[2019-07-23] MEDS: Nadolol 40 MG TAB PO SCH (08:24)
[2019-07-23] MEDS: Spironolactone 25 MG TAB PO SCH (08:24)
[2019-07-23] MEDS: Enoxaparin Sodium 40 MG/0.4 ML SYRINGE SC SCH (08:25)
[2019-07-23] MEDS: oxyCODONE 5 MG TAB PO PRN ×2 (08:26→16:39)
[2019-07-23] MEDS: Morphine 4 MG/ML VIAL SLOW IVP PRN ×2 (12:09→20:17)
--- NOTE | 2019-07-23 12:21 | PDOC.HOSPP ---
- Subjective Encounter Date: 07/23/19 Encounter Time: 12:19 Subjective: no fever, or significant pain - Objective Vital Signs & Weight: Vital Signs (12 hours) Temp Pulse Resp BP Pulse Ox 07/23/19 08:10 97.9 F 86 20 125/80 95 Weight Admit Weight 198 lb 5 oz Weight 198 lb 5 oz I&O: 07/22/19 07/23/19 07/24/19 06:59 06:59 06:59 Intake Total 2970 3300 Output Total 1000 Balance 2970 2300 Result Diagrams: 07/22/19 09:49 07/20/19 04:51 Hospitalist ROS - Medication Medications: Active Medications Generic Name Dose Route Start Last Admin Trade Name Freq PRN Reason Stop Dose Admin Enoxaparin Sodium 40 mg 07/16/19 09:00 07/23/19 08:25 Lovenox SC Not Given 0900 ARCHIE Famotidine 20 mg 07/15/19 21:00 07/23/19 08:24 Pepcid SLOW IVP 20 mg BID ARCHIE Administration Furosemide 40 mg 07/18/19 07:30 07/23/19 08:24 Lasix PO 40 mg DAILY-AC ARCHIE Administration Meropenem 1 gm/ Device 50 mls @ 100 mls/hr 07/16/19 14:00 07/23/19 07:15 IVPB 50 mls Q8HR ARCHIE Administration Vancomycin HCl 1.25 gm/ Sodium 250 mls @ 166.667 mls/hr 07/21/19 17:00 05:28 Chloride IVPB 250 mls 0500,1700 ARCHIE Administration Morphine Sulfate 4 mg 07/15/19 14:03 07/23/19 12:09 Morphine SLOW IVP 4 mg Q4H PRN Administration Mild-Moderate Pain (1-5) Nadolol 40 mg 07/16/19 09:00 07/23/19 08:24 Corgard PO 40 mg DAILY ARCHIE Administration Oxycodone HCl 5 mg 07/15/19 14:34 07/23/19 08:26 Oxycodone Ir PO 5 mg Q6H PRN Administration Pain Sodium Chloride 10 ml 07/19/19 21:00 07/23/19 08:26 Flush - Normal Saline IVF 10 ml Q12HR ARCHIE Administration Sodium Chloride 10 ml 07/19/19 14:07 07/22/19 11:14 Flush - Normal Saline IVF 10 ml PRN PRN Administration Saline Flush Spironolactone 25 mg 07/18/19 08:00 07/23/19 08:24 Aldactone PO 25 mg QAM-WM ARCHIE Administration Zolpidem Tartrate 10 mg 07/16/19 01:40 07/22/19 21:40 Ambien PO 10 mg HS PRN Administration Insomnia - Exam Neck: no JVD Heart: RRR, no murmur Respiratory: CTAB Gastrointestinal: soft, non-tender, normal bowel sounds Extremities: no edema Hosp A/P (1) Scrotal abscess Code(s): N49.2 - INFLAMMATORY DISORDERS OF SCROTUM Status: Acute (2) Pseudocyst of pancreas Code(s): K86.3 - PSEUDOCYST OF PANCREAS Status: Acute (3) Alcoholism Code(s): F10.20 - ALCOHOL DEPENDENCE, UNCOMPLICATED Status: Acute (4) Leukocytosis Code(s): D72.829 - ELEVATED WHITE BLOOD CELL COUNT, UNSPECIFIED Status: Acute - Plan cont wound care, to refer for wound vac cont iv antibx, discuss with ID cbc- wbc declining arranging outpt care
--- NOTE | 2019-07-23 17:08 | PRG ---
DATE OF SERVICE: 07/23/2019 SUBJECTIVE: The patient had a scrotal I and D and has a negative pressure dressing there. Urologist could not find a communication. He is feeling overall much improved. Particularly, the abdominal pain that was quite intense before now is resolved, and he has not had diarrhea. No respiratory symptoms. He has been afebrile for a long time now. All other vital signs are normal. OBJECTIVE: GENERAL: Awake, alert, oriented. LUNGS: Clear. HEART: S1 and S2. Regular rate. ABDOMEN: Soft, not tender. Negative pressure dressing to the left side of his scrotal sac. No inflammatory changes noted. LABORATORY DATA: White cell count is at 17.7, hemoglobin 9.9, platelets 741. Sodium 136 creatinine 0.83. All the cultures not very remarkable with coagulase-negative Staph and skin yvonne including the culture from the pseudocyst aspirate and scrotal cultures. ASSESSMENT AND DISCUSSION: Acute pancreatitis, alcoholism, pseudocyst formation superimposed infection likely extension to retroperitoneal area and then all the way toward the scrotum. Even though a microscopic communication was not found, that is the likely scenario. Frequently those will not be visible with the naked eye, and a valve mechanism may form that impede demonstration of overt communication with higher levels of the retroperitoneal area. We have organisms that may not be the true pathogen, and my recommendation is to continue the meropenem and vancomycin. He is receiving those since the and the endpoint will be normalization of the white cell count and then follow up the CT scan to make sure that the retroperitoneal collection has resolved as well, specifically the iliopsoas collection. Follow up C-reactive protein as well, probably another 2 to 3 weeks of treatment should suffice, but we will see. Job ID: [id number]
[2019-07-23] MEDS: Zolpidem Tartrate 5 MG TAB PO PRN (22:06)
[2019-07-24] MEDS: Vancomycin HCl 1.25 GM in Sodium Chloride 0.9% 250 ML 250 ML IVPB SCH ×2 (05:11→17:57)
[2019-07-24] MEDS: MEROPENEM 1 GM/50 ML 1 GM in Premix Bag 1 BAG IVPB SCH ×3 (07:18→21:54)
[2019-07-24] MEDS: oxyCODONE 5 MG TAB PO PRN ×2 (07:18→17:57)
[2019-07-24] MEDS: Furosemide 40 MG TAB PO SCH (07:20)
[2019-07-24] MEDS: Spironolactone 25 MG TAB PO SCH (07:20)
--- NOTE | 2019-07-24 07:28 | PRG ---
DATE OF SERVICE: 07/23/2019 SUBJECTIVE: Mr. Herbert overall is doing well. He had a wound VAC placed. The patient is afebrile. White blood cell count has not yet returned today. He has no other complaints. OBJECTIVE: VITAL SIGNS: Temperature is 97.9, pulse 86, respirations 18, oxygen saturation 95% on room air, and blood pressure 125/80. GENERAL: He is awake and alert, in no apparent distress. CARDIOVASCULAR: Regular rate and rhythm. PULMONARY: Breathing unlabored. ABDOMEN: Soft, nontender/nondistended. No masses or organomegaly. No suprapubic tenderness to palpation. No CVA tenderness. GENITOURINARY: Resolved penoscrotal edema. A wound VAC in place over left periscrotal wound. No erythema/fluctuance/induration. EXTREMITIES: Warm and well perfused. No edema. ASSESSMENT: A 54-year-old male with left periscrotal abscess status post incision and drainage. PLAN: Wound VAC is in place. The patient will require home wound VAC and outpatient wound care. Clinically, he has improved. He can follow up with Urology as an outpatient in 2 weeks. Job ID: [id number]
[2019-07-24] MEDS: Nadolol 40 MG TAB PO SCH (09:32)
[2019-07-24] MEDS: Famotidine/PF 20 mg/2ml Vial SLOW IVP SCH ×2 (09:32→20:36)
[2019-07-24] MEDS: Enoxaparin Sodium 40 MG/0.4 ML SYRINGE SC SCH (09:32)
[2019-07-24] MEDS: Morphine 4 MG/ML VIAL SLOW IVP PRN ×2 (10:37→21:02)
--- NOTE | 2019-07-24 10:41 | PDOC.HOSPP ---
- Subjective Encounter Date: 07/24/19 Encounter Time: 10:39 Subjective: doing well - Objective Vital Signs & Weight: Vital Signs (12 hours) Temp Pulse Resp BP Pulse Ox 07/24/19 08:00 94 L 07/24/19 07:27 97.6 F 79 20 130/80 94 L Weight Admit Weight 198 lb 5 oz Weight 198 lb 5 oz I&O: 07/23/19 07/24/19 07/25/19 06:59 06:59 06:59 Intake Total 3300 2750 Output Total 1000 700 Balance 2300 2050 Result Diagrams: 07/22/19 09:49 07/20/19 04:51 Hospitalist ROS - Medication Medications: Active Medications Generic Name Dose Route Start Last Admin Trade Name Freq PRN Reason Stop Dose Admin Enoxaparin Sodium 40 mg 07/16/19 09:00 07/24/19 09:32 Lovenox SC Not Given 0900 ARCHIE Famotidine 20 mg 07/15/19 21:00 07/24/19 09:32 Pepcid SLOW IVP 20 mg BID ARCHIE Administration Furosemide 40 mg 07/18/19 07:30 07/24/19 07:20 Lasix PO 40 mg DAILY-AC ARCHIE Administration Meropenem 1 gm/ Device 50 mls @ 100 mls/hr 07/16/19 14:00 07/24/19 07:18 IVPB 50 mls Q8HR ARCHIE Administration Vancomycin HCl 1.25 gm/ Sodium 250 mls @ 166.667 mls/hr 07/21/19 17:00 05:11 Chloride IVPB 250 mls 0500,1700 ARCHIE Administration Morphine Sulfate 4 mg 07/15/19 14:03 07/23/19 20:17 Morphine SLOW IVP 4 mg Q4H PRN Administration Mild-Moderate Pain (1-5) Nadolol 40 mg 07/16/19 09:00 07/24/19 09:32 Corgard PO 40 mg DAILY ARCHIE Administration Oxycodone HCl 5 mg 07/15/19 14:34 07/24/19 07:18 Oxycodone Ir PO 5 mg Q6H PRN Administration Pain Sodium Chloride 10 ml 07/19/19 21:00 07/24/19 09:43 Flush - Normal Saline IVF 10 ml Q12HR ARCHIE Administration Sodium Chloride 10 ml 07/19/19 14:07 07/22/19 11:14 Flush - Normal Saline IVF 10 ml PRN PRN Administration Saline Flush Spironolactone 25 mg 07/18/19 08:00 07/24/19 07:20 Aldactone PO 25 mg QAM-WM ARCHIE Administration Zolpidem Tartrate 10 mg 07/16/19 01:40 07/23/19 22:06 Ambien PO 10 mg HS PRN Administration Insomnia - Exam Neck: no JVD Heart: RRR, no murmur Respiratory: CTAB Gastrointestinal: soft, normal bowel sounds Extremities: no edema Hosp A/P (1) Scrotal abscess Code(s): N49.2 - INFLAMMATORY DISORDERS OF SCROTUM Status: Acute (2) Pseudocyst of pancreas Code(s): K86.3 - PSEUDOCYST OF PANCREAS Status: Acute (3) Alcoholism Code(s): F10.20 - ALCOHOL DEPENDENCE, UNCOMPLICATED Status: Acute (4) Leukocytosis Code(s): D72.829 - ELEVATED WHITE BLOOD CELL COUNT, UNSPECIFIED Status: Acute - Plan wound vac cont iv antibx 2-3 weeks outpt tx arrangement in progress
[2019-07-24 16:35] LABS: Vancomycin, Trough 16.9 ug/mL
[2019-07-24] MEDS: Zolpidem Tartrate 5 MG TAB PO PRN (21:54)
[2019-07-25] MEDS: Vancomycin HCl 1.25 GM in Sodium Chloride 0.9% 250 ML 250 ML IVPB SCH ×2 (05:49→16:24)
[2019-07-25 07:37] VITALS: BP 126/77; TEMP 97.8
[2019-07-25] MEDS: MEROPENEM 1 GM/50 ML 1 GM in Premix Bag 1 BAG IVPB SCH ×2 (08:02→13:52)
[2019-07-25] MEDS: Nadolol 40 MG TAB PO SCH (08:03)
[2019-07-25] MEDS: Spironolactone 25 MG TAB PO SCH (08:04)
[2019-07-25] MEDS: Famotidine/PF 20 mg/2ml Vial SLOW IVP SCH (08:04)
[2019-07-25] MEDS: Furosemide 40 MG TAB PO SCH (08:04)
[2019-07-25] MEDS: Enoxaparin Sodium 40 MG/0.4 ML SYRINGE SC SCH (08:05)
[2019-07-25] MEDS: oxyCODONE 5 MG TAB PO PRN (08:16)
[2019-07-25 09:59] LABS: #Basophils 0.1 thou/uL (0.0-0.2); #Eosinphils 0.2 thou/uL (0.0-0.7); #Lymphocytes 1.8 thou/uL (1.20-3.40); #Neutrophils 9.8 thou/uL (1.40-6.50); %Basophils 0.7 % (0.0-1.0); %Eosinophils 1.6 % (0.0-10.0); %Lymphocytes 14.1 % (21.0-51.0); %Monocytes 7.5 % (0.0-10.0); %Neutrophils 76.1 % (42.0-75.0); Hemoglobin 10.4 g/dL (14.0-18.0); Mean Corpuscular HGB CONC 32.3 g/dL (32.0-36.0); Mean Corpuscular Volume 96.1 fL (78.0-98.0); Mean Platelet Volume 5.5 fL (7.4-10.4); Platelet Count 798 thou/uL (130-400); RBC Distribution Width 13.2 % (11.5-14.5); Red Blood Cell (RBC) Count 3.36 mill/uL (4.70-6.10); White Blood Cell (WBC) Count 12.8 thou/uL (4.8-10.8)
[2019-07-25 10:15] LABS: Anion Gap 12 mmol/L (10-20); BUN (Urea Nitrogen) 12 mg/dL (8.4-25.7); CRP (Inflammatory) 7.24 mg/dL (= or < 0.5); Calc. Creatinine Clearance 131 mL/min (70-130); Calcium 9.2 mg/dL (7.8-10.44); Carbon Dioxide 35 mmol/L (22-29); Chloride 93 mmol/L (98-107); Estimated GFR-MDRD Greater than 90; Glucose 133 mg/dL (70-105); Potassium 3.6 mmol/L (3.5-5.1); Sodium 136 mmol/L (136-145)
[2019-07-25] MEDS: Morphine 4 MG/ML VIAL SLOW IVP PRN (11:03)
--- NOTE | 2019-07-26 23:34 | DIS ---
DATE OF ADMISSION: 07/15/2019 DATE OF DISCHARGE: 07/25/2019 DISCHARGE DIAGNOSES: As of the following; 1. Left groin pain. 2. Testicular abscess. 3. Leukocytosis. 4. Pseudocyst of the pancreas, possible infectious. 5. History of pancreatitis. 6. History of alcohol abuse. HOSPITAL COURSE: The patient is a 54-year-old male, who initially presented to the hospital with left inguinal pain and was found to have a significant leukocytosis. He had initially no testicular pain. He was started on broad-spectrum antibiotics. Had a CT of abdomen and pelvis, which indicated a large pancreatic pseudocyst a fluid collection around the pancreas and also indicated that inflammatory changes were tracking down all the way to the left iliopsoas muscle. Initially, his pain was attributed to this. However, 2 days of the patient being on antibiotics, he started having significant erythema around his testicular and his pelvic area. At this time, we did a testicular ultrasound which indicated an abscess. He underwent incision and drainage of the periscrotal abscess. This was done by Urology. Prior to that, he also had a CT-guided aspiration of his left retroperitoneal pseudocyst. The left retroperitoneal pseudocyst indicated coagulase-negative Staph. However, his scrotum abscess was negative. No organism was noted. Infectious Disease also continues to follow him. The patient's white count actually improved after draining his scrotal abscess. Initially, the thoughts were that this pseudocyst was infected, which was possible tracking down into the scrotum. However, per the OR note, there was no communication noted from the superior to the inguinal region. However, the scrotum abscess culture was negative; it did not grow any bacteria. However, patient also was on meropenem and vancomycin during this episode. The patient was discharged home. He was applied a wound VAC and he will follow up as outpatient with Urology, also with GI and also with Infectious Disease. HOME MEDICATIONS: 1. Spironolactone 25 mg daily. 2. Pantoprazole 40 mg daily. 3. Nadolol 80 mg daily. 4. Lasix 40 mg daily. 5. Vancomycin 1.25 g twice a day. 6. Florastor 250 mg daily. 7. Meropenem 1 g q.8 hours as scheduled. PHYSICAL EXAMINATION: VITAL SIGNS: 97.8, 79, 20, 95% on room air, 126/77. GENERAL: He is awake, alert, and oriented x3. Does not appear in distress. CV: S1, S2 present. No murmurs, rubs, or gallops. ABDOMEN: Soft and nontender. Bowel sounds are present x2. Again, he will be discharged home. He will follow up with his primary and also Infectious Disease and also GI. TIME SPENT: Greater than 35 minutes was spent doing this discharge summary. Job ID: [id number]
--- NOTE | 2019-07-28 04:39 | PQF ---
S[employer] Land Manager Crystal Reports Winform ViewerPICEDDIE,JOVITA Nicholas ALEJANDROMIGUEL [id number] [facility] [id number] CLINICAL DOCUMENTATION CLARIFICATION FORM: POST DISCHARGE Addendum to original discharge summary date: ____ Late entry note date: __ DATE: 07/28/2019 ATTN:MIGUEL ALLEN Please exercise your independent, professional judgment in responding to the clarification form. Clinical indicators are provided on the bottom of this form for your review Please check appropriate box(s) to clarify if the following diagnosis has been ruled in or ruled out: Iliopsoas abscess (CDI/Coding list diagnosis here) [ ] Ruled in diagnosis [ ] Continue to treat [ ] Resolved [ ] Ruled out diagnosis [ ] Cannot rule out diagnosis [ ] Other diagnosis [x ] Unable to determine In addition, please specify: Present on Admission (POA): [ ] Yes [ ] No [ x] Unable to determine For continuity of documentation, please document condition throughout progress notes and discharge summary. Thank You. CLINICAL INDICATORS - SIGNS / SYMPTOMS / LABS Left groin pain - Documented in H&P on 07/15 by MIGUEL ALLEN Inguinal pain most likely from pseudocyst with phlegmonous changes and also causing inflammatory changes to his iliopsoas muscle - Documented in H&P on by MIGUEL ALLEN CT abdomen and pelvis showed new inflammatory changes tracking down the iliopsoas muscle all the way down th the left hip - Documented in Consultation report on 07/15 by Armando rasmussen Inflammatory process of the iliopsoas muscle causing severe pain in left groin and LLQ - Documented in Consultation report on 07/15 by Armando rasmussen RISK FACTORS Pseudocyst Pancreas - Documented in H&P on 07/15 by MIGUEL ALLEN Recurrent pancreatitis - Documented in H&P on 07/15 by MIGUEL ALLEN Vulva Abscess TREATMENTS he is being covered with antibiotics and has been changed from Zosyn to Meropenem - Documented in PNS on 07/[address] abdomen and pelvis I&D periscrotal abscess (This form is maintained as a part of the permanent medical record) 2014 [employer], [id number]. All Rights Reserved [email or web address] [not provided] MTDD
--- NOTE | 2019-07-28 04:57 | PQF ---
S[employer] Laundry Route Driver Crystal Reports Winform ViewerPICJOVITA MORGAN VALENTINO OLIVEIRA MD [id number] [facility] [id number] CLINICAL DOCUMENTATION CLARIFICATION FORM: POST DISCHARGE Addendum to original discharge summary date: ____ Late entry note date: __ DATE: 07/28/2019 ATTN: VALENTINO OLIVEIRA MD Please exercise your independent, professional judgment in responding to the clarification form. Clinical indicators are provided on the bottom of this form for your review Please check appropriate box(s): Procedure Approach for Scrotal Abscess [ ] I&D scrotal abscess External Approach [ ] I&D scrotal abscess Percutaneous Approach [ x] I&D scrotal abscess Open Approach [ ] Other procedure diagnosis [ ] Unable to determine For continuity of documentation, please document condition throughout progress notes and discharge summary. Thank You. CLINICAL INDICATORS - SIGNS / SYMPTOMS / LABS I&D - Documented in OP note by VALENTINO OLIVEIRA MD Examination revels the abscess to be periscrotal and not involving the scrotum itself - Documented in OP note by VALENTINO OLIVEIRA MD he was sterile prepped and draped in the lithotomy position - Documented in OP note by VALENTINO OLIVEIRA MD An incision was made in the periscrotal region on the left side - Documented in OP note by VALENTINO OLIVEIRA MD RISK FACTORS Purulent material drained from the incision - Documented in OP note by VALENTINO OLIVEIRA MD There is no communication noted to be superior to the inguinal region and it did not appear to communicate with any intraabdominal region - Documented in OP note by VALENTINO OLIVEIRA MD TREATMENTS: Copious irrigation was performed of the wound and wound was then packed - Documented in OP note by VALENTINO OLIVEIRA MD No complication [employer] Laundry Route Driver Crystal Reports Winform Viewer (This form is maintained as a part of the permanent medical record) 2014 [employer], [employer]. All Rights Reserved [email or web address] [not provided] MTDD
--- NOTE | 2019-07-30 22:35 | PQF ---
SAP Patient Portal Representative Crystal Reports Winform ViewerPICONE,MIGUEL CHAPA [id number] [facility] [id number] CLINICAL DOCUMENTATION CLARIFICATION FORM: POST DISCHARGE Addendum to original discharge summary date: ____ Late entry note date: __ DATE: 07/30/2019 ATTN: Kristopher Ortiz MD Please exercise your independent, professional judgment in responding to the clarification form. Clinical indicators are provided on the bottom of this form for your review Please check appropriate box(s) to clarify if the following diagnosis has been ruled in or ruled out: ___Peritonitis (CDI/Coding list diagnosis here) [ ] Ruled in diagnosis [ ] Continue to treat [ ] Resolved [ ] Ruled out diagnosis [ ] Cannot rule out diagnosis [ ] Other diagnosis [ ] Unable to determine In addition, please specify: Present on Admission (POA): [ ] Yes [ ] No [ ] Unable to determine For continuity of documentation, please document condition throughout progress notes and discharge summary. Thank You. CLINICAL INDICATORS - SIGNS / SYMPTOMS / LABS Pseudocyst formation and now appears to be ruptured pseudocyst with peritonitis on left side and extension into groin - Documented in Consult note on 07/17 by Angel Summers Given cephalosporin for possibility ofg spontaneous bacterial peritonitis - Documented in Consult note on 07/17 by Angel Summers Pseudocyst formation and now superimposed infection of the pseudocyst and maybe rupture or peritonitis - Documented in PNs on 07/17 by Angel Summers RISK FACTORS Vulva Abscess - Documented in H&P on 07/15 by MIGUEL ALLEN Recurrent Pancreatitis - Documented in H&P on 07/15 by MIGUEL ALLEN Pseudocyst pancreas - Documented in H&P on 07/15 by MIGUEL ALLEN TREATMENTS He is being covered with antibiotics and has been changed from Zosyn to meropenem - Documented in PNs on 07/[address] abdomen and pelvis (This form is maintained as a part of the permanent medical record) 2014 [employer], [employer]. All Rights Reserved [email or web address] [not provided] MTDD
--- NOTE | 2019-07-31 06:21 | PQF ---
S[employer] Software Crystal Reports Winform ViewerPICJOVITA MORGAN ALEJANDRO MIGUEL [id number] [facility] [id number] CLINICAL DOCUMENTATION CLARIFICATION FORM: POST DISCHARGE Addendum to original discharge summary date: ____ Late entry note date: __ DATE: 07/31/2019 ATTN: MIGUEL ALLEN Please exercise your independent, professional judgment in responding to the clarification form. Clinical indicators are provided on the bottom of this form for your review Please check appropriate box(s): [ ] Pancreatitis [ ] Acute [ ] Chronic [ ] Recurrent [ ] Alcohol induced [ x] Other diagnosis no pancreatitis [ ] Unable to determine In addition, please specify: Present on Admission (POA): [ ] Yes [x ] No [ ] Unable to determine For continuity of documentation, please document condition throughout progress notes and discharge summary. Thank You. CLINICAL INDICATORS - SIGNS / SYMPTOMS / LABS Hx of Pancreatics on 06/28 - Documented in H&P on 07/15 by MIGUEL ALLEN Recurrent pancreatitis his lipase is normal, however he does not have any abdominal pain or nausea or vomiting - Documented in H&P on 07/15 by MIGUEL ALLEN Acute pancreatitis 2/2 alcoholism with pseudocyst preformation - Documented in Consult note on 07/16 by MIGUEL ALLEN Recurrent acute severe pancreatitis complicated by renal failure and hypocalcemia 2/2 alcohol abuse - Documented in Consult note on 07/15 by MIGUEL ALLEN This acute pancreatitis is since resolved but he has had progressively enlarging pseudocyst -Documented in Consult note on 07/15 by MIGUEL ALLEN RISK FACTORS HTN Pseudocyst pancreas TREATMENT: CT abdomen and Pelvis He is being covered with antibiotics has been changed from Zosyn to Meropenem - Documented in PNs on 07/16 by Armando Spencer [employer] Crystal Reports Winform Viewer (This form is maintained as a part of the permanent medical record) 2014 [employer], [employer]. All Rights Reserved [email or web address] [not provided] MTDD
== END 2019-07-25 19:03 | disposition home or self-care (01) | DRG 717 ==
LOC: ERS 04:46 → T4-B 10:12
PROVIDERS: ADMIT Internal Medicine; ATTEND Internal Medicine
PROC: 0W9H3ZZ Drainage of Retroperitoneum, Percutaneous Approach (ICD-10-PCS; principal; 2019-07-17)
PROC: 02H633Z Insertion of Infusion Device into Right Atrium, Percutaneous Approach (ICD-10-PCS; 2019-07-18)
PROC: B548ZZA Ultrasonography of Superior Vena Cava, Guidance (ICD-10-PCS; 2019-07-18)
PROC: 0V950ZZ Drainage of Scrotum, Open Approach (ICD-10-PCS; 2019-07-19)
DX: N49.2 Inflammatory disorders of scrotum (principal); K85.20 Alcohol induced acute pancreatitis without necrosis or infection; K86.3 Pseudocyst of pancreas; L02.214 Cutaneous abscess of groin; K86.1 Other chronic pancreatitis; I10 Essential (primary) hypertension; K21.9 Gastro-esophageal reflux disease without esophagitis; Z98.890 Other specified postprocedural states; Z79.899 Other long term (current) drug therapy; D72.829 Elevated white blood cell count, unspecified; F10.20 Alcohol dependence, uncomplicated; N50.9 Disorder of male genital organs, unspecified; R63.0 Anorexia; Z68.27 Body mass index [BMI] 27.0-27.9, adult
CPT/HCPCS: 36415; 36569; 49020; 74177; 76870; 77012; 80048; 80053; 80202; 81003; 82150; 83605; 83690; 85007; 85025; 85027; 85060; 85610; 85730; 86140; 86850; 86900; 86901; 87040; 87070; 87205; 93970; 93976; 96365; 96375; C1751; J0696; J1644; J1650; J1885; J2185; J2250; J2270; J2405; J2543; J2704; J3010; J3370; J3490; J7050; Q9967; S0020; S0028

== ENCOUNTER 2019-08-22 11:43 | Inpatient (IN) | payer BC ==
[~2019-08-22 11:43] MED LIST: Iopamidol 370 76% 100 ML VIAL ONE; Magnevist 469MG/ML 20 ML VIAL ONE
[2019-08-22 12:49] LABS: #Lymphocytes 1.1 thou/uL (1.20-3.40); #Neutrophils 9.2 thou/uL (1.40-6.50); %Basophils 0.1 % (0.0-1.0); %Eosinophils 0.4 % (0.0-10.0); %Lymphocytes 9.6 % (21.0-51.0); %Monocytes 8.7 % (0.0-10.0); %Neutrophils 81.2 % (42.0-75.0); Hemoglobin 8.7 g/dL (14.0-18.0); Mean Corpuscular Volume 88.1 fL (78.0-98.0); Mean Platelet Volume 5.8 fL (7.4-10.4); Platelet Count 496 thou/uL (130-400); RBC Distribution Width 13.8 % (11.5-14.5); White Blood Cell (WBC) Count 11.3 thou/uL (4.8-10.8)
[2019-08-22] MEDS ORDERED: Morphine 4 MG/ML VIAL ONE (13:06)
[2019-08-22 13:12] LABS: ALT (SGPT) 11 U/L (8-55); AST (SGOT) 11 U/L (5-34); Albumin 3.7 g/dL (3.5-5.0); Alkaline Phosphatase 80 U/L (40-110); Anion Gap 14 mmol/L (10-20); BUN (Urea Nitrogen) 12 mg/dL (8.4-25.7); Bilirubin, Total 0.9 mg/dL (0.2-1.2); Calc. Creatinine Clearance 0 mL/min (70-130); Calcium 9.7 mg/dL (7.8-10.44); Carbon Dioxide 26 mmol/L (22-29); Chloride 101 mmol/L (98-107); Estimated GFR-MDRD 72; Globulin 4.2 g/dL (2.4-3.5); Glucose 105 mg/dL (70-105); Potassium 3.1 mmol/L (3.5-5.1); Protein, Total 7.9 g/dL (6.0-8.3); Sodium 138 mmol/L (136-145)
[2019-08-22] MEDS ORDERED: metroNIDAZOLE 250 MG TAB ONE (13:43)
--- NOTE | 2019-08-22 15:00 | MRI ---
EXAM: MRI Lumbar Spine W WO Con PROVIDED CLINICAL HISTORY: Lumbar pain COMPARISON: CT abdomen and pelvis 08/13/2019 FINDINGS: 5 lumbar vertebral bodies are assumed. Lumbar alignment appears normal. Vertebral body heights appear preserved. Intervertebral disc space heights are preserved. No focal concerning regional marrow signal abnormality is evident. There is no significant central canal or foraminal narrowing apparent throughout. Partially visualized multicystic rim-enhancing fluid collection within the retroperitoneum, as demonstrated on prior CT. The visualized extraspinal soft tissues appear otherwis e unremarkable. IMPRESSION: No significant central canal or foraminal narrowing apparent.
[2019-08-22 15:40] LABS: Bilirubin Negative (Negative); Blood, Urine Negative (Negative); Clarity Clear (Clear); Glucose, Urine (Dipstick) Normal (Negative); Leukocyte Negative Leu/uL (Negative); Nitrite Negative (Negative); Protein, Urine (Dipstick) Negative (Neg-Trace); Urobilinogen Normal mg/dL (Less than 2)
--- NOTE | 2019-08-22 16:14 | CT ---
EXAM: CT Abdomen Pelvis W Con PROVIDED CLINICAL HISTORY: Abdominal pain COMPARISON: CT 08/13/2019 FINDINGS: The visualized lung bases are free of significant opacity. Multiloculated peripancreatic and retroperitoneal fluid collections as previously described are redem onstrated. These appear predominantly not significantly changed. There is interval increase in size of the multiloculated fluid collection associated with the left psoas and iliacus muscles. It now chaka sures approximately 9 x 4.5 cm in greatest transverse dimensions at the level of the iliac wing, as compared to about 8.7 x 2.7 cm in greatest transverse dimensions at the similar level on the prior st udy. The solid abdominal organs demonstrate a stable CT appearance. There is no evidence for bowel obstruc tion. Fat-containing bilateral inguinal hernias right greater than left are redemonstrated. The osseous structures demonstrate no concerning lytic or blastic lesions. IMPRESSION: Multiloculated peripancreatic and retroperitoneal fluid collections are redemonstrated as described.
[2019-08-22] MEDS ORDERED: Ondansetron PF 4 MG/2 ML Vial IVP PRN (16:46)
[2019-08-22] MEDS ORDERED: Bisacodyl 5 MG TAB PO PRN (16:46)
[2019-08-22] MEDS ORDERED: Acetaminophen 325 MG TAB PO PRN (16:46)
[2019-08-22] MEDS ORDERED: Senokot S 8.6-50 MG TAB PO PRN (16:46)
[2019-08-22] MEDS ORDERED: MEROPENEM 1 GM/50 ML 1 GM in Premix Bag 1 BAG IVPB SCH (17:45)
[2019-08-22] MEDS ORDERED: Potassium Chloride 20 MEQ TAB PO SCH (18:30)
[2019-08-22] MEDS ORDERED: Morphine 2 MG/ML SYRINGE SLOW IVP PRN (20:45)
[2019-08-22] MEDS: Morphine 4 MG/ML VIAL SLOW IVP PRN (21:08)
[2019-08-22] MEDS: Famotidine 20 MG TAB PO SCH (21:09)
[2019-08-22 21:59] VITALS: BMI 26.6
[2019-08-22] MEDS ORDERED: Meropenem 1 GM in Sodium Chloride 0.9% 100 ML IVPB SCH (22:00)
--- NOTE | 2019-08-22 22:15 | HP ---
CHIEF COMPLAINT: Left hip pain and neck pain. HISTORY OF PRESENT ILLNESS: The patient is a very pleasant 54-year-old male, who was recently discharged from the hospital on 07/26, with testicular abscess and also pseudocyst of the pancreas and also a left psoas CT-guided aspiration. The patient stated that he finished his IV antibiotics on Sunday. He got his PICC line removed on Sunday. Sunday, he started oral antibiotics. The patient stated that since 08/12, he started noticing some pain around his left groin area which was very subtle initially, however, got more prominent as days went by. The patient denies any fevers or chills, any nausea, vomiting, or diarrhea. The patient states that he has good appetite, he feels well, no dysuria. The patient's wound VAC around his left testicular appears also stable and according to the patient's wound care that it has been healing quite well. PAST MEDICAL HISTORY: He has a history of GERD, hypertension, pancreatitis, also pseudocyst, also testicular abscess. PAST SURGICAL HISTORY: He has had a right rotator cuff repair and left extremity ankle repair. Also has had CT aspirated left psoas abscess and also had an incision and drainage of the periscrotal abscess. ALLERGIES: NO KNOWN DRUG ALLERGIES. MEDICATIONS: 1. Pantoprazole 40 mg daily. 2. Spironolactone 25 mg daily. 3. Nadolol 80 mg daily. 4. Lasix 40 mg daily. He is currently on Levaquin 750 mg daily and Flagyl 500 mg t.i.d. SOCIAL HISTORY: He is a former alcohol drinker. Currently denies any alcohol use. No smoking history. No recreational drug use. He is a full code. Lives with his . REVIEW OF SYSTEMS: All negative except for the ones mentioned above in the HPI. PHYSICAL EXAMINATION: VITAL SIGNS: Temperature of 98.1, respirations 16, pulse 78, blood pressure 127/77, 100% on room air. GENERAL: He is awake, alert, oriented, does not appear in any pain distress. HEENT: Normocephalic, atraumatic. No lymphadenopathy noted. Pupils equal and reactive to light. ABDOMEN: Soft and nontender. Bowel sounds present x2. EXTREMITIES: No edema. Pedal pulses are present x2. NEUROVASCULAR: No focal deficits noted. However, he does have some pain on raising his left lower extremity. He does have some pain on palpation to his lower left hip area. SKIN: He does have a wound VAC to his left testicle, which appears to be stable. LABORATORY RESULTS: Urine appears to be normal. Sodium of 138, potassium 3.1, BUN of 12, creatinine of 1.07. His BUN is 12, creatinine 1.07. CRP is 9.23. WBCs of 11.3, hemoglobin 8.7, hematocrit of 26.4, platelets are 496. He did have his MRI lumbar spine with and without contrast that did not indicate any significant central canal foraminal narrowing. He did have a CT of abdomen and pelvis with contrast which indicated multiloculated peripancreatic and retroperitoneal fluid collection are redemonstrated as described. However, there was an interval increase in the size of the multiloculated fluid collection associated with the left psoas and iliacus muscle, which is much more greater than what it was before. ASSESSMENT AND PLAN: The patient is a very pleasant 54-year-old male, who presents to the hospital with complaints of left groin pain. 1. Left groin pain, most likely secondary to recurrence of possible left psoas muscle abscess. We will start him on some meropenem. I will get blood cultures. I have already spoken with Infectious Disease. We will get a CT-guided aspiration of the abscess. Also, I am not sure if the recurrence of this is possibly the multiloculated peripancreatic fluid, which is the cause of all these fluid collections. We may consider getting GI also involved. The patient currently does not appear to be septic. He appears to be very comfortable and stable. 2. History of testicular abscess. We will consult Wound Care for his wound VAC change. 3. Anemia. We will continue to monitor. Trend his H and H. 4. Hypokalemia. We will replace his potassium. 5. Deep venous thrombosis prophylaxis. We will put the patient on SCDs. Job ID: [id number]
[2019-08-23] MEDS: MEROPENEM 1 GM/50 ML 1 GM in Premix Bag 1 BAG IVPB SCH ×3 (02:07→17:10)
[2019-08-23] MEDS: Morphine 4 MG/ML VIAL SLOW IVP PRN ×3 (02:17→10:49)
[2019-08-23 05:41] LABS: INR-International Normal Ratio 1.4; PTT 40.2 SEC (22.9-36.1); Prothrombin Time 16.7 SEC (12.0-14.7)
[2019-08-23 05:42] LABS: #Eosinphils 0.1 thou/uL (0.0-0.7); #Lymphocytes 1.3 thou/uL (1.20-3.40); #Monocytes 0.9 thou/uL (0.11-0.59); #Neutrophils 7.6 thou/uL (1.40-6.50); %Basophils 0.3 % (0.0-1.0); %Eosinophils 0.5 % (0.0-10.0); %Monocytes 9.2 % (0.0-10.0); %Neutrophils 77.1 % (42.0-75.0); Hemoglobin 8.1 g/dL (14.0-18.0); Mean Corpuscular HGB CONC 33.3 g/dL (32.0-36.0); Mean Corpuscular Hemoglobin 29.2 pg (27.0-31.0); Mean Corpuscular Volume 87.7 fL (78.0-98.0); Mean Platelet Volume 5.7 fL (7.4-10.4); Platelet Count 445 thou/uL (130-400); Red Blood Cell (RBC) Count 2.78 mill/uL (4.70-6.10); White Blood Cell (WBC) Count 9.8 thou/uL (4.8-10.8)
[2019-08-23 05:56] LABS: Anion Gap 11 mmol/L (10-20); BUN (Urea Nitrogen) 10 mg/dL (8.4-25.7); Calc. Creatinine Clearance 110 mL/min (70-130); Calcium 9.2 mg/dL (7.8-10.44); Carbon Dioxide 27 mmol/L (22-29); Chloride 101 mmol/L (98-107); Estimated GFR-MDRD 84; Glucose 107 mg/dL (70-105); Potassium 3.4 mmol/L (3.5-5.1); Sodium 136 mmol/L (136-145)
[2019-08-23] MEDS: Famotidine 20 MG TAB PO SCH ×2 (08:23→21:03)
[2019-08-23] MEDS: Spironolactone 25 MG TAB PO SCH (08:23)
[2019-08-23] MEDS: Saccharomyces boulardii 250 MG CAP PO SCH (08:23)
[2019-08-23] MEDS: Nadolol 40 MG TAB PO SCH (08:23)
[2019-08-23] MEDS ORDERED: Enoxaparin Sodium 40 MG/0.4 ML SYRINGE SC SCH (09:00)
[2019-08-23] MEDS ORDERED: traMADol HCl 50 MG TAB PO PRN (09:23)
[2019-08-23] MEDS ORDERED: Potassium Chloride 20 MEQ TAB PO SCH (09:30)
[2019-08-23] MEDS ORDERED: Midazolam HCl 2 mg/2 ml Vial ONE (09:30)
[2019-08-23] MEDS ORDERED: Fentanyl 100 MCG/2 ML VIAL ONE (09:30)
--- NOTE | 2019-08-23 10:40 | CT ---
CT-guided abscess drainage left retroperitoneum Conscious sedation: At least 30 minutes spent with the patient for conscious sedation. FINDINGS: After explaining the procedure and answering all questions, limited CT imaging was performe d. Sterile technique, buffered local anesthesia, CT guidance, conscious sedation, and a left lateral approach were used to carefully advance a 19-gauge trocar needle into the multiloculated shannan ection in the left retroperitoneum. Position was confirmed with CT. A 0.035 Amplatz placed to hold position. Tract was dilated to 8 Frenc h. An 8 [place] locking loop catheter was then carefully placed into the multiloculated fluid collection, placing as many sideholes as possible along the course of the multiple fluid collections. 2 additional sideholes were previously cut along the distal shaft of the catheter to maximize fluid aspiration and drainage. A total volume of 73 cc of purulence was aspirated. A portion sent to laboratory for analysis. The catheter was secured externally and left draining to gravity. Patient tolerated the procedure wel l and was returned in improved condition. IMPRESSION: Technically successful CT-guided left retroperitoneal abscess drainage. Pathology is pend ing.
--- NOTE | 2019-08-23 14:07 | PDOC.HOSPP ---
- Subjective Encounter Date: 08/23/19 Encounter Time: 11:30 Subjective: pt up in bed feels a lot better after the procedure. - Objective Vital Signs & Weight: Vital Signs (12 hours) Temp Pulse Resp BP BP Pulse Ox 08/23/19 10:40 97.9 F 89 18 110/72 97 08/23/19 08:23 98 08/23/19 07:53 97.8 F 78 17 129/79 98 08/23/19 04:21 97.9 F 83 20 112/72 95 Weight Weight 191 lb 8 oz I&O: 08/22/19 08/23/19 08/24/19 06:59 06:59 06:59 Intake Total 900 Balance 900 Result Diagrams: 08/23/19 05:18 08/23/19 05:18 Hospitalist ROS - Review of Systems Cardiovascular: denies: chest pain, palpitations, orthopnea, paroxysmal noc. dyspnea, edema, light headedness, other Gastrointestinal: denies: nausea, vomiting, abdominal pain, diarrhea, constipation, melena, hematochezia, other Genitourinary: denies: dysuria, frequency, incontinence, hematuria, retention, other - Medication Medications: Active Medications Generic Name Dose Route Start Last Admin Trade Name Freq PRN Reason Stop Dose Admin Famotidine 20 mg 08/22/19 21:00 08/23/19 08:23 Pepcid PO 20 mg BID ARCHIE Administration Meropenem 1 gm/ Device 50 mls @ 100 mls/hr 08/23/19 02:00 08/23/19 11:18 IVPB 50 mls 0200,1000,1800 ARCHIE Administration Morphine Sulfate 4 mg 08/22/19 20:45 08/23/19 10:49 Morphine SLOW IVP 4 mg Q4H PRN Administration Moderate to Severe Pain (6-10) Nadolol 80 mg 08/23/19 09:00 08/23/19 08:23 Corgard PO 80 mg DAILY ARCHIE Administration Saccharomyces Boulardii 250 mg 08/23/19 09:00 08/23/19 08:23 Florastor PO 250 mg DAILY ARCHIE Administration Spironolactone 25 mg 08/23/19 08:00 08/23/19 08:23 Aldactone PO 25 mg QAM-WM ARCHIE Administration - Exam Neck: negative: supple, symmetric, no JVD, no thyromegaly, no lymphadenopathy, no carotid bruit, JVD Heart: negative: RRR, no murmur, no gallops, no rubs, normal peripheral pulses, irregular, diminshed peripheral pulses, murmur present, II/IV, III/IV Respiratory: negative: CTAB, no wheezes, no rales, no ronchi, normal chest expansion, no tachypnea, normal percussion, rales, rhonchi, tachypneic, wheezes Hosp A/P (1) Left hip pain Code(s): M25.552 - PAIN IN LEFT HIP Status: Acute (2) Psoas abscess, left Code(s): K68.12 - PSOAS MUSCLE ABSCESS Status: Acute (3) Pancreatitis Code(s): K85.90 - ACUTE PANCREATITIS WITHOUT NECROSIS OR INFECTION, UNSP Status: Acute - Plan s/p drain of his left psoas muscle. cx sent. pt states he feels much better. will continue current tx.
[2019-08-23] MEDS: Acetaminophen/Codeine 30-300mg Tablet PO PRN ×2 (17:10→21:02)
[2019-08-24] MEDS: Acetaminophen/Codeine 30-300mg Tablet PO PRN ×5 (01:18→21:15)
[2019-08-24] MEDS: MEROPENEM 1 GM/50 ML 1 GM in Premix Bag 1 BAG IVPB SCH ×3 (01:18→17:17)
[2019-08-24] MEDS: Nadolol 40 MG TAB PO SCH (08:29)
[2019-08-24] MEDS: Famotidine 20 MG TAB PO SCH ×2 (08:30→21:15)
[2019-08-24] MEDS: Spironolactone 25 MG TAB PO SCH (08:30)
[2019-08-24] MEDS: Saccharomyces boulardii 250 MG CAP PO SCH (08:30)
--- NOTE | 2019-08-24 13:29 | PDOC.HOSPP ---
- Subjective Encounter Date: 08/24/19 Encounter Time: 11:30 Subjective: pt up in bed no complain of lower back pain. pt's drain fell out. He did have 95ml output from his drain. - Objective Vital Signs & Weight: Vital Signs (12 hours) Temp Pulse Resp BP BP Pulse Ox 08/24/19 11:38 98.4 F 79 18 104/66 95 08/24/19 08:01 97.4 F L 71 18 100/68 96 08/24/19 08:00 96 08/24/19 04:00 98.2 F 77 18 101/64 97 Weight Admit Weight 191 lb 8 oz Weight 191 lb 8 oz I&O: 08/23/19 08/24/19 08/25/19 06:59 06:59 06:59 Intake Total 900 1960 600 Output Total 100 90 Balance 900 1860 510 Result Diagrams: 08/23/19 05:18 08/23/19 05:18 Hospitalist ROS - Review of Systems Cardiovascular: denies: chest pain, palpitations, orthopnea, paroxysmal noc. dyspnea, edema, light headedness, other Gastrointestinal: denies: nausea, vomiting, abdominal pain, diarrhea, constipation, melena, hematochezia, other Genitourinary: denies: dysuria, frequency, incontinence, hematuria, retention, other - Medication Medications: Active Medications Generic Name Dose Route Start Last Admin Trade Name Freq PRN Reason Stop Dose Admin Acetaminophen/Codeine Phosphate 1 tab 08/23/19 09:22 08/24/19 09:22 Tylenol #3 PO 1 tab Q4H PRN Administration Moderate Pain (4-6) Famotidine 20 mg 08/22/19 21:00 08/24/19 08:30 Pepcid PO 20 mg BID ARCHIE Administration Meropenem 1 gm/ Device 50 mls @ 100 mls/hr 08/23/19 02:00 08/24/19 08:30 IVPB 50 mls 0200,1000,1800 ARCHIE Administration Morphine Sulfate 4 mg 08/22/19 20:45 08/23/19 10:49 Morphine SLOW IVP 4 mg Q4H PRN Administration Moderate to Severe Pain (6-10) Nadolol 80 mg 08/23/19 09:00 08/24/19 08:29 Corgard PO 80 mg DAILY ARCHIE Administration Saccharomyces Boulardii 250 mg 08/23/19 09:00 08/24/19 08:30 Florastor PO 250 mg DAILY ARCHIE Administration Spironolactone 25 mg 08/23/19 08:00 08/24/19 08:30 Aldactone PO 25 mg QAM-WM ARCHIE Administration - Exam Heart: negative: RRR, no murmur, no gallops, no rubs, normal peripheral pulses, irregular, diminshed peripheral pulses, murmur present, II/IV, III/IV Respiratory: negative: CTAB, no wheezes, no rales, no ronchi, normal chest expansion, no tachypnea, normal percussion, rales, rhonchi, tachypneic, wheezes Gastrointestinal: negative: soft, non-tender, non-distended, normal bowel sounds , no palpable masses, no hepatomegaly, no splenomegaly, no bruit, no guarding, no rigidity, tender to palpation, distended, diminished bowl sounds, voluntary guarding Hosp A/P (1) Left hip pain Code(s): M25.552 - PAIN IN LEFT HIP Status: Acute (2) Psoas abscess, left Code(s): K68.12 - PSOAS MUSCLE ABSCESS Status: Acute (3) Pancreatitis Code(s): K85.90 - ACUTE PANCREATITIS WITHOUT NECROSIS OR INFECTION, UNSP Status: Acute - Plan s/p drain of his left psoas muscle. cx sent. pt states he feels much better. will continue current tx. 08/24 will continue abx, no fever. will consult gi on sunday. Pt may need to be transferred to a tertiary center for his psudocyts drainage.
--- NOTE | 2019-08-24 22:16 | CON ---
DATE OF CONSULTATION: 08/24/2019 HISTORY OF PRESENT ILLNESS: Mr. Herbert is back with worsening pain in the left retroperitoneal area radiating to the groin due to persistence and worsening of the collections in the psoas muscle. The patient had drainage, CT-guided, and 75 mL of purulent fluid removed. After that, the drain was left in place, which unfortunately came out accidentally. The patient immediately after the withdrawal of the fluid, felt significantly improved, in fact he almost feels as if he was before the whole process started, the first time around. He never had fever or chills. He was taking his oral antimicrobials after having completed a long course of meropenem. No headaches, visual symptoms, sore throat, odynophagia, or dysphagia. No dyspnea or chest pain. No back pain. No genitourinary symptoms. His scrotum is doing alright. No joint symptoms. No neurological symptoms. MEDICAL HISTORY: Alcoholism, pancreatitis, hypertension, pancreatic pseudocyst, left psoas muscle abscess, scrotal drainage, all connected to the retroperitoneal space towards the groin; IV meropenem via PICC line, which has been removed after completion. PAST SURGICAL HISTORY: Rotator cuff repair, ankle repair. ALLERGIES: NONE. FAMILY HISTORY: Noncontributory. SOCIAL HISTORY: Quit drinking alcoholic beverages about a month before. Never smoker. . Lives in [place]. MEDICATIONS: Med list; 1. P.r.n. medications. 2. Pepcid. 3. Meropenem. 4. Morphine. 5. Corgard. 6. Zofran. 7. Florastor. 8. Tramadol. PHYSICAL EXAMINATION: VITAL SIGNS: Temperature has been normal. BP 114/72, pulse 82, respirations 18, O2 sat 96%. SKIN: Shows the area where the catheter had been inserted. The catheter is out now by accident. Peripheral IV access. No lymphadenopathy. HEENT: Ocular movements conjugate. Oral cavity normal. NECK: Supple. LUNGS: Symmetric, clear breath sounds. HEART: S1 and S2, regular rate. No S3 or S4. ABDOMEN: Mildly tender in the left flank area. EXTREMITIES: The scrotal area has much improved. No joint inflammatory activity. Pulses, 1+ in dorsalis pedis. NEUROLOGIC: Nonfocal including cognitive function. LABORATORY STUDIES: White cell count 11.3 down to 9.8, hemoglobin 8.1, platelets 445, 77% neutrophils. Sodium 136, creatinine 0.93. Liver profile normal. Albumin 3.7. CRP 9.23. Urinalysis was normal. The cultures from retroperitoneal aspirate is still negative. Gram stain showed no organisms. Blood culture, no growth in 48 hours. ASSESSMENT: 1. History of alcoholism, in remission presumably. 2. Pancreatitis with pseudocyst. 3. Left psoas muscle abscess with multiple loculated fluid collections, treated previously with broad-spectrum coverage, persistence of the fluid collections and development of worsening pain and mobility impairment due to pain in the left lower extremity. 4. Marked improvement with following removal of fluid from the left psoas muscle collection via CT-guided drainage. 5. Inadvertent removal of the draining catheter that had been left in place. DISCUSSION: At this moment, I would recommend replacement of the catheter. Otherwise, the same problem may recur and may have to be readmitted. At this time, I would request for the catheter to be stitched up to the site to avoid accidental removal. In terms of antimicrobial therapy, if the cultures remain negative, I would go back to the oral antimicrobials that he had been taking before readmission. If something grows out, then we can target with a specific regimen. Job ID: [id number]
[2019-08-25] MEDS: Acetaminophen/Codeine 30-300mg Tablet PO PRN ×3 (01:33→14:17)
[2019-08-25] MEDS: MEROPENEM 1 GM/50 ML 1 GM in Premix Bag 1 BAG IVPB SCH ×2 (01:33→08:46)
[2019-08-25] MEDS: Nadolol 40 MG TAB PO SCH (06:11)
[2019-08-25 08:23] VITALS: TEMP 97.9
[2019-08-25] MEDS: Spironolactone 25 MG TAB PO SCH (08:46)
[2019-08-25] MEDS: Saccharomyces boulardii 250 MG CAP PO SCH (08:46)
[2019-08-25] MEDS: Famotidine 20 MG TAB PO SCH (08:46)
[2019-08-25 12:15] VITALS: BP 114/74
--- NOTE | 2019-08-25 13:06 | CT ---
CT PELVIS WITHOUT CONTRAST: INDICATIONS: Follow up psoas abscess on the left. TECHNIQUE: Axial tomograms obtained through the pelvis without IV enhancement. FINDINGS: A drainage catheter was placed on 08/23/2019. Purulent material was recovered. The drainage catheter inadvertently came out. Dr. Ortiz requested rescan to assess need to reinsert the catheter. The cultu res are negative at this point. Fluid dense collection seen in the mid abdomen, over the anterior aspect of the pancreas, extending i nto the left abdomen laterally is unchanged in size and appearance. Extraaxial gas pockets are seen i n the upper abdomen, along the inferior aspect of this fluid collection and under the left hemidiaphr agm. Tiny gas pockets are also seen within this fluid collection anteriorly, within the larger collec tion in the midline. The size of these collections is unchanged. The psoas collection in the left retroperitoneum has decreased in size and is more dense today. The c atheter has been removed, as per history. IMPRESSION: 1. The para psoas process on the left has more of a phlegmonous density today and is consistent with drainage. This is smaller than on the pre-drainage films. After a discussion with Dr. Ortiz, this col lection will be monitored prior to reinsertion of the catheter. 2. The fluid collections anterior to the pancreas and extending into the left abdomen are unchanged. There are gas pockets within the larger collection, anterior to the pancreas. There are extraluminal gas pockets in the upper abdomen. Bowel perforation or fistulous connection to the collections should be considered. Findings discussed with Dr. Ortiz. CODE CR POS: [facility]
--- NOTE | 2019-08-25 13:51 | PRG ---
DATE OF SERVICE: 08/25/2019 SUBJECTIVE: The patient is feeling well. Pain has resolved. No diarrhea. No respiratory symptoms. OBJECTIVE: VITAL SIGNS: He has been afebrile. Other vital signs are normal. O2 saturations are normal. LUNGS: Clear. ABDOMEN: Mild tenderness at the previous catheter exit site. LABORATORY DATA: White cell count reviewed yesterday. The cultures from the aspirate were negative thus far. ASSESSMENT AND PLAN: I had ordered a repeat procedure to reinsert the drainage catheter but radiologist pointed out to me that the repeat CT shows that the collection has diminished in size there is no fluid consistency within it anymore, seems like it all has been aspirated. We advised withholding an attempt to reinsert the catheter instead following the process and see if he reaccumulates at that point , and then reinsertion would be attempted. The pseudocyst like collection in the pancreas still remains and previous decision had been made not to approach it at this point in time. If the cultures remain negative, then the plan would be to discharge him on previous oral antimicrobials that had been prescribed in the outpatient setting. Job ID: [id number] MTDD
--- NOTE | 2019-08-26 04:23 | DIS ---
DATE OF ADMISSION: 08/22/2019 DATE OF DISCHARGE: 08/25/2019 DISCHARGE DIAGNOSES: 1. Psoas muscle abscess. 2. Pancreatitis, alcohol induced. 3. Pseudocyst complicated. 4. History of alcohol use. HOSPITAL COURSE: The patient is a very pleasant 54-year-old male, who initially presented to the hospital with complaints of lower back pain and groin pain. The patient had a previous hospitalization a month back with similar complaints at this time. He did have a significant and large pseudocyst, tracking all the way down to the psoas muscle. He did have a CT-guided fluid removed, which was minimal. At that time, the fluid grew coagulase-negative Staph, which most likely was thought to be a contaminant. However, he was treated with meropenem initially and then was transitioned to oral antibiotics maybe four days prior to coming into the hospital. The patient at this time on this admission presented with similar symptoms of lower back pain and groin pain. At this time, repeat CT of abdomen and pelvis indicated worsening or largening of the psoas muscle abscess. However, there was also multiloculated peripancreatic and retroperitoneal fluid collection, which appeared to be stable. The patient underwent a CT-guided drain inserted and also initially about 60-70 mL were removed. After the drain was inserted, the patient had greater than 90 mL that was removed. However, the drain fell off. The patient at this time was resent back to CAT scan to get another drain put in. However, there was not enough fluid for the drain to be inserted. At this time, the patient's symptoms resolved dramatically after the initial draining of 75 mL of fluid. So far, the patient's cultures have been negative. Infectious Disease has been consulted. I did speak with them. Recommended to continue Levaquin and Flagyl for the next two weeks and to follow up with a CAT scan in 10 days. I have communicated this with the patient. I also recommended the patient to follow up with GI. The patient might require to go to [facility] for his multiloculated pseudocyst to be drained. Also, I have told the patient if his lower back pain starts to worsen or comes back, he needs to come into the hospital. HOME MEDICATIONS: His home medications will be as of the followin. Levaquin 750 daily. 2. Flagyl 500 mg q.8 hours. 3. Nadolol 80 mg daily. 4. Pantoprazole 40 mg daily. 5. Florastor 250 daily. 6. Ambien 10 mg at bedtime. 7. Lasix 40 mg daily. PHYSICAL EXAMINATION: VITAL SIGNS: As of the following; temperature of 98.6, heart rate of 71, 20, 98% on room air, 114/74. GENERAL: He is awake, alert, and oriented x3. Does not appear in distress. CV: S1, S2 present. No murmurs, rubs, or gallops. ABDOMEN: Soft. He does have a little bit of some tenderness around where the catheter site was on his left flank area. Again, the patient was asked to follow up with his primary care and also with Infectious Disease and GI. Job ID: [id number]
== END 2019-08-25 15:35 | disposition home or self-care (01) | DRG 371 ==
LOC: ERS 11:43 → T4-B 17:21
PROVIDERS: ADMIT Internal Medicine; ATTEND Internal Medicine
PROC: 0W9H3ZZ Drainage of Retroperitoneum, Percutaneous Approach (ICD-10-PCS; principal; 2019-08-23)
DX: K68.12 Psoas muscle abscess (principal); K85.20 Alcohol induced acute pancreatitis without necrosis or infection; K86.3 Pseudocyst of pancreas; F10.188 Alcohol abuse with other alcohol-induced disorder; K21.9 Gastro-esophageal reflux disease without esophagitis; I10 Essential (primary) hypertension; D64.9 Anemia, unspecified; E87.6 Hypokalemia
CPT/HCPCS: 36415; 49060; 72158; 74176; 74177; 77002; 80048; 80053; 81003; 85025; 85610; 85652; 85730; 86140; 87040; 87070; 87205; 96361; 96365; 96366; 96368; 96375; A9579; C1729; J2185; J2250; J2270; J3010; J3370; Q9967

== ENCOUNTER 2019-10-01 19:49 | Inpatient (IN) | payer BC ==
[2019-10-01] MEDS ORDERED: Azithromycin 500 MG VIAL ONE (20:22)
[2019-10-01] MEDS ORDERED: Cefepime 2 GM VIAL ONE (20:22)
--- NOTE | 2019-10-01 20:25 | RAD ---
PORTABLE CHEST: 10/01/19 HISTORY: Shortness of breath. COMPARISON: 06/28/19 study. Heart size appears borderline enlarged for portable technique. Mediastinal structures are unremarkab le. The lungs are clear of infiltrates. There is no signs of failure. IMPRESSION: No active intrathoracic disease. POS: [facility]
[2019-10-01 20:35] LABS: Mean Corpuscular HGB CONC 32.1 g/dL (32.0-36.0); Mean Corpuscular Hemoglobin 28.5 pg (27.0-31.0); Mean Corpuscular Volume 88.8 fL (78.0-98.0); Mean Platelet Volume 7.8 fL (7.4-10.4); Platelet Count 388 thou/uL (130-400); RBC Distribution Width 13.4 % (11.5-14.5); Red Blood Cell (RBC) Count 4.21 mill/uL (4.70-6.10); White Blood Cell (WBC) Count 18.4 thou/uL (4.8-10.8)
[2019-10-01 20:51] LABS: ALT (SGPT) 18 U/L (8-55); AST (SGOT) 12 U/L (5-34); Albumin 3.9 g/dL (3.5-5.0); Alkaline Phosphatase 164 U/L (40-110); Anion Gap 16 mmol/L (10-20); BUN (Urea Nitrogen) 24 mg/dL (8.4-25.7); Bilirubin, Total 1.1 mg/dL (0.2-1.2); Calc. Creatinine Clearance 0 mL/min (70-130); Calcium 11.7 mg/dL (7.8-10.44); Carbon Dioxide 29 mmol/L (22-29); Chloride 93 mmol/L (98-107); Estimated GFR-MDRD 22; Globulin 4.2 g/dL (2.4-3.5); Glucose 72 mg/dL (70-105); Potassium 4.2 mmol/L (3.5-5.1); Protein, Total 8.1 g/dL (6.0-8.3); Sodium 134 mmol/L (136-145)
[2019-10-01 20:56] LABS: Band 18 % (5-11); Hypochromia SLIGHT = 6-15 cells (100X) (0-5/hpf); Lymphocytes 3 % (21-51); MDiff Complete? YES; Monocytes 16 % (0-10); Neutrophil 63 % (42-75); Platelet Morphology Comment Appears Adequate
[2019-10-01] MEDS ORDERED: Vancomycin 1.5 GRAM/300 ML BAG 1.5 GM in Premix Bag 1 BAG IVPB SCH (21:15)
[2019-10-01] MEDS ORDERED: metroNIDAZOLE 500 MG in Premix Bag 1 BAG IVPB SCH (22:00)
[2019-10-01] MEDS ORDERED: Norepinephrine 8 MG/0.9% NS 250 ML IVPB SCH (22:02)
--- NOTE | 2019-10-01 22:55 | RAD ---
XR Chest 1 View Portable HISTORY: Central line placement COMPARISON: Exam done earlier today. FINDINGS: Right-sided central line is been placed. Catheter tip overlying the distal superior vena ca va right atrium junction. No pneumothorax. No other interval change. IMPRESSION: Placement of a right-sided central line, no signs of pneumothorax.
[2019-10-01] MEDS ORDERED: Acetaminophen 650 MG Suppository PR PRN (23:10)
[2019-10-01] MEDS ORDERED: Bisacodyl 5 MG TAB PO PRN (23:10)
[2019-10-01] MEDS ORDERED: Acetaminophen 325 MG TAB PO PRN (23:10)
[2019-10-01] MEDS ORDERED: Bisacodyl 10 MG SUPP PR PRN (23:10)
[2019-10-01] MEDS ORDERED: HYDROcodone/Acetaminophen 5/325 mg Tablet PO PRN ×2 (23:10)
[2019-10-01] MEDS ORDERED: Senokot S 8.6-50 MG TAB PO PRN (23:10)
--- NOTE | 2019-10-01 23:10 | PDOC.HHP ---
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 In ED, lactic acid noted 4.2 on arrival, BPs in 80s/50s and getting lower since then, repeat lactic acid pending, CT A/P performed revealing further inferior extension of the pseudocyst with findings concerning for recurrant infected pseudocyst. I discussed with Dr Orantes who will follow with us, no emergent surgical needs currently. Due to worsening blood pressures and elevated lactic acid despite 30cc/kg bolus patient had IJ central line placed in ED and being admitted to CCU in preparation of vasopressor initation. Patient had admission in August for complicated abscess, psoas abscess, CT guided drain was placed that admission, Dr Ortiz saw patient in hospital and also in clinic, patient on antifungal fluconazole at home. Psoas culture last admission w/ gladys. He had a scrotal abscess drained in July by Dr Cooper, denies problems with the area since then. ED Course: VITAL SIGNS SunOct 01, 2019 22:36 LEONCIO Ramirez Jennifer BP: 83/57 Pulse: 92 Resp: 28 Temp: 97.9 Pain: 2 O2 sat: 97 Time: 10/01/2019 22:36. pantoprazole oral SunOct 01, 2019 20:15 LEONCIO Ramirez Jennifer TABLET, DELAYED RELEASE (ENTERIC COATED) : Strength - 20 mg : ORAL Patient Dose: 40 mg Oral once a day (in the morning). nadolol SunOct 01, 2019 20:15 LEONCIO Ramirez Jennifer TABLET : Strength - 80 mg : ORAL Patient Dose: 80 mg Oral once a day. Lasix oral SunOct 01, 2019 20:15 LEONCIO Ramirez Jennifer TABLET : Strength - 40 mg : ORAL Patient Dose: 40 mg Oral once a day. fluconazole SunOct 01, 2019 20:16 LEONCIO Ramirez Jennifer tablet : Strength - 200 mg : ORAL Patient Dose: 2 tab(s) Oral 2 times a day Hospitalist ROS - Review of Systems Constitutional: reports: fever, chills Eyes: denies: pain, vision change, conjunctivae inflammation, eyelid inflammation, redness, other ENT: reports: throat pain (hoarseness). denies: ear pain, ear discharge, nose pain, nose discharge, nose congestion, mouth pain, mouth swelling, throat swelling, other Respiratory: reports: shortness of breath. denies: cough, dry, hemoptysis, SOB with excertion, pleuritic pain, sputum, wheezing, other Cardiovascular: denies: chest pain, palpitations, orthopnea, paroxysmal noc. dyspnea, edema, light headedness, other Gastrointestinal: denies: nausea, vomiting, abdominal pain, diarrhea, constipation, melena, hematochezia, other Genitourinary: denies: dysuria, frequency, incontinence, hematuria, retention, other Musculoskeletal: denies: neck pain, shoulder pain, arm pain, back pain, hand pain, leg pain, foot pain, other Skin: denies: rash, lesions, win, bruising, other Neurological: denies: weakness, numbness, incoordination, change in speech, confusion, seizures, other All other systems reviewed; all pertinent +/- noted in HPI/Subj Hospitalist History - Past Medical History Other Medical History: pancreatic pseudocyst complicated by infection in 08/2019, alcoholic pancreatitis, psoas abscess, groin abscess in 07/2019 - Past Surgical History Other Surgical History: drainage of panc cyst (IR perc drain) scrotal abscess I&D - Family History Family History: reports: no pertinent history - Social History Alcohol: reports: Heavy (quit in june) Drugs: reports: none - Exam General Appearance: NAD, awake alert Eye: PERRL, anicteric sclera ENT: normocephalic atraumatic, no oropharyngeal lesions, moist mucosa Neck: supple, symmetric, no JVD, no thyromegaly, no lymphadenopathy, no carotid bruit Heart: RRR, no murmur, no gallops, no rubs, normal peripheral pulses Respiratory: CTAB, no wheezes, no rales, no ronchi, normal chest expansion, no tachypnea, normal percussion Gastrointestinal: soft, non-tender, non-distended, normal bowel sounds, no palpable masses, no hepatomegaly, no splenomegaly, no bruit Extremities: no cyanosis, no clubbing, no edema Skin: normal turgor, no lesions, no rashes Neurological: cranial nerve grossly intact, normal sensation to touch, no weakness, no focal deficits, no new deficit Musculoskeletal: normal tone, normal strength, no muscle wasting Psychiatric: normal affect, normal behavior, A&O x 3 Hospitalist Results - Labs Result Diagrams: 10/02/19 04:00 10/02/19 04:00 Lab results: WBC 18.4 thou/uL (4.8-10.8) H 10/01/19 20:16 Hgb 12.0 g/dL (14.0-18.0) L 10/01/19 20:16 Hct 37.3 % (42.0-52.0) L 10/01/19 20:16 MCV 88.8 fL (78.0-98.0) 10/01/19 20:16 Plt Count 388 thou/uL (130-400) 10/01/19 20:16 Band Neuts % (Manual) 18 % (5-11) H 10/01/19 20:16 Sodium 134 mmol/L (136-145) L 10/01/19 20:16 Potassium 4.2 mmol/L (3.5-5.1) 10/01/19 20:16 Chloride 93 mmol/L (98-107) L 10/01/19 20:16 Carbon Dioxide 29 mmol/L (22-29) 10/01/19 20:16 BUN 24 mg/dL (8.4-25.7) 10/01/19 20:16 Creatinine 2.94 mg/dL (0.7-1.3) H 10/01/19 20:16 Glucose 72 mg/dL (70-105) 10/01/19 20:16 Lactic Acid 4.2 mmol/L (0.5-2.2) H* 10/01/19 20:16 Calcium 11.7 mg/dL (7.8-10.44) H 10/01/19 20:16 Total Bilirubin 1.1 mg/dL (0.2-1.2) 10/01/19 20:16 AST 12 U/L (5-34) 10/01/19 20:16 ALT 18 U/L (8-55) 10/01/19 20:16 Alkaline Phosphatase 164 U/L (40-110) H 10/01/19 20:16 Troponin I Less than 0.010 ng/mL (< 0.028) 10/01/19 20:16 B-Natriuretic Peptide 692.0 pg/mL (0-100) H 10/01/19 20:16 Serum Total Protein 8.1 g/dL (6.0-8.3) 10/01/19 20:16 Albumin 3.9 g/dL (3.5-5.0) 10/01/19 20:16 Additional comment: outside CT report reviewed Hospitalist H&P A/P - Plan Plan: Patient is a 54 year old male with PMH pancreatic 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 # septic shock secondary to recurrent infected pancreatic pseudocyst - admit to CCU, norepinephrine ordered and CVC placed in IJ by ED team - discussed with Dr Redding, no surgical needs tonight, will follow with us in AM - initiate vancomycin and merrem, follow cultures, got 30 cc/kg bolus - continue empiric antifungal # thrombocytopenia - worsened overnight, hold heparin, scds for dvt ppx # acute renal failure - likely due to shock/ATN, trend BMP, keep MAP above 65 and consult nephrology if continues to worsen or fails to improve 52 minutes critical care time
[2019-10-01] MEDS ORDERED: Promethazine HCl 12.5 MG in Sodium Chloride 0.9% 50 ML IVPB PRN (23:13)
[2019-10-01] MEDS ORDERED: cloNIDine 0.1 MG TAB PO PRN (23:13)
[2019-10-01] MEDS ORDERED: Morphine 2 MG/ML SYRINGE SLOW IVP PRN (23:13)
[2019-10-01] MEDS ORDERED: hydrALAZINE 20 MG/ML VIAL SLOW IVP PRN (23:13)
[2019-10-01] MEDS ORDERED: Ondansetron PF 4 MG/2 ML Vial IVP PRN (23:13)
--- NOTE | 2019-10-01 23:31 | RAD ---
XR Chest 1 View Portable HISTORY: Central line placement. COMPARISON: Earlier exam of the same day. FINDINGS: A right-sided central line is again noted. The distal end of the line is now overlying the mid superior vena cava. No pneumothorax is identified. IMPRESSION: Central line placement as described above.
[2019-10-01 23:46] LABS: Lactic Acid 2.6 mmol/L (0.5-2.2)
[2019-10-02 01:42] VITALS: BP 88/60; BMI 25.3
[2019-10-02] MEDS: MEROPENEM 1 GM/50 ML 1 GM in Premix Bag 1 BAG IVPB SCH ×2 (03:12→14:51)
[2019-10-02 04:24] LABS: Hemoglobin 10.2 g/dL (14.0-18.0); Mean Corpuscular Hemoglobin 28.6 pg (27.0-31.0); Mean Corpuscular Volume 89.4 fL (78.0-98.0); Mean Platelet Volume 7.5 fL (7.4-10.4); Platelet Count 415 thou/uL (130-400); RBC Distribution Width 13.7 % (11.5-14.5); Red Blood Cell (RBC) Count 3.56 mill/uL (4.70-6.10); White Blood Cell (WBC) Count 25.1 thou/uL (4.8-10.8)
[2019-10-02 04:44] LABS: Band 24 % (5-11); Eosinophils 1 % (0-10); Hypochromia SLIGHT = 6-15 cells (100X) (0-5/hpf); Lymphocytes 19 % (21-51); MDiff Complete? YES; Monocytes 5 % (0-10); Neutrophil 51 % (42-75); Platelet Morphology Comment Appears Increased
[2019-10-02 04:45] LABS: ALT (SGPT) 15 U/L (8-55); AST (SGOT) 13 U/L (5-34); Albumin 3.3 g/dL (3.5-5.0); Alkaline Phosphatase 135 U/L (40-110); Bilirubin, Direct 0.6 mg/dL (0.1-0.3); Bilirubin, Total 0.9 mg/dL (0.2-1.2); Protein, Total 6.8 g/dL (6.0-8.3)
[2019-10-02 04:46] LABS: Anion Gap 20 mmol/L (10-20); BUN (Urea Nitrogen) 29 mg/dL (8.4-25.7); Calc. Creatinine Clearance 35 mL/min (70-130); Calcium 10.7 mg/dL (7.8-10.44); Carbon Dioxide 22 mmol/L (22-29); Chloride 98 mmol/L (98-107); Estimated GFR-MDRD 24; Magnesium 1.2 mg/dL (1.6-2.6); Potassium 3.5 mmol/L (3.5-5.1); Sodium 136 mmol/L (136-145)
[2019-10-02 04:50] LABS: Glucose 58 mg/dL (70-105)
[2019-10-02] MEDS ORDERED: Dextrose 50 % In Water 50 ML SYRINGE ONE (04:53)
[2019-10-02] MEDS ORDERED: Magnesium Sulfate 4 GM in Sodium Chloride 0.9% 250 ML 250 ML IVPB SCH (05:15)
[2019-10-02] MEDS ORDERED: FLUCONAZOLE 400 MG PO SCH (09:00)
[2019-10-02] MEDS ORDERED: Fluconazole 100 MG TAB PO SCH (09:00)
[2019-10-02] MEDS ORDERED: Polyethylene Glycol 3350 17 GM Packet PO SCH (09:00)
[2019-10-02] MEDS ORDERED: Pantoprazole 40 MG VIAL IVP SCH (09:00)
[2019-10-02] MEDS ORDERED: Heparin 5,000 UNITS/ML VIAL SC SCH (09:00)
[2019-10-02] MEDS ORDERED: Fluconazole In NaCl,Iso-Osm 200 MG in Premix Bag 1 BAG IVPB SCH (09:00)
[2019-10-02] MEDS: Sodium Chloride 0.9% 1,000 ML IV SCH ×2 (09:51→19:26)
--- NOTE | 2019-10-02 10:15 | CON ---
DATE OF CONSULTATION: 10/02/2019 35 minutes critical care time. REASON FOR CONSULTATION: Septic shock. HISTORY OF PRESENT ILLNESS: The patient is a 54-year-old male who comes to the hospital with hypotension, voice hoarseness, and lactic acidosis. He has a history of a pancreatic pseudocyst which apparently extends down into the pelvic wall. He also had a psoas abscess in the past. He had CT drainage of the psoas abscess last admission. Dr. Ortiz saw him. He was sent home on some antifungal therapy. He now presents with abdominal pain, hypotension, and the voice hoarseness. PAST MEDICAL HISTORY: 1. Previous pseudocyst and psoas abscess. 2. History of right lower extremity being trapped in farming hardware. 3. Hypertension. 4. Hyperlipidemia. PAST SURGICAL HISTORY: Rotator cuff repair, ankle repair. ALLERGIES: NONE. FAMILY MEDICAL HISTORY: Unremarkable. SOCIAL HISTORY: Quit drinking alcoholic beverages back in June. , lives in [place]. Never smoker. MEDICATIONS: Prior to admission, 1. Fluconazole. 2. Protonix. 3. Corgard. 4. Lasix. Current inpatient medications 1. Fluconazole. 2. Hydralazine. 3. Meropenem. 4. Morphine. 5. Levophed. 6. Zofran. 7. Protonix. 8. MiraLAX. 9. Vancomycin. PHYSICAL EXAMINATION: VITAL SIGNS: Heart rate 86, O2 saturation 98%, respiratory rate in the 30s, blood pressure 115/92. GENERAL: The patient is awake, very hoarse, speaks in low voice, difficult to understand. He appears chronically ill. HEENT: Unremarkable. NECK: No JVD. LUNGS: Clear anteriorly. CARDIAC: S1, S2 regular. ABDOMEN: Mildly tender mid epigastric region. EXTREMITIES: No cyanosis or clubbing. LABORATORY DATA: White blood cell count 25.1, hemoglobin 10, hematocrit 31.8, and platelet count 415. D-dimer 2.9. Sodium 136, potassium 3.5, chloride 98, CO2 of 22, BUN 29, creatinine 2.8, glucose was 58, lactate 2.6, calcium 10.7, alkaline phosphatase 135. CT of the abdomen showed enlarging pancreatic pseudocyst. Micro cultures did not grow on the first 24 hours. ASSESSMENT: Septic shock secondary to recurrent enlarging pseudocyst and probable bacteremia. PLAN: GI and General Surgery have been consulted. He will continue on the antibiotics. I will add maintenance IV fluids. He needs to remain in ICU. He possibly may be transferred to an outside facility for abscess drainage. Job ID: [id number]
--- NOTE | 2019-10-02 10:33 | PDOC.HOSPP ---
- Subjective Encounter Date: 10/02/19 Encounter Time: 10:32 Subjective: Mr. Herbert was seen today in follow-up of acute on chronic pancreatitis with pseudocyst formation. His main complaint is that he is short of breath, and can' t talk. His voice is very faint. He has a mild sore throat. - Objective Vital Signs & Weight: Vital Signs (12 hours) Temp Pulse Resp BP Pulse Ox 10/02/19 08:00 97.5 F L 99 10/02/19 04:00 97.7 F 10/02/19 03:03 93 27 H 100 10/02/19 00:35 97.7 F 97 18 88/60 L 100 Weight Weight 181 lb 11.2 oz Most Recent Monitor Data Heart Rate from ECG 85 NIBP 114/70 NIBP BP-Mean 84 Respiration from ECG 26 SpO2 97 I&O: 10/01/19 10/02/19 10/03/19 06:59 06:59 06:59 Intake Total 309 Output Total 200 0 Balance 109 0 Result Diagrams: 10/02/19 04:00 10/02/19 04:00 Hospitalist ROS - Medication Medications: Active Medications Generic Name Dose Route Start Last Admin Trade Name Freq PRN Reason Stop Dose Admin Albuterol/Ipratropium 3 ml 10/01/19 23:13 10/02/19 03:03 Duoneb NEB 3 ml [id number] PRN Administration SOB &/or Wheezing Meropenem 1 gm/ Device 50 mls @ 100 mls/hr 10/02/19 03:00 10/02/19 03:12 IVPB 50 mls 0300,1500 ARCHIE Administration Fluconazole/Sodium Chloride 100 mls @ 100 mls/hr 10/02/19 09:00 10/02/19 09: 07 200 mg/ Device IVPB 100 mls DAILY ARCHIE Administration Sodium Chloride 1,000 mls @ 100 mls/hr 10/02/19 09:30 10/02/19 09:51 Normal Saline 0.9% IV 1,000 mls .Q10H ARCHIE Administration Pantoprazole Sodium 40 mg 10/02/19 09:00 10/02/19 09:07 Protonix IVP 40 mg DAILY ARCHIE Administration Polyethylene Glycol 17 gm 10/02/19 09:00 10/02/19 09:08 Miralax PO Not Given DAILY ARCHIE Sodium Chloride 10 ml 10/02/19 09:00 10/02/19 09:08 Flush - Normal Saline IVF 10 ml Q12HR ARCHIE Administration - Exam Eye: PERRL, anicteric sclera ENT: dry oral mucosa (Throat is extremely dry, no erythema, no exudates, uvulae is midline, no bulgingof the soft palate) Heart: RRR, no murmur, no gallops, no rubs, normal peripheral pulses Respiratory: CTAB (+ faint rales at the bases,), no wheezes Gastrointestinal: soft, non-distended, normal bowel sounds, no palpable masses, no hepatomegaly, no splenomegaly Extremities: no cyanosis, no edema Hosp A/P (1) Acute on chronic pancreatitis Code(s): K85.90 - ACUTE PANCREATITIS WITHOUT NECROSIS OR INFECTION, UNSP; K86.1 - OTHER CHRONIC PANCREATITIS Status: Acute (2) Acute kidney injury Code(s): N17.9 - ACUTE KIDNEY FAILURE, UNSPECIFIED Status: Acute (3) Pseudocyst of pancreas Code(s): K86.3 - PSEUDOCYST OF PANCREAS Status: Acute (4) Sepsis Code(s): A41.9 - SEPSIS, UNSPECIFIED ORGANISM Status: Acute - Plan * Acute on chronic pancreatitis- continue Aggressive fluid resuscitation * He has an infected pseudocyst- discussed with Dr. Bowden- he recommends transfer to a higher level of care- a place which can manage the infected pseudocyst. * Sepsis- continue broad spectrum antibiotics * Acute kidney injury- I suspect this is due to pre-renal azotemia- will consult Dr. Alcocer *
--- NOTE | 2019-10-02 11:18 | CON ---
DATE OF CONSULTATION: REASON FOR CONSULTATION: Elevated creatinine. HISTORY OF PRESENT ILLNESS: A very pleasant 54-year-old gentleman who presented with a pancreatic pseudocyst. His baseline creatinine was 0.9, which increased to 2.9 and is 2.8 today. The patient was hypotensive and started on pressors. The patient at this time denies any nausea, vomiting, or chest pain. PAST MEDICAL HISTORY: Significant for hypertension, acute kidney injury, peaking creatinine of 5, history of pancreatic pseudocyst, hyperlipidemia, history of rotator cuff repair, history of ankle surgery. FAMILY HISTORY: Negative for ESRD. ALLERGIES: REVIEWED. HOME MEDICATIONS: List reviewed. HOSPITAL MEDICATIONS: List reviewed. REVIEW OF SYSTEMS: 15-point review of system was performed negative except for positives noted above. GENERAL: HEAD: NECK: No swelling or lumps. NOSE: No epistaxis or discharge. EYES: No diplopia or pain. RESPIRATORY: CARDIOVASCULAR: GASTROINTESTINAL: /POULTRY VETERINARIAN: MUSCULOSKELETAL: No joint pain. NEUROPSYCHIATRIC SYSTEMS: No suicidal ideation. No ideation. SKIN: Denies any rash or ulcer. CONSTITUTIONAL: No fever or chills. PHYSICAL EXAMINATION: GENERAL: The patient is awake, alert. VITAL SIGNS: Pulse 75, breathing 16, blood pressure was 114/70. GENERAL APPEARANCE AND MENTAL STATUS: Fair. HEAD/NECK: Normocephalic. Atraumatic. EYES: EOMI. No deformity. EARS: Clear. No ulcers. NOSE: Intact. No lesions. MOUTH: Clear. No discharge. THROAT: Clear. No exudate. LUNGS: Clear. No crackles. CARDIAC: S1, S2. No rub. ABDOMEN: Distended. GENITALIA/RECTUM: Clark absent. BACK/EXTREMITIES: Edema 0+. NEUROLOGICAL: Alert and motor intact. SKIN: LYMPHATICS: LABORATORY DATA: Labs show hemoglobin 10.2, creatinine 2.8. ASSESSMENT: 1. Acute kidney injury, chronic kidney disease stage 4, most likely due to decreased effective arterial blood volume. Agree with hydration. 2. Anemia, stable. 3. Medication based on GFR appropriate. No indication for dialysis at this time. 4. Please dose vancomycin per levels. Job ID: [id number]
[2019-10-02] MEDS ORDERED: Sodium Chloride 0.9% 1,000 ML IV SCH (15:16)
--- NOTE | 2019-10-02 15:50 | CON ---
DATE OF CONSULTATION: REASON FOR CONSULTATION: Recurrent abdominal abscess in association with a pseudocyst. HISTORY OF PRESENT ILLNESS: Mr. Herbert is a 54-year-old gentleman, who was in the hospital in June with an episode of severe pancreatitis attributed to alcohol. He ended up with complications of pseudocyst, but ultimately discharged at the end of June. He had loculated pockets of fluid at that time. He was ultimately readmitted a few days after his discharge. Ultimately, he was found to have fever and sepsis like process. Ultimately, he was felt to have a pseudocyst that was involving the left iliopsoas muscle and with worsening pain and fever, he was concerned this was infected. This was drained, and ultimately he grew out the fungus, which was treated with antibiotics. The catheter did come out in late August, that was re-drained with a drainage tube left in place. It is unclear when that came out, when they tried to replace one. There was no fluid to tap. Therefore, he was sent home with antibiotics and antifungals. He had outpatient followup CT yesterday, which showed reaccumulation of the fluid collection in the left pelvis and persistent collections around the pancreas. This is felt to have worsened since the previous exam. He also presented with lactic acidosis, leukocytosis, and renal insufficiency. He was readmitted and placed on broad-spectrum antibiotics. I talked with the patient. He felt well until about 3 or 4 days ago and he began to have the worsening pain, fever, and anorexia. He denies any history of alcohol use since he became initially ill. He denies other medical history. PAST MEDICAL HISTORY: 1. Severe pancreatitis in June with pseudocyst with complications of infection and recurrent bouts of infection and nonresolution. 2. Alcohol abuse, none since his admission in 06/2019. 3. The patient denies any history of cirrhosis. 4. No history of hypertension or diabetes. PAST SURGICAL HISTORY: Orthopedic Surgery in the past. No history of abdominal surgeries. He does have the drains placed here. MEDICATIONS: On admission: 1. Pantoprazole. 2. Nadolol. 3. Lasix 40 mg once daily. 4. Fluconazole 200 mg b.i.d. Present medications here in the hospital: 1. Tylenol. 2. DuoNeb. 3. Fluconazole IV 200 mg daily. 4. P.r.n. morphine. 5. He was on Levophed, which has been weaned off. 6. Protonix 40 mg daily. 7. Phenergan. 8. Vancomycin. 9. Meropenem. 10. He was given 100 an hour of normal saline. SOCIAL HISTORY: Daughter and other family member at the bedside. ALLERGIES: NONE. FAMILY HISTORY: Negative for liver disease or pancreatic disease. He has had a previous colonoscopy for screening purposes, it seems in 2017. PHYSICAL EXAMINATION: GENERAL: He is unable to talk. He can kind of talk a little bit, it seems to make sense, but it is like he is very hoarse. VITAL SIGNS: Temperature is 97, pulse 77, blood pressure is 107/57. Urine output, put out 200 mL at 6 this morning, he has not urinated since the 200 last night. ABDOMEN: He has very mild lower abdominal pain. No peritoneal signs. No guarding. No rebound. No drainage in his back or inguinal or groin regions. There is no hepatosplenomegaly. No masses are palpated. LUNGS: Breath sounds are decreased in the chest with slight crackles at the bases. HEART: Regular rate and rhythm. No murmurs are heard. EXTREMITIES: No clubbing, cyanosis, or edema. SKIN: Without rash or lesions. NEUROLOGIC: Strength is equal in the upper and lower extremities. Pupils are equal, round, and reactive to light. His family feels he is actually making sense. It is just hard for them talking, I think it is from hoarseness or dry voice. LABORATORY DATA: Sodium 136, potassium 3.5, chloride 98, bicarb 22, BUN and creatinine 29 and 2.8 and his creatinine was 0.93 on 08/23, calcium is 10. Lactic acid 2.6, it was 4.2 last night. Magnesium 1.2, it has been replaced. Phosphorus not checked. AST and ALT are 13 and 15, alkaline phosphatase is 135, bilirubin 0.6, albumin 3.3, and protein 6.8. CRP on 10/01 was 64, had been 35 on 06/22, it was 9.2 on 08/22. Lipase is 11 in last July, it is not rechecked this admission. White count 25,000, hemoglobin 10.2, platelet count 415, and 24% bands. INR was 1.4 on 08/23, not checked this admission. Urine not done. Fluid amylase on 07/24 when the fluid collection in the left pelvis initially tapped was 283. ASSESSMENT: Complicated pancreatitis in 2019 in June and July, with also development of pseudocyst tracking into the groin region and the iliopsoas region and the left pericolic gutter, ultimately infected. It was drained and has reoccurred. He was treated empirically with broad-spectrum antibiotics and fungal medicines up until recently, seemingly even when he was just for admission. Presently, he has some signs of renal insufficiency and sepsis. He has responded to IV fluids. He is off pressors. He has not responded to 2 conservative episodes of drainage of this collection. I suspect he probably has ongoing pancreatic leak. RECOMMENDATIONS: 1. Broad-spectrum antibiotics. Panculture. Replace electrolytes and check daily. Increase IV fluids to 150 mL an hour. 2. ID consult and Nephrology consult. 3. I had discussed the case with Pulmonary Critical Care and admitting satellite dish installer. This gentleman I think would best be served by getting care to a tertiary facility where pancreatic team can approach his ongoing pancreatic leak and recurrent infection. He may need pancreatic surgery or debridement. He may ultimately need some type of endoscopic intervention or pseudocyst drainage or some type of stenting of the bile duct, but presently he has failed 2 courses of percutaneous drainage. He would be at risk with further drains to form a permanent fistula collection here. We do not have pancreatic surgery available here. We have limited resources and abilities with Interventional Radiology, and we do not have any endoscopic therapy for pancreatic pseudocyst or infected pancreatic tissue debridement here at this facility. The family is agreeable to transfer if we can find accepting hospital, and therefore, I have initiated the transfer to [facility], where those resources both physical and also in terms of staffing are available. If he would have any deterioration in clinical status, he needs to have this drained now. Job ID: [id number]
[2019-10-02] MEDS ORDERED: Multivitamins, Adult 10 ML, Folic Acid 1 MG, Thiamine HCl 100 MG in Dextrose 5 %-0.45 %... IV SCH (16:00)
[2019-10-02 16:36] VITALS: TEMP 97.7
--- NOTE | 2019-10-02 19:02 | DIS ---
DATE OF ADMISSION: 10/02/2019 DATE OF DISCHARGE: 10/02/2019 DISCHARGE DISPOSITION: To [facility] in [place]. DISCHARGE DIAGNOSES: 1. Infected pseudocyst. 2. Acute on chronic pancreatitis. 3. Alcohol abuse. 4. Acute kidney injury. 5. Sepsis. DISCHARGE MEDICATIONS: Include; 1. Vancomycin 1.25 g IV daily. 2. Pantoprazole 40 mg IV daily. 3. Meropenem 1 g IV q.12. 4. DuoNeb q.2 as needed. 5. Fluconazole 200 mg IV daily. 6. Clonidine 0.1 mg p.o. twice a day as directed. IMAGING DONE DURING HOSPITAL STAY: The patient had a CT scan of the abdomen and pelvis, it showed an evolving pancreatic pseudocyst extending down to the level of the pelvic sidewall. The fluid components inferiorly had worsened compared to the prior exam. CODE STATUS: Full code. ALLERGIES: NO KNOWN DRUG ALLERGIES. HOSPITAL COURSE: Mr. Herbert is a pleasant 54-year-old gentleman, who presented to the emergency room initially with difficulty breathing and trouble talking and hoarseness. He was also noted to have some abdominal pain as well. When he was evaluated in the emergency room, he was found to be septic with an elevated white blood cell count. CT scan of the abdomen showed an infected pseudocyst. He was also found to be in acute kidney injury. He was admitted to the hospital and started on IV hydration as well as empiric IV antibiotics. The acute kidney injury is thought to be due to third spacing and volume depletion. The difficulty speaking is likely as a result of extreme dry mouth due to dehydration and likely third spacing. The infected pseudocyst was felt to be better managed at a higher level of care. This after being evaluated by the general surgeon and director technical salesperson sewing machines. The patient was therefore transitioned to [facility] in the [facility]. Job ID: [id number]
[2019-10-02] MEDS ORDERED: Vancomycin HCl 1.25 GM in Sodium Chloride 0.9% 250 ML 250 ML IVPB SCH (21:00)
== END 2019-10-02 20:28 | disposition short-term general hospital (02) | DRG 871 ==
LOC: ERS 19:49 → CCU 10-02 00:44
PROVIDERS: ADMIT Internal Medicine; ATTEND Internal Medicine
DX: A41.9 Sepsis, unspecified organism (principal); R65.21 Severe sepsis with septic shock; K85.90 Acute pancreatitis without necrosis or infection, unspecified; N17.9 Acute kidney failure, unspecified; K86.3 Pseudocyst of pancreas; N18.4 Chronic kidney disease, stage 4 (severe); R49.0 Dysphonia; D69.6 Thrombocytopenia, unspecified; E78.5 Hyperlipidemia, unspecified; I12.9 Hypertensive chronic kidney disease with stage 1 through stage 4 chronic kidney disease, or unspecified chronic kidney disease; F10.10 Alcohol abuse, uncomplicated; Z98.890 Other specified postprocedural states
CPT/HCPCS: 71045; 80048; 80076; 83605; 83735; 83880; 84484; 85025; 85379; 87040; 87804; 93005; 94640; 94760; C9113; J0456; J0692; J1450; J2185; J3411; J3475; J7042; J7050; J7620

== ENCOUNTER 2019-10-17 13:03 | Emergency (ER) | payer BC ==
[~2019-10-17 13:03] MED LIST changes: -Iopamidol 370 76% 100 ML VIAL ONE; +Iopamidol-370 76% 500 ML 1 ML ONE; -Magnevist 469MG/ML 20 ML VIAL ONE
[2019-10-17] MEDS ORDERED: Lorazepam 2 MG/ML VIAL ONE (16:46)
[2019-10-17] MEDS ORDERED: Oxymetazoline HCl 0.05% (30 ML BOT) ONE (16:46)
[2019-10-17 17:27] LABS: #Basophils 0.1 thou/uL (0.0-0.2); #Eosinphils 0.1 thou/uL (0.0-0.7); #Lymphocytes 2.4 thou/uL (1.20-3.40); #Monocytes 0.7 thou/uL (0.11-0.59); #Neutrophils 4.5 thou/uL (1.40-6.50); %Basophils 1.2 % (0.0-1.0); %Lymphocytes 30.5 % (21.0-51.0); %Monocytes 8.6 % (0.0-10.0); %Neutrophils 58.6 % (42.0-75.0); Mean Corpuscular HGB CONC 33.4 g/dL (32.0-36.0); Mean Corpuscular Hemoglobin 29.1 pg (27.0-31.0); Mean Corpuscular Volume 87.2 fL (78.0-98.0); Mean Platelet Volume 7.8 fL (7.4-10.4); Platelet Count 667 thou/uL (130-400); Red Blood Cell (RBC) Count 3.79 mill/uL (4.70-6.10); White Blood Cell (WBC) Count 7.8 thou/uL (4.8-10.8)
[2019-10-17 17:45] LABS: ALT (SGPT) 27 U/L (8-55); AST (SGOT) 24 U/L (5-34); Albumin 4.1 g/dL (3.5-5.0); Alkaline Phosphatase 146 U/L (40-110); Anion Gap 16 mmol/L (10-20); BUN (Urea Nitrogen) 16 mg/dL (8.4-25.7); Bilirubin, Total 0.6 mg/dL (0.2-1.2); CK (CPK) 22 U/L (30-200); Calc. Creatinine Clearance 0 mL/min (70-130); Calcium 10.5 mg/dL (7.8-10.44); Carbon Dioxide 23 mmol/L (22-29); Chloride 101 mmol/L (98-107); Estimated GFR-MDRD 63; Globulin 4.5 g/dL (2.4-3.5); Glucose 105 mg/dL (70-105); Lipase 11 U/L (8-78); Potassium 5.2 mmol/L (3.5-5.1); Protein, Total 8.6 g/dL (6.0-8.3); Sodium 135 mmol/L (136-145)
--- NOTE | 2019-10-17 18:45 | CT ---
Exam: CT angiogram of the chest HISTORY: Elevated d-dimer. Anxiety. Chest tightness. History of pancreatic pseudocyst. COMPARISON: None TECHNIQUE: CT angiogram of the chest is performed in the axial plane. Three-dimensional reformatted i mages are submitted for interpretation FINDINGS: Mediastinum: No mass, lymphadenopathy or hematoma. HEART: Normal size. No significant pericardial fluid. Aorta: No aneurysm or dissection Upper solid abdominal viscera: Grossly no acute abnormality. There is a drainage catheter in the left upper quadrant, presumed to have been placed to drain the pancreatic pseudocyst. Limited evaluation. Redemonstration of perisplenic fluid with associated linear calcifications. Trachea and central bronchi: Patent Pleural spaces: No effusion Lung parenchyma: No masses or consolidation. Pneumothorax: None Osseous structures: No acute osseous abnormalities. There is a chronic compression fracture at T4 and T5 with associated kyphosis. Pulmonary arteries: Adequate contrast opacification pulmonary arterial system to the level of segment al arteries. No filling defect to suggest pulmonary embolism IMPRESSION: 1. No evidence of pulmonary artery embolism to the level of segmental arteries. 2. Additional findings as above.
== END 2019-10-17 19:30 | disposition home or self-care (01) ==
LOC: ERS 13:03
DX: F41.9 Anxiety disorder, unspecified (principal); R07.89 Other chest pain; H92.02 Otalgia, left ear; K21.9 Gastro-esophageal reflux disease without esophagitis; I10 Essential (primary) hypertension; Z79.899 Other long term (current) drug therapy
CPT/HCPCS: 36415; 71275; 80053; 82550; 83690; 84443; 84484; 85025; 85379; 93005; 96361; 96374; J2060; Q9967

== ENCOUNTER 2019-12-16 09:02 | Outpatient (CLI) | payer BC ==
[2019-12-16] MEDS ORDERED: Iopamidol 370 76% 100 ML VIAL ONE (11:37)
--- NOTE | 2019-12-16 12:00 | CT ---
CT ABDOMEN AND PELVIS WITH CONTRAST: Date; 12/16/2019 HISTORY: Pancreatic fluid. COMPARISON: CT abdomen and pelvis dated 10/30/2019. FINDINGS: Lung bases are clear. No pericardial effusion. There is a lumen apposing metal stent between the greater curvature of the stomach and the peripancre atic fluid collection. Through this stent are two separate drainage catheters extending to the left p aracolic gutter. Minimal fluid remains along the left paracolic gutter and has improved from the 10/05 exam. There is also a catheter extending to the second portion of the duodenum. Likely walled-off and from the left paracolic collection is a peripherally enhancing collec tion anterior to the left iliacus muscle which is inflamed. It is very likely that the lumen that had connected the left paracolic collection and the iliacus collection has obliterated. The peripherally enhancing collection which was previously measured at 3.5 cm along the left iliacus muscle now measu res 2.0 cm in size minimally indwelling fluid. Low grade edema of the left psoas muscle. Overall, thi s is slightly improved. There is a fat-containing right direct inguinal hernia. No evidence for bowel obstruction. The perisplenic collection has peripheral calcifications, likely old, prior to the most recent bout o f pancreatitis, and is unchanged. Splenic vein patent. Splenic artery patent. Gastroduodenal artery patent. Liver unremarkable. Gallbladder decompressed. No hydronephrosis. No retroperitoneal or periaortic kevin nopathy. IMPRESSION: 1. Marked interval size decrease of the anterior pararenal space fluid collection anterior to the pa ncreas. 2. Interval size decrease of left paracolic gutter collection with two indwelling catheters. 3. Increased wall size and decreased intraluminal fluid of the collection along the left iliacus mus yessica with some low grade inflammatory change of left iliacus and psoas muscles. The lumen between the left paracolic gutter collection containing the drainage catheters and the iliacus collection is like ly obliterated and noncommunicating. Overall, there is marked improvement. 4. No evidence for pseudoaneurysm or splenic vein occlusion. POS: [facility]
== END 2019-12-16 09:03 | disposition home or self-care (01) ==
LOC: BICCT 09:02
PROVIDERS: ATTEND Internal Medicine
DX: K86.89 Other specified diseases of pancreas (principal); M60.9 Myositis, unspecified
CPT/HCPCS: 74177

== ENCOUNTER 2020-07-02 06:52 | Outpatient (CLI) | payer BC, OTHER ==
[2020-07-02 13:53] LABS: #Basophils 0.1 10x3/uL (0.0-0.2); #Eosinphils 0.1 10x3/uL (0.0-0.5); #Monocytes 0.5 10x3/uL (0.0-1.1); #Neutrophils 3.3 10x3/uL (1.5-8.4); %Basophils 0.9 % (0.0-2.0); %Eosinophils 2.4 % (0.0-6.0); %Lymphocytes 32.2 % (18.0-47.0); %Monocytes 7.8 % (0.0-10.0); %Neutrophils 56.5 % (40.0-75.0); Hemoglobin 13.9 g/dL (14.0-18.0); Mean Corpuscular HGB CONC 33.5 G/DL (32.0-36.0); Mean Corpuscular Hemoglobin 31.1 PG (27.0-33.0); Mean Corpuscular Volume 92.8 fl (80.0-100.0); Mean Platelet Volume 8.9 fl (7.4-10.4); Platelet Count 256 10x3/uL (130-400); RBC Distribution Width 14.5 % (11.5-14.5); Red Blood Cell (RBC) Count 4.47 10x6/uL (4.40-5.80); White Blood Cell (WBC) Count 5.8 10x3/uL (4.5-11.0)
[2020-07-02 14:23] LABS: Anion Gap 19 mmol/L (10-20); BUN (Urea Nitrogen) 14 mg/dL (8.4-25.7); Calc. Creatinine Clearance 0 mL/min (70-130); Calcium 9.8 mg/dL (7.8-10.44); Carbon Dioxide 24 mmol/L (22-29); Chloride 101 mmol/L (98-107); Estimated GFR-MDRD Greater than 90; Glucose 95 mg/dL (70-105); Potassium 4.8 mmol/L (3.5-5.1); Sodium 139 mmol/L (136-145)
[2020-07-05 00:12] LABS: SARS-CoV-2 MS2 Positive; SARS-CoV-2 N Gene Negative; SARS-CoV-2 S Gene Negative; SARS-CoV-2 by NAA Not Detected (Not Detected); SARS-CoV-2 orf1ab Negative
--- NOTE | 2020-07-07 19:24 | EKG ---
Test Reason : Blood Pressure : / mmHG Vent. Rate : 049 BPM Atrial Rate : 049 BPM P-R Int : 134 ms QRS Dur : 086 ms QT Int : 422 ms P-R-T Axes : 035 062 049 degrees QTc Int : 381 ms Sinus bradycardia Otherwise normal ECG Confirmed by RICK PARR, DR. Matson ([id number]) on 07/07/2020 7:24:14 PM Referred By: ISIDRO Confirmed By:DR. Dano CABRERA MD
== END 2020-07-02 06:53 | disposition home or self-care (01) ==
LOC: LABBT 06:52
PROVIDERS: ATTEND Specialist
DX: Z01.818 Encounter for other preprocedural examination (principal); K40.20 Bilateral inguinal hernia, without obstruction or gangrene, not specified as recurrent; Z20.828 Contact with and (suspected) exposure to other viral communicable diseases
CPT/HCPCS: 80048; 85025; 87635; 93005; 93010; U0003

== ENCOUNTER 2020-07-07 06:03 | Day surgery (SDC) | payer BC ==
--- NOTE | 2020-07-06 07:54 | HP ---
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 Since that time, the patient has not had any intervening health problems. He now presents desiring robotic mesh repair of bilateral inguinal hernias, left greater than right. He understands the risks of infection, bleeding, reoperation, recurrence of hernia, postoperative course, its expectations. Questions were answered. MEDICATIONS: Aleve as needed. PAST MEDICAL HISTORY: ORIF femur fracture, ankle fracture, hypertension, history of right rotator cuff. PAST SURGICAL HISTORY: Left ankle surgery, ORIF. FAMILY HISTORY: Grandmother had a stroke. SOCIAL HISTORY: Tobacco cessation. Alcohol socially. ALLERGIES: NONE. PHYSICAL EXAMINATION: VITAL SIGNS: 186 pounds, 71 inches, 25 BMI, 134, 76, 49, 97.9 degrees. HEAD, EARS, EYES, NOSE AND THROAT: Unremarkable. LUNGS: Clear to auscultation. CARDIAC: Regular rate and rhythm. No murmur, rub or gallop. ABDOMEN: Soft, nontender. : Bilateral inguinal hernias, left larger than the right. Testicles normal. EXTREMITIES: Unremarkable. ASSESSMENT AND PLAN: Bilateral inguinal hernias. PLAN: Robot mesh repair outpatient surgery. Job ID: [id number]
[2020-07-06 09:34] VITALS: BMI 24.4
[2020-07-07] MEDS ORDERED: Ketorolac Tromethamine 30 MG/ML VIAL ONE (06:14)
[2020-07-07] MEDS ORDERED: Gabapentin 300 MG CAP ONE (06:15)
[2020-07-07] MEDS ORDERED: Acetaminophen 500 MG TAB ONE ×2 (06:15→06:24)
[2020-07-07] MEDS ORDERED: Bupivacaine 0.25% HCL 30 ML VIAL ONE (06:41)
[2020-07-07] MEDS ORDERED: Lidocaine 1% w/Epinephrine 1:100K 20 ML VIAL ONE (06:41)
[2020-07-07] MEDS ORDERED: Fentanyl 250 MCG/5 ML VIAL ONE (06:59)
[2020-07-07] MEDS ORDERED: Rocuronium Bromide 10 MG/ML (10ML VIAL) ONE (09:03)
[2020-07-07] MEDS ORDERED: PROPOFOL 200 MG/20 ML VIAL ONE (09:03)
[2020-07-07] MEDS ORDERED: Dexamethasone 20 MG/5 ML VIAL ONE (09:03)
[2020-07-07] MEDS ORDERED: Ondansetron PF 4 MG/2 ML Vial ONE (09:03)
[2020-07-07] MEDS ORDERED: EPHEDRINE 25 MG/5 ML SYRINGE ONE (09:03)
[2020-07-07] MEDS ORDERED: Lidocaine 1% PF 5 ML VIAL ONE (09:03)
[2020-07-07] MEDS ORDERED: Glycopyrrolate 0.2 MG/ML 5 ML SYRINGE ONE (09:03)
[2020-07-07] MEDS ORDERED: Sodium Chloride 0.9% 10 ML ONE (09:28)
[2020-07-07] MEDS ORDERED: Fentanyl 100 MCG/2 ML VIAL ONE (09:32)
--- NOTE | 2020-07-07 12:23 | OP ---
DATE OF PROCEDURE: 07/07/2020 PREOPERATIVE DIAGNOSES: COVID pneumonia, respiratory failure, ventilator, acute renal failure, poor IV access, obesity, right antecubital IV, right proximal forearm IV. PROCEDURE PERFORMED: Right femoral vein Trialysis catheter, left femoral vein triple-lumen catheter. ANESTHESIA: Sedation, ventilator. PROCEDURE IN DETAIL: At the patient's bedside in ICU with proper PPE precautions for COVID, both groins clipped of hair, pannus taped cephalad out of the way and both groins were prepared with ChloraPrep and draped in routine fashion. Right and left femoral veins cannulated with a trocar catheter, J-wire threaded, trocar catheter removed. Seldinger technique used to place a left femoral vein triple-lumen catheter, securing it with 3-0 nylon suture and right groin Trialysis catheter placed. Seldinger technique used, securing the catheter with 3-0 nylon suture, removing all J-wires. All ports aspirated blood, flushed with heparinized saline solution. Sterile dressings applied. The patient tolerated the procedure well. Job ID: [id number]
--- NOTE | 2020-07-07 12:35 | OP ---
DATE OF PROCEDURE: 07/07/2020 PREOPERATIVE DIAGNOSIS: Bilateral inguinal hernias. POSTOPERATIVE DIAGNOSIS: Bilateral inguinal hernias. PROCEDURE PERFORMED: Robot/laparoscopic mesh repair of bilateral inguinal hernias. ANESTHESIA: General and local 0.5% Marcaine 30 mL mixed with 1% Xylocaine with epinephrine 20 mL, total volume used. DESCRIPTION OF PROCEDURE: The patient was taken to the operating room. Under general anesthesia, Clark catheter placed at the beginning of procedure and removed at the end. Abdomen was prepared with ChloraPrep and draped in routine fashion. Local anesthetic was infiltrated in the skin and subcutaneous tissue about all port sites and for ilioinguinal nerve blocks bilaterally. Left paramedian supraumbilical incision was made and pneumoperitoneum to 15 mmHg was obtained with a Veress needle, replaced with an 11 balloon port and robot laparoscope inserted. Bilateral far lateral supraumbilical incision was made and 8 mm ports placed. Robot was docked appropriately and bilateral inguinal hernias identified. Peritoneal flaps dissected free from the anterior superior iliac spine toward the midline bilaterally, dissecting flaps laterally and medially, identifying Paul ligament bilaterally. Cord structures dissected free bilaterally, freeing the lipoma of the cord and hernia sac without defect in the hernia sac, dissecting free for least 8 cm over the cord structures. Good hemostasis had been obtained with the cautery. Inferior epigastric arteries bilaterally preserved. After excellent dissection and the space was prepared, mesh was obtained. 3D Bard mesh large placed on the right and appropriately on the left securing them each with Paul ligament with 2-0 Vicryl suture. Once tied mesh, further approximated the anterior abdominal wall lateral to the inferior epigastric vessels on both sides for the right and left hernias and using 2-0 Vicryl. Once mesh was properly positioned, good hemostasis was ensured. The peritoneal flap was closed with continuous suture of #3-0 V-Loc suture. Once this was completed, good hernia repair undertaken. Good hemostasis noted. All needles were removed. Counts were good. Pneumoperitoneum reduced. All instruments were removed. All skin incisions were approximated with a subdermal 4-0 Monocryl and [place] glue applied. Job ID: [id number]
== END 2020-07-07 14:45 | disposition home or self-care (01) ==
LOC: SDC 06:03
PROVIDERS: ATTEND Specialist
PROC: 0YUA4JZ Supplement Bilateral Inguinal Region with Synthetic Substitute, Percutaneous Endoscopic Approach (ICD-10-PCS; principal; 2020-07-07)
DX: K40.20 Bilateral inguinal hernia, without obstruction or gangrene, not specified as recurrent (principal); G89.21 Chronic pain due to trauma; M54.6 Pain in thoracic spine; Z79.899 Other long term (current) drug therapy; Z87.891 Personal history of nicotine dependence
CPT/HCPCS: C1781; J0690; J1100; J1885; J2405; J2704; J3010; S0020

== ENCOUNTER 2022-05-12 06:49 | Emergency (ER) | payer BC ==
[2022-05-12 08:08] LABS: #Lymphocytes 0.9 thou/uL (1.20-3.40); #Monocytes 1.5 thou/uL (0.11-0.59); #Neutrophils 10.4 thou/uL (1.40-6.50); %Basophils 0.1 % (0.0-1.0); %Eosinophils 0.2 % (0.0-10.0); %Lymphocytes 7.2 % (21.0-51.0); %Monocytes 11.4 % (0.0-10.0); %Neutrophils 81.2 % (42.0-75.0); Hemoglobin 13.6 g/dL (14.0-18.0); Mean Corpuscular HGB CONC 34.7 g/dL (32.0-36.0); Mean Corpuscular Hemoglobin 32.1 pg (27.0-31.0); Mean Corpuscular Volume 92.5 fL (78.0-98.0); Mean Platelet Volume 6.6 fL (7.4-10.4); Platelet Count 238 thou/uL (130-400); RBC Distribution Width 11.1 % (11.5-14.5); Red Blood Cell (RBC) Count 4.24 mill/uL (4.70-6.10); White Blood Cell (WBC) Count 12.9 thou/uL (4.8-10.8)
[2022-05-12 08:28] LABS: ALT (SGPT) 20 U/L (8-55); AST (SGOT) 16 U/L (5-34); Alkaline Phosphatase 62 U/L (40-110); Anion Gap 13 mmol/L (10-20); BUN (Urea Nitrogen) 21 mg/dL (8.4-25.7); Bilirubin, Total 0.9 mg/dL (0.2-1.2); Calc. Creatinine Clearance 0 mL/min (70-130); Calcium 9.1 mg/dL (7.8-10.44); Carbon Dioxide 23 mmol/L (22-29); Chloride 103 mmol/L (98-107); Estimated GFR 90; Globulin 3.8 g/dL (2.4-3.5); Glucose 135 mg/dL (70-105); Lipase 5 U/L (8-78); Protein, Total 7.8 g/dL (6.0-8.3); Sodium 135 mmol/L (136-145)
[2022-05-12] MEDS ORDERED: Iopamidol-370 76% 500 ML 1 ML ONE (09:22)
[2022-05-12 10:05] LABS: Bilirubin Negative (Negative); Blood, Urine Negative (Negative); Clarity Clear (Clear); Glucose, Urine (Dipstick) Normal (Negative); Ketone, Urine Negative (Negative); Leukocyte Negative Leu/uL (Negative); Nitrite Negative (Negative); Protein, Urine (Dipstick) 20 mg/dL (Neg-Trace); pH, Urine 6.5 (5.0-9.0)
[2022-05-12 10:06] LABS: Specific Gravity, Urine 1.065 (1.002-1.036)
== END 2022-05-12 11:16 | disposition home or self-care (01) ==
LOC: ERS 06:49
DX: R10.32 Left lower quadrant pain (principal); K21.9 Gastro-esophageal reflux disease without esophagitis; I10 Essential (primary) hypertension; Z79.899 Other long term (current) drug therapy
CPT/HCPCS: 74177; 80053; 81003; 83690; 85025; Q9967

== ENCOUNTER 2022-06-08 04:20 | Inpatient (IN) | payer BC ==
[2022-06-08] MEDS ORDERED: Dicyclomine 20 MG/2 ML VIAL ONE (04:45)
[2022-06-08 05:16] LABS: Hemoglobin 12.2 g/dL (14.0-18.0); Mean Corpuscular HGB CONC 31.8 g/dL (32.0-36.0); Mean Corpuscular Hemoglobin 29.9 pg (27.0-31.0); Mean Platelet Volume 6.9 fL (7.4-10.4); Platelet Count 347 thou/uL (130-400); RBC Distribution Width 12.8 % (11.5-14.5); Red Blood Cell (RBC) Count 4.09 mill/uL (4.70-6.10)
[2022-06-08 05:27] LABS: ALT (SGPT) Less than 7 U/L (8-55); AST (SGOT) 16 U/L (5-34); Albumin 3.1 g/dL (3.5-5.0); Alkaline Phosphatase 87 U/L (40-110); Anion Gap 17 mmol/L (10-20); BUN (Urea Nitrogen) 43 mg/dL (8.4-25.7); Bilirubin, Total 0.6 mg/dL (0.2-1.2); Calc. Creatinine Clearance 0 mL/min (70-130); Calcium 9.1 mg/dL (7.8-10.44); Carbon Dioxide 21 mmol/L (22-29); Chloride 98 mmol/L (98-107); Estimated GFR 74; Globulin 4.4 g/dL (2.4-3.5); Glucose 115 mg/dL (70-105); Lipase 46 U/L (8-78); Potassium 4.5 mmol/L (3.5-5.1); Protein, Total 7.5 g/dL (6.0-8.3); Sodium 131 mmol/L (136-145)
[2022-06-08 05:35] LABS: Band 51 % (5-11); Eosinophils 1 % (0-10); Lymphocytes 10 % (21-51); MDiff Complete? YES; Metamyelocyte 3 % (0-0); Monocytes 5 % (0-10); Myelocyte 1 % (0-0); Neutrophil 26 % (42-75); Platelet Morphology Comment Appears Adequate; RBC Morphology Normal; Reflex for Review?? NO
[2022-06-08] MEDS ORDERED: Piperacillin/Tazobactam 3.375 GM VIAL ONE (05:46)
[2022-06-08] MEDS ORDERED: Vancomycin 1 GM/200 ML BAG ONE (06:21)
[2022-06-08 08:27] LABS: Bacteria/HPF None Seen HPF (None Seen); Bilirubin Negative (Negative); Blood, Urine Negative (Negative); Clarity Clear (Clear); Glucose, Urine (Dipstick) Normal (Negative); Ketone, Urine Trace mg/dL (Negative); Leukocyte Negative Leu/uL (Negative); Nitrite Negative (Negative); Protein, Urine (Dipstick) 30 mg/dL (Neg-Trace); RBC/HPF 0-3 HPF (0-3); Squamous Epithelial None Seen HPF (0-3); Urobilinogen Normal mg/dL (Less than 2); WBC/HPF 0-3 HPF (0-3); pH, Urine 6.5 (5.0-9.0)
[2022-06-08 08:28] LABS: Specific Gravity, Urine Greater than 1.060 (1.002-1.036)
[2022-06-08] MEDS ORDERED: Iopamidol-370 76% 500 ML 1 ML ONE (08:52)
[2022-06-08] MEDS ORDERED: Ondansetron PF 4 MG/2 ML Vial IVP PRN (09:50)
[2022-06-08] MEDS ORDERED: Sodium Chloride 0.9% 1,000 ML IV SCH (09:50)
[2022-06-08] MEDS ORDERED: hydrALAZINE 20 MG/ML VIAL SLOW IVP PRN (09:50)
[2022-06-08] MEDS ORDERED: Acetaminophen 500 MG TAB PO PRN (09:50)
[2022-06-08] MEDS ORDERED: Ibuprofen 200 MG TAB PO PRN (09:50)
[2022-06-08] MEDS ORDERED: Ondansetron ODT 4 MG TAB PO PRN (09:50)
[2022-06-08] MEDS ORDERED: GoLYTELY 4,000 ml Bottle PO SCH ×2 (09:50→14:30)
[2022-06-08] MEDS ORDERED: Morphine 4 MG/ML VIAL ONE (10:06)
[2022-06-08] MEDS ORDERED: Ondansetron PF 4 MG/2 ML Vial ONE (10:06)
[2022-06-08] MEDS ORDERED: Ketorolac Tromethamine 30 MG/ML VIAL IVP PRN (10:53)
[2022-06-08] MEDS ORDERED: Acetaminophen 500 MG TAB PO SCH (11:00)
[2022-06-08] MEDS ORDERED: Ketorolac Tromethamine 30 MG/ML VIAL IVP SCH (11:00)
[2022-06-08] MEDS: Piperacillin/Tazobactam 4.5 GM in Sodium Chloride 0.9% 100 ML IVPB SCH ×2 (12:24→23:21)
[2022-06-08] MEDS: Morphine 4 MG/ML VIAL SLOW IVP PRN ×2 (16:37→20:18)
[2022-06-08] MEDS: Gabapentin 300 MG CAP PO SCH ×2 (16:37→20:30)
[2022-06-08] MEDS: Famotidine/PF 20 mg/2ml Vial SLOW IVP SCH (20:23)
[2022-06-08] MEDS: Enoxaparin Sodium 40 MG/0.4 ML SYRINGE SC SCH (20:32)
[2022-06-08] MEDS: Vancomycin 1 GM in Premix Bag 1 BAG IVPB SCH (22:00)
[2022-06-09] MEDS: Sodium Chloride 0.9% 1,000 ML IV SCH ×3 (04:16→16:58)
[2022-06-09 05:27] LABS: ALT (SGPT) 15 U/L (8-55); AST (SGOT) 24 U/L (5-34); Albumin 2.6 g/dL (3.5-5.0); Alkaline Phosphatase 86 U/L (40-110); Anion Gap 18 mmol/L (10-20); BUN (Urea Nitrogen) 44 mg/dL (8.4-25.7); Bilirubin, Total 0.6 mg/dL (0.2-1.2); Calc. Creatinine Clearance 67 mL/min (70-130); Calcium 8.2 mg/dL (7.8-10.44); Carbon Dioxide 23 mmol/L (22-29); Chloride 98 mmol/L (98-107); Estimated GFR 50; Globulin 3.7 g/dL (2.4-3.5); Glucose 105 mg/dL (70-105); Protein, Total 6.3 g/dL (6.0-8.3); Sodium 135 mmol/L (136-145)
[2022-06-09 05:45] LABS: Band 61 % (5-11); Eosinophils 1 % (0-10); Hemoglobin 11.3 g/dL (14.0-18.0); Lymphocytes 8 % (21-51); MDiff Complete? YES; Mean Corpuscular HGB CONC 31.8 g/dL (32.0-36.0); Mean Corpuscular Hemoglobin 30.3 pg (27.0-31.0); Mean Corpuscular Volume 95.2 fL (78.0-98.0); Mean Platelet Volume 6.7 fL (7.4-10.4); Metamyelocyte 1 % (0-0); Monocytes 2 % (0-10); Neutrophil 27 % (42-75); Platelet Count 329 thou/uL (130-400); Red Blood Cell (RBC) Count 3.72 mill/uL (4.70-6.10); Toxic Granulation SLIGHT; White Blood Cell (WBC) Count 17.1 thou/uL (4.8-10.8)
[2022-06-09] MEDS: Piperacillin/Tazobactam 4.5 GM in Sodium Chloride 0.9% 100 ML IVPB SCH ×2 (05:55→20:50)
[2022-06-09] MEDS: Gabapentin 300 MG CAP PO SCH ×3 (08:41→20:53)
[2022-06-09] MEDS: Famotidine/PF 20 mg/2ml Vial SLOW IVP SCH ×2 (08:41→20:52)
[2022-06-09] MEDS: Vancomycin 1 GM in Premix Bag 1 BAG IVPB SCH (08:42)
[2022-06-09 08:49] LABS: SARS-CoV-2 NAA Rapid Test Not Detected (NotDetected)
[2022-06-09] MEDS ORDERED: FLU VACC QS2022-23(6MOS UP)/PF 60 MCG/0.5 ML SYRINGE IM ONE (09:00)
[2022-06-09] MEDS ORDERED: Albumin 5% 500 ML ONE ×2 (12:07→17:14)
[2022-06-09] MEDS ORDERED: fentaNYL Citrate/PF 100 MCG/2 ML SYRINGE ONE ×2 (12:41→17:34)
[2022-06-09] MEDS ORDERED: SUGAMMADEX SODIUM 200 MG/2 ML VIAL ONE (12:42)
[2022-06-09] MEDS ORDERED: Ondansetron PF 4 MG/2 ML Vial ONE ×2 (12:42→12:58)
[2022-06-09] MEDS ORDERED: Phenylephrine 10 MG/ML VIAL ONE (12:42)
[2022-06-09] MEDS ORDERED: Lidocaine 1% PF 5 ML VIAL ONE (12:43)
[2022-06-09] MEDS ORDERED: Sodium Chloride 0.9% 100 ML ONE (12:52)
[2022-06-09] MEDS ORDERED: Piperacillin/Tazobactam 3.375 GM VIAL ONE (12:52)
[2022-06-09] MEDS ORDERED: Succinylcholine 200 MG/10 ml SYRINGE FS ONE (12:58)
[2022-06-09] MEDS ORDERED: Rocuronium Bromide 10 MG/ML (10ML VIAL) ONE (12:58)
[2022-06-09] MEDS ORDERED: PROPOFOL 200 MG/20 ML VIAL ONE (12:58)
[2022-06-09] MEDS ORDERED: ePHEDrine 50 MG/ML VIAL ONE (12:58)
[2022-06-09] MEDS ORDERED: PHENYLEPHRINE-NS 100 MCG/ML 10 ML SYRINGE ONE (12:58)
[2022-06-09] MEDS ORDERED: Bupivacaine 0.25% HCL 30 ML VIAL ONE (13:13)
[2022-06-09] MEDS ORDERED: EPINEPHrine 1 MG/ML AMP ONE (13:13)
[2022-06-09] MEDS ORDERED: Norepinephrine 4 MG/4 ML VIAL ONE (13:42)
[2022-06-09] MEDS ORDERED: Piperacillin/Tazobactam 3.375 GM in Sodium Chloride 0.9% 100 ML IVPB SCH (14:00)
[2022-06-09] MEDS ORDERED: HYDROmorphone 2 MG/ML VIAL SLOW IVP PRN (17:08)
[2022-06-09] MEDS ORDERED: Ondansetron HCl/PF 4 MG/2 ML Vial IVP PRN (17:08)
[2022-06-09] MEDS ORDERED: Promethazine HCl 25 MG/ML VIAL IVPB PRN (17:08)
[2022-06-09] MEDS ORDERED: PACU-Morphine 4MG/ML VIAL SLOW IVP PRN (17:08)
[2022-06-09] MEDS ORDERED: Promethazine HCl 25 MG/ML VIAL IM PRN ×2 (17:08→17:47)
[2022-06-09] MEDS ORDERED: Albumin 5% 0 ML ONE (17:13)
[2022-06-09] MEDS ORDERED: Acetaminophen 500 MG TAB PO SCH (17:30)
[2022-06-09] MEDS ORDERED: Sodium Chloride 0.9% 1,000 ML IV SCH (17:30)
[2022-06-09] MEDS ORDERED: fentaNYL Citrate/PF 2,000 MCG in Sodium Chloride 0.9% 60 ML IV PRN (17:47)
[2022-06-09] MEDS ORDERED: diphenhydrAMINE 25 MG CAP PO PRN (17:47)
[2022-06-09] MEDS ORDERED: diphenhydrAMINE 50 MG/ML VIAL IVP PRN (17:47)
[2022-06-09] MEDS ORDERED: Zolpidem Tartrate 5 MG TAB PO PRN (17:47)
[2022-06-09] MEDS ORDERED: Ondansetron PF 4 MG/2 ML Vial IVP PRN (17:47)
[2022-06-09] MEDS ORDERED: diphenhydrAMINE 50 MG/ML VIAL IM PRN (17:47)
[2022-06-09] MEDS ORDERED: Naloxone HCl 0.4 mg/ml Vial IV PRN (17:47)
[2022-06-09] MEDS ORDERED: Communication Order-Pharmacy FS SCH (18:00)
[2022-06-09] MEDS: Acetaminophen 500 MG TAB PO SCH (19:22)
[2022-06-09] MEDS: Albumin 25% 25 GM/100 ML BOT IVPB SCH (19:23)
[2022-06-09 20:50] LABS: Band 39 % (5-11); Hemoglobin 10.1 g/dL (14.0-18.0); Lymphocytes 2 % (21-51); MDiff Complete? YES; Mean Corpuscular HGB CONC 32.4 g/dL (32.0-36.0); Mean Corpuscular Hemoglobin 30.7 pg (27.0-31.0); Mean Corpuscular Volume 94.7 fL (78.0-98.0); Mean Platelet Volume 6.5 fL (7.4-10.4); Monocytes 4 % (0-10); Neutrophil 55 % (42-75); Platelet Count 249 thou/uL (130-400)
[2022-06-09] MEDS: Enoxaparin Sodium 40 MG/0.4 ML SYRINGE SC SCH (20:51)
[2022-06-10] MEDS: Acetaminophen 500 MG TAB PO SCH ×6 (01:24→23:38)
[2022-06-10] MEDS: Albumin 25% 25 GM/100 ML BOT IVPB SCH ×4 (01:24→18:00)
[2022-06-10] MEDS: Sodium Chloride 0.9% 1,000 ML IV SCH ×2 (04:22→04:38)
[2022-06-10 04:41] LABS: Phosphorus 4.1 mg/dL (2.3-4.7)
[2022-06-10 04:47] LABS: ALT (SGPT) 19 U/L (8-55); AST (SGOT) 32 U/L (5-34); Albumin 2.8 g/dL (3.5-5.0); Alkaline Phosphatase 90 U/L (40-110); Anion Gap 14 mmol/L (10-20); BUN (Urea Nitrogen) 36 mg/dL (8.4-25.7); Bilirubin, Total 0.7 mg/dL (0.2-1.2); Calc. Creatinine Clearance 85 mL/min (70-130); Calcium 7.3 mg/dL (7.8-10.44); Carbon Dioxide 22 mmol/L (22-29); Chloride 107 mmol/L (98-107); Estimated GFR 67; Globulin 2.5 g/dL (2.4-3.5); Glucose 89 mg/dL (70-105); Magnesium 3.3 mg/dL (1.6-2.6); Potassium 3.3 mmol/L (3.5-5.1); Protein, Total 5.3 g/dL (6.0-8.3); Sodium 140 mmol/L (136-145)
[2022-06-10 04:49] LABS: Hemoglobin 8.5 g/dL (14.0-18.0); Mean Corpuscular HGB CONC 31.9 g/dL (32.0-36.0); Mean Corpuscular Hemoglobin 30.4 pg (27.0-31.0); Mean Corpuscular Volume 95.4 fL (78.0-98.0); Mean Platelet Volume 6.2 fL (7.4-10.4); Platelet Count 214 thou/uL (130-400); RBC Distribution Width 13.1 % (11.5-14.5); White Blood Cell (WBC) Count 13.6 thou/uL (4.8-10.8)
[2022-06-10 04:50] LABS: Band 45 % (5-11); Lymphocytes 5 % (21-51); MDiff Complete? YES; Monocytes 2 % (0-10); Neutrophil 48 % (42-75); RBC Morphology Normal
[2022-06-10 05:57] VITALS: BMI 28.7
[2022-06-10] MEDS: Piperacillin/Tazobactam 4.5 GM in Sodium Chloride 0.9% 100 ML IVPB SCH ×3 (06:13→20:47)
[2022-06-10] MEDS: Gabapentin 300 MG CAP PO SCH ×3 (07:56→20:48)
[2022-06-10] MEDS: Famotidine/PF 20 mg/2ml Vial SLOW IVP SCH ×2 (08:00→20:48)
[2022-06-10] MEDS ORDERED: Sodium Chloride 0.9% 1,000 ML IV SCH (10:10)
[2022-06-10] MEDS ORDERED: Potassium Chloride 40 MEQ in Premix Bag 1 BAG IVPB SCH (11:30)
[2022-06-10 13:14] LABS: Band 32 % (5-11); Hemoglobin 8.5 g/dL (14.0-18.0); Lymphocytes 2 % (21-51); MDiff Complete? YES; Mean Corpuscular HGB CONC 31.5 g/dL (32.0-36.0); Mean Corpuscular Hemoglobin 30.2 pg (27.0-31.0); Mean Corpuscular Volume 95.8 fL (78.0-98.0); Mean Platelet Volume 6.5 fL (7.4-10.4); Monocytes 4 % (0-10); Myelocyte 2 % (0-0); Neutrophil 60 % (42-75); Platelet Count 232 thou/uL (130-400); Platelet Morphology Comment Appears Adequate; RBC Distribution Width 13.3 % (11.5-14.5); RBC Morphology Normal; Red Blood Cell (RBC) Count 2.81 mill/uL (4.70-6.10); White Blood Cell (WBC) Count 13.4 thou/uL (4.8-10.8)
[2022-06-10] MEDS ORDERED: Ondansetron ORAL SOLN. 4 MG/5 ML UDCUP PO PRN (13:52)
[2022-06-10] MEDS ORDERED: Ondansetron ODT 8 MG TAB SL PRN (13:52)
[2022-06-10] MEDS ORDERED: Ondansetron ODT 4 MG TAB PO PRN (14:00)
[2022-06-10] MEDS: Potassium Chloride 20 MEQ in Lactated Ringer's 1,000 ML IV SCH (14:52)
[2022-06-10] MEDS: Enoxaparin Sodium 40 MG/0.4 ML SYRINGE SC SCH (20:48)
[2022-06-10] MEDS: Tamsulosin HCl 0.4 MG CAP PO SCH (20:48)
[2022-06-11] MEDS: Potassium Chloride 20 MEQ in Lactated Ringer's 1,000 ML IV SCH ×2 (00:36→08:54)
[2022-06-11 04:00] LABS: #Eosinphils 0.3 thou/uL (0.0-0.7); #Lymphocytes 0.6 thou/uL (1.20-3.40); #Monocytes 0.4 thou/uL (0.11-0.59); #Neutrophils 13.4 thou/uL (1.40-6.50); %Basophils 0.1 % (0.0-1.0); %Eosinophils 1.8 % (0.0-10.0); %Lymphocytes 4.1 % (21.0-51.0); %Monocytes 2.9 % (0.0-10.0); %Neutrophils 91.2 % (42.0-75.0); Hemoglobin 8.5 g/dL (14.0-18.0); Mean Corpuscular Hemoglobin 30.6 pg (27.0-31.0); Mean Corpuscular Volume 95.6 fL (78.0-98.0); Mean Platelet Volume 6.2 fL (7.4-10.4); Platelet Count 216 thou/uL (130-400); RBC Distribution Width 13.3 % (11.5-14.5); Red Blood Cell (RBC) Count 2.78 mill/uL (4.70-6.10); White Blood Cell (WBC) Count 14.7 thou/uL (4.8-10.8)
[2022-06-11 04:14] LABS: Anion Gap 13 mmol/L (10-20); BUN (Urea Nitrogen) 28 mg/dL (8.4-25.7); Calc. Creatinine Clearance 98 mL/min (70-130); Calcium 7.9 mg/dL (7.8-10.44); Carbon Dioxide 22 mmol/L (22-29); Chloride 106 mmol/L (98-107); Estimated GFR 79; Glucose 121 mg/dL (70-105); Potassium 3.5 mmol/L (3.5-5.1); Sodium 137 mmol/L (136-145)
[2022-06-11] MEDS: Acetaminophen 500 MG TAB PO SCH ×4 (05:36→23:46)
[2022-06-11] MEDS: Piperacillin/Tazobactam 4.5 GM in Sodium Chloride 0.9% 100 ML IVPB SCH ×3 (05:36→21:04)
[2022-06-11] MEDS: Famotidine/PF 20 mg/2ml Vial SLOW IVP SCH ×2 (08:57→21:05)
[2022-06-11] MEDS: Gabapentin 300 MG CAP PO SCH (08:57)
[2022-06-11] MEDS ORDERED: Iopamidol 370 76% 50 ML VIAL FS ONE (11:27)
[2022-06-11 13:03] LABS: ALT (SGPT) 22 U/L (8-55); AST (SGOT) 38 U/L (5-34); Albumin 3.4 g/dL (3.5-5.0); Alkaline Phosphatase 110 U/L (40-110); Anion Gap 13 mmol/L (10-20); BUN (Urea Nitrogen) 24 mg/dL (8.4-25.7); Bilirubin, Total 0.6 mg/dL (0.2-1.2); Calc. Creatinine Clearance 103 mL/min (70-130); Calcium 8.2 mg/dL (7.8-10.44); Carbon Dioxide 21 mmol/L (22-29); Chloride 106 mmol/L (98-107); Estimated GFR 84; Glucose 152 mg/dL (70-105); Magnesium 2.7 mg/dL (1.6-2.6); Phosphorus 1.5 mg/dL (2.3-4.7); Potassium 3.6 mmol/L (3.5-5.1); Protein, Total 6.4 g/dL (6.0-8.3); Sodium 136 mmol/L (136-145)
[2022-06-11] MEDS ORDERED: Potassium Chloride 20 MEQ in Lactated Ringer's 1,000 ML IV SCH (13:18)
[2022-06-11] MEDS ORDERED: Furosemide 40 MG/4 ML VIAL SLOW IVP SCH (13:30)
[2022-06-11] MEDS ORDERED: Sodium Phosphate 30 MMOL in Sodium Chloride 0.9% 250 ML 250 ML IVPB SCH (13:30)
[2022-06-11] MEDS: Enoxaparin Sodium 40 MG/0.4 ML SYRINGE SC SCH (21:05)
[2022-06-11] MEDS: Tamsulosin HCl 0.4 MG CAP PO SCH (21:05)
[2022-06-12] MEDS: Acetaminophen 500 MG TAB PO SCH ×4 (05:41→23:51)
[2022-06-12] MEDS: Piperacillin/Tazobactam 4.5 GM in Sodium Chloride 0.9% 100 ML IVPB SCH ×3 (05:42→22:10)
[2022-06-12 05:50] LABS: #Eosinphils 0.3 thou/uL (0.0-0.7); #Lymphocytes 0.8 thou/uL (1.20-3.40); #Monocytes 0.7 thou/uL (0.11-0.59); #Neutrophils 11.5 thou/uL (1.40-6.50); %Basophils 0.1 % (0.0-1.0); %Eosinophils 2.4 % (0.0-10.0); %Lymphocytes 5.8 % (21.0-51.0); %Monocytes 5.1 % (0.0-10.0); %Neutrophils 86.6 % (42.0-75.0); Hemoglobin 8.7 g/dL (14.0-18.0); Mean Corpuscular HGB CONC 31.7 g/dL (32.0-36.0); Mean Corpuscular Volume 94.7 fL (78.0-98.0); Mean Platelet Volume 6.1 fL (7.4-10.4); Platelet Count 196 thou/uL (130-400); RBC Distribution Width 13.2 % (11.5-14.5); Red Blood Cell (RBC) Count 2.89 mill/uL (4.70-6.10); White Blood Cell (WBC) Count 13.2 thou/uL (4.8-10.8)
[2022-06-12 06:15] LABS: Phosphorus 3.8 mg/dL (2.3-4.7)
[2022-06-12 06:17] LABS: Anion Gap 11 mmol/L (10-20); BUN (Urea Nitrogen) 18 mg/dL (8.4-25.7); Calc. Creatinine Clearance 124 mL/min (70-130); Calcium 8.1 mg/dL (7.8-10.44); Carbon Dioxide 28 mmol/L (22-29); Chloride 103 mmol/L (98-107); Estimated GFR 89; Glucose 135 mg/dL (70-105); Potassium 3.1 mmol/L (3.5-5.1); Sodium 139 mmol/L (136-145)
[2022-06-12] MEDS ORDERED: Potassium Chloride 20 MEQ TAB PO SCH ×3 (08:00→20:00)
[2022-06-12] MEDS ORDERED: traMADol HCl 50 MG TAB PO PRN (09:02)
[2022-06-12] MEDS: Docusate 100 MG CAP PO SCH (09:24)
[2022-06-12] MEDS: Famotidine/PF 20 mg/2ml Vial SLOW IVP SCH ×2 (09:25→20:10)
[2022-06-12] MEDS: FLU VACC QS2022-23(6MOS UP)/PF 60 MCG/0.5 ML SYRINGE IM ONE ×2 (12:51→13:08)
[2022-06-12] MEDS: traMADol HCl 50 MG TAB PO PRN ×2 (13:06→18:44)
[2022-06-12] MEDS ORDERED: Furosemide 40 MG/4 ML VIAL SLOW IVP SCH (14:00)
[2022-06-12] MEDS: Tamsulosin HCl 0.4 MG CAP PO SCH (20:09)
[2022-06-12] MEDS: Enoxaparin Sodium 40 MG/0.4 ML SYRINGE SC SCH (20:10)
[2022-06-13] MEDS: Acetaminophen 500 MG TAB PO SCH ×3 (05:48→18:13)
[2022-06-13] MEDS: Piperacillin/Tazobactam 4.5 GM in Sodium Chloride 0.9% 100 ML IVPB SCH ×3 (05:50→20:35)
[2022-06-13] MEDS: traMADol HCl 50 MG TAB PO PRN ×3 (06:04→18:13)
[2022-06-13 06:35] LABS: Anion Gap 15 mmol/L (10-20); BUN (Urea Nitrogen) 18 mg/dL (8.4-25.7); Calc. Creatinine Clearance 127 mL/min (70-130); Calcium 8.5 mg/dL (7.8-10.44); Carbon Dioxide 24 mmol/L (22-29); Chloride 103 mmol/L (98-107); Estimated GFR 91; Glucose 124 mg/dL (70-105); Magnesium 1.8 mg/dL (1.6-2.6); Potassium 3.7 mmol/L (3.5-5.1); Sodium 138 mmol/L (136-145)
[2022-06-13 06:41] LABS: Band 11 % (5-11); Hemoglobin 8.4 g/dL (14.0-18.0); Lymphocytes 4 % (21-51); MDiff Complete? YES; Mean Corpuscular HGB CONC 32.4 g/dL (32.0-36.0); Mean Corpuscular Hemoglobin 30.5 pg (27.0-31.0); Mean Corpuscular Volume 94.1 fL (78.0-98.0); Mean Platelet Volume 6.2 fL (7.4-10.4); Metamyelocyte 2 % (0-0); Monocytes 10 % (0-10); Neutrophil 73 % (42-75); Platelet Count 203 thou/uL (130-400); Red Blood Cell (RBC) Count 2.76 mill/uL (4.70-6.10); White Blood Cell (WBC) Count 15.4 thou/uL (4.8-10.8)
[2022-06-13 07:23] LABS: Phosphorus 2.6 mg/dL (2.3-4.7)
[2022-06-13] MEDS: Nadolol 40 MG TAB PO SCH (08:54)
[2022-06-13] MEDS: Polyethylene Glycol 3350 17 GM Packet PO SCH (08:56)
[2022-06-13] MEDS: Docusate 100 MG CAP PO SCH (08:56)
[2022-06-13] MEDS: Famotidine/PF 20 mg/2ml Vial SLOW IVP SCH ×2 (08:57→20:36)
[2022-06-13] MEDS: Tamsulosin HCl 0.4 MG CAP PO SCH (20:36)
[2022-06-13] MEDS: Enoxaparin Sodium 40 MG/0.4 ML SYRINGE SC SCH (20:36)
[2022-06-14] MEDS: Acetaminophen 500 MG TAB PO SCH ×4 (00:07→17:14)
[2022-06-14] MEDS: traMADol HCl 50 MG TAB PO PRN ×4 (00:07→17:14)
[2022-06-14] MEDS: ALPRAZolam 0.5 MG TAB PO PRN (00:09)
[2022-06-14] MEDS: Piperacillin/Tazobactam 4.5 GM in Sodium Chloride 0.9% 100 ML IVPB SCH (05:53)
[2022-06-14 06:22] LABS: Anion Gap 13 mmol/L (10-20); BUN (Urea Nitrogen) 16 mg/dL (8.4-25.7); Calc. Creatinine Clearance 154 mL/min (70-130); Calcium 8.3 mg/dL (7.8-10.44); Carbon Dioxide 25 mmol/L (22-29); Chloride 99 mmol/L (98-107); Estimated GFR 103; Glucose 103 mg/dL (70-105); Sodium 133 mmol/L (136-145)
[2022-06-14 07:04] LABS: Hemoglobin 8.7 g/dL (14.0-18.0); Mean Corpuscular Hemoglobin 29.9 pg (27.0-31.0); Mean Corpuscular Volume 93.5 fL (78.0-98.0); Mean Platelet Volume 6.2 fL (7.4-10.4); Platelet Count 205 thou/uL (130-400); RBC Distribution Width 13.3 % (11.5-14.5); Red Blood Cell (RBC) Count 2.91 mill/uL (4.70-6.10); White Blood Cell (WBC) Count 16.2 thou/uL (4.8-10.8)
[2022-06-14 07:09] LABS: Band 13 % (5-11); Eosinophils 2 % (0-10); Lymphocytes 4 % (21-51); MDiff Complete? YES; Monocytes 9 % (0-10); Neutrophil 72 % (42-75)
[2022-06-14] MEDS: Famotidine/PF 20 mg/2ml Vial SLOW IVP SCH (08:58)
[2022-06-14] MEDS: Docusate 100 MG CAP PO SCH (08:58)
[2022-06-14] MEDS: Polyethylene Glycol 3350 17 GM Packet PO SCH (08:59)
[2022-06-14] MEDS: Nadolol 40 MG TAB PO SCH (08:59)
[2022-06-14] MEDS ORDERED: Lidocaine 4% Topical Sol 50 ML BOT TOP SCH (09:15)
[2022-06-14] MEDS: Tamsulosin HCl 0.4 MG CAP PO SCH (20:02)
[2022-06-14] MEDS: Amoxicillin/Potassium Clav 875 MG TAB PO SCH (20:02)
[2022-06-14] MEDS: Enoxaparin Sodium 40 MG/0.4 ML SYRINGE SC SCH (20:02)
[2022-06-15] MEDS: traMADol HCl 50 MG TAB PO PRN ×3 (00:20→12:22)
[2022-06-15] MEDS: Acetaminophen 500 MG TAB PO SCH ×3 (00:20→12:22)
[2022-06-15] MEDS: ALPRAZolam 0.5 MG TAB PO PRN (00:21)
[2022-06-15] MEDS: Docusate 100 MG CAP PO SCH (08:23)
[2022-06-15] MEDS: Nadolol 40 MG TAB PO SCH (08:23)
[2022-06-15] MEDS: Amoxicillin/Potassium Clav 875 MG TAB PO SCH (08:25)
[2022-06-15] MEDS: Polyethylene Glycol 3350 17 GM Packet PO SCH (08:26)
[2022-06-15 12:14] VITALS: BP 118/76; TEMP 98.1
== END 2022-06-15 15:30 | disposition home health service (06) | DRG 853 ==
LOC: ERS 04:20 → SURG B 08:48
PROVIDERS: ADMIT Specialist; ATTEND Internal Medicine
PROC: 0DTM0ZZ Resection of Descending Colon, Open Approach (ICD-10-PCS; principal; 2022-06-08)
PROC: 0FT40ZZ Resection of Gallbladder, Open Approach (ICD-10-PCS; 2022-06-08)
PROC: 0JB80ZZ Excision of Abdomen Subcutaneous Tissue and Fascia, Open Approach (ICD-10-PCS; 2022-06-08)
PROC: 3E03329 Introduction of Other Anti-infective into Peripheral Vein, Percutaneous Approach (ICD-10-PCS; 2022-06-08)
PROC: 3E04329 Introduction of Other Anti-infective into Central Vein, Percutaneous Approach (ICD-10-PCS; 2022-06-10)
DX: A41.9 Sepsis, unspecified organism (principal); K68.19 Other retroperitoneal abscess; K63.2 Fistula of intestine; N17.9 Acute kidney failure, unspecified; K55.9 Vascular disorder of intestine, unspecified; E87.1 Hypo-osmolality and hyponatremia; K80.10 Calculus of gallbladder with chronic cholecystitis without obstruction; L02.211 Cutaneous abscess of abdominal wall; I96 Gangrene, not elsewhere classified; Z20.822 Contact with and (suspected) exposure to COVID-19; N18.9 Chronic kidney disease, unspecified; E66.01 Morbid (severe) obesity due to excess calories; K57.30 Diverticulosis of large intestine without perforation or abscess without bleeding; D63.1 Anemia in chronic kidney disease; E86.0 Dehydration; I12.9 Hypertensive chronic kidney disease with stage 1 through stage 4 chronic kidney disease, or unspecified chronic kidney disease; N40.1 Benign prostatic hyperplasia with lower urinary tract symptoms; R33.8 Other retention of urine; G47.00 Insomnia, unspecified; F41.9 Anxiety disorder, unspecified; E87.6 Hypokalemia; Z28.21 Immunization not carried out because of patient refusal; Z68.33 Body mass index [BMI] 33.0-33.9, adult; Z98.890 Other specified postprocedural states; Z79.899 Other long term (current) drug therapy; Z82.49 Family history of ischemic heart disease and other diseases of the circulatory system; F10.21 Alcohol dependence, in remission
CPT/HCPCS: 36415; 36416; 71045; 71275; 74177; 80048; 80053; 81003; 81015; 83605; 83690; 83735; 84100; 85025; 86850; 86900; 86901; 87040; 88304; 88307; 90471; 90686; 96365; 96367; 96372; 96375; 97139; A4649; C1751; C1776; G0008; J0171; J0360; J1642; J1650; J1885; J1940; J2270; J2370; J2405; J2543; J2704; J3370; J3480; J3490; J7050; J7120; P9045; P9047; Q9967; S0020; S0028; U0002; U0003; U0005

== ENCOUNTER 2022-06-25 07:43 | Emergency (ER) | payer BC | END 2022-06-25 08:55 | disposition home or self-care (01) | LOC: ERS 07:43 | DX: T85.698A Other mechanical complication of other specified internal prosthetic devices, implants and grafts, initial encounter (principal); K21.9 Gastro-esophageal reflux disease without esophagitis; I10 Essential (primary) hypertension | CPT/HCPCS: 99283 ==

== ENCOUNTER 2022-07-26 11:07 | Day surgery (SDC) | payer BC ==
[2022-07-25 10:06] VITALS: BMI 26.4
[2022-07-26] MEDS ORDERED: Ketorolac Tromethamine 30 MG/ML VIAL ONE (11:47)
[2022-07-26] MEDS ORDERED: Acetaminophen 500 MG TAB ONE (11:47)
[2022-07-26 12:48] LABS: #Eosinphils 0.3 thou/uL (0.0-0.7); #Lymphocytes 1.3 thou/uL (1.20-3.40); #Monocytes 0.7 thou/uL (0.11-0.59); #Neutrophils 5.1 thou/uL (1.40-6.50); %Basophils 0.5 % (0.0-1.0); %Eosinophils 4.3 % (0.0-10.0); %Lymphocytes 17.4 % (21.0-51.0); %Monocytes 9.3 % (0.0-10.0); %Neutrophils 68.5 % (42.0-75.0); Hemoglobin 8.8 g/dL (14.0-18.0); Mean Corpuscular HGB CONC 31.8 g/dL (32.0-36.0); Mean Corpuscular Hemoglobin 29.6 pg (27.0-31.0); Mean Corpuscular Volume 92.8 fl (78.0-98.0); Mean Platelet Volume 5.8 fL (7.4-10.4); Platelet Count 406 10x3/uL (130-400); RBC Distribution Width 14.2 % (11.5-14.5); Red Blood Cell (RBC) Count 2.98 mill/uL (4.70-6.10); White Blood Cell (WBC) Count 7.4 10x3/uL (4.8-10.8)
[2022-07-26 13:00] LABS: Anion Gap 13 mmol/L (10-20); BUN (Urea Nitrogen) 28 mg/dL (8.4-25.7); Calc. Creatinine Clearance 121 mL/min (70-130); Calcium 9.2 mg/dL (7.8-10.44); Carbon Dioxide 23 mmol/L (22-29); Chloride 104 mmol/L (98-107); Estimated GFR 102; Glucose 97 mg/dL (70-105); Potassium 4.3 mmol/L (3.5-5.1); Sodium 136 mmol/L (136-145)
[2022-07-26] MEDS ORDERED: fentaNYL PF 100 MCG/2 ML SYRINGE ONE (14:29)
[2022-07-26] MEDS ORDERED: CEFAZOLIN 2 GM VIAL ONE (14:36)
[2022-07-26] MEDS ORDERED: Sodium Chloride 0.9% 100 ML ONE (14:36)
[2022-07-26] MEDS ORDERED: Bupivacaine/Epinephrine 0.25% 30 ML VIAL ONE (15:07)
[2022-07-26] MEDS ORDERED: FENTANYL 50 MCG/ML 1 ML VIAL ONE (15:49)
[2022-07-26] MEDS ORDERED: HYDROcodone/Acetaminophen 5/325 mg Tablet ONE (16:33)
== END 2022-07-26 16:59 | disposition home or self-care (01) ==
LOC: SDC 11:07
PROVIDERS: ATTEND Specialist
PROC: 0J980ZZ Drainage of Abdomen Subcutaneous Tissue and Fascia, Open Approach (ICD-10-PCS; principal; 2022-07-26)
DX: T81.49XA Infection following a procedure, other surgical site, initial encounter (principal); K91.89 Other postprocedural complications and disorders of digestive system; K63.2 Fistula of intestine; Z87.891 Personal history of nicotine dependence; Z79.2 Long term (current) use of antibiotics; Z79.899 Other long term (current) drug therapy; Z90.49 Acquired absence of other specified parts of digestive tract; Y83.8 Other surgical procedures as the cause of abnormal reaction of the patient, or of later complication, without mention of misadventure at the time of the procedure
CPT/HCPCS: 80048; 85025; 97139; J1885; J3010; J3490

== ENCOUNTER 2022-10-27 08:00 | Outpatient (CLI) | payer BC ==
[2022-10-27] MEDS ORDERED: Iopamidol 370 76% 100 ML VIAL ONE (12:25)
== END 2022-10-27 08:01 | disposition home or self-care (01) ==
LOC: CT 08:00
PROVIDERS: ATTEND Specialist
DX: K63.2 Fistula of intestine (principal); K63.89 Other specified diseases of intestine; Z98.890 Other specified postprocedural states
CPT/HCPCS: 74177; 82565; Q9967

== ENCOUNTER 2022-11-02 12:29 | Outpatient (CLI) | payer SELFPAY | END 2022-11-02 12:30 | disposition home or self-care (01) | LOC: CT 12:29 | PROVIDERS: ATTEND Specialist | DX: K63.2 Fistula of intestine (principal) | CPT/HCPCS: 72192 ==

== ENCOUNTER 2023-02-13 07:19 | Day surgery (SDC) | payer BC ==
[2023-02-09 10:04] VITALS: BMI 29.2
[2023-02-13] MEDS ORDERED: Ketorolac Tromethamine 30 MG/ML VIAL ONE ×2 (07:49→09:50)
[2023-02-13] MEDS ORDERED: CEFAZOLIN 2 GM VIAL ONE (07:49)
[2023-02-13] MEDS ORDERED: Sodium Chloride 0.9% 100 ML ONE (07:49)
[2023-02-13] MEDS ORDERED: Acetaminophen 500 MG TAB ONE (07:49)
[2023-02-13] MEDS ORDERED: fentaNYL PF 100 MCG/2 ML SYRINGE ONE (09:19)
[2023-02-13] MEDS ORDERED: HYDROmorphone 0.5 MG/0.5 ML SYRINGE ONE (09:20)
[2023-02-13] MEDS ORDERED: Bupivacaine/Epinephrine 0.25% 30 ML VIAL ONE (09:21)
[2023-02-13] MEDS ORDERED: Rocuronium Bromide 10 MG/ML (10ML VIAL) ONE (09:50)
[2023-02-13] MEDS ORDERED: ePHEDrine Sulfate 50 MG/10 ML VIAL ONE (09:50)
[2023-02-13] MEDS ORDERED: PHENYLEPHRINE-NS 100 MCG/ML 10 ML SYRINGE ONE (09:50)
[2023-02-13] MEDS ORDERED: NEOSTIGMINE 3 MG/3 ML SYR 3 MG/3 ML SYRINGE ONE (09:50)
[2023-02-13] MEDS ORDERED: Ondansetron PF 4 MG/2 ML Vial ONE (09:50)
[2023-02-13] MEDS ORDERED: PROPOFOL 200 MG/20 ML VIAL ONE (09:50)
[2023-02-13] MEDS ORDERED: Vecuronium 10 MG VIAL ONE (09:50)
[2023-02-13] MEDS ORDERED: GLYCOPYRROLATE/PF 0.2 MG/ML VIAL ONE (09:50)
[2023-02-13] MEDS ORDERED: Dexamethasone 20 MG/5 ML VIAL ONE (09:50)
[2023-02-13] MEDS ORDERED: Lidocaine 1% PF 5 ML VIAL ONE (09:50)
[2023-02-13] MEDS ORDERED: Ropivacaine 0.5% HCl/PF (150 MG/30 ML VIAL) ONE (12:27)
[2023-02-13] MEDS ORDERED: fentaNYL 50 mcg/mL 1 mL Vial ONE ×3 (15:59→16:22)
== END 2023-02-13 18:08 | disposition home or self-care (01) ==
LOC: SDC 07:19
PROVIDERS: ATTEND Specialist
PROC: 0WUF4JZ Supplement Abdominal Wall with Synthetic Substitute, Percutaneous Endoscopic Approach (ICD-10-PCS; principal; 2023-02-13)
DX: K43.2 Incisional hernia without obstruction or gangrene (principal); Z90.49 Acquired absence of other specified parts of digestive tract; Z87.891 Personal history of nicotine dependence
CPT/HCPCS: C1713; J1100; J1170; J1885; J2405; J2704; J2795; J3010; J3490

== ENCOUNTER 2023-05-10 12:59 | Emergency (ER) | payer BC ==
[2023-05-10] MEDS ORDERED: Refresh Lacri-lube Opth Oint 7 GM TUBE L EYE SCH (14:15)
[2023-05-10] MEDS ORDERED: MINERAL OIL/WHITE PETROLATUM 3.5 GM TUBE L EYE SCH (14:30)
== END 2023-05-10 15:13 | disposition home or self-care (01) ==
LOC: ERS 12:59
DX: G51.0 Bell's palsy (principal); I10 Essential (primary) hypertension; K21.9 Gastro-esophageal reflux disease without esophagitis; Z87.891 Personal history of nicotine dependence
CPT/HCPCS: 70450